=== PATIENT | male | born 1930 | race Caucasian/White ===

== ENCOUNTER 2017-01-12 15:24 | Emergency (ER) | payer MEDICARE, MEDICAID ==
--- NOTE | 2017-01-12 15:55 | ER Document Report ---
ED General - General Stated Complaint: LOW BACK PAIN, LEFT LEG PAIN Time seen by provider: 15:50 Mode of Arrival: Ambulatory Information source: Patient Notes: This is a pleasant 86-year-old man with multiple medical problems including coronary artery disease, CHF, atrial fibrillation (chronic anticoagulation), chronic kidney disease, diabetes. The patient presents to the emergency room with 3 weeks of lower back pain radiating down the left lower extremity. Patient denies any bowel incontinence, urinary retention or urinary continence, or any saddle anesthesia. TRAVEL OUTSIDE OF THE [place] IN LAST 30 DAYS: No - HPI Onset: Other Onset/Duration: Gradual - Last 3 weeks Quality of pain: Dull Severity: Moderate Pain Level: 2 Associated symptoms: denies: Chest pain, Fever, Shortness of breath Exacerbated by: Movement, Other Relieved by: Remaining still Similar symptoms previously: Yes Recently seen / treated by doctor: Yes - Related Data Allergies/Adverse Reactions: No Known Allergies Allergy (Verified 04/13/15 06:48) Past Medical History - General Information source: Patient - Social History Smoking Status: Never Smoker Cigarette use (# per day): No Chew tobacco use (# tins/day): No Frequency of alcohol use: None Drug Abuse: None Lives with: [facility] Family History: Reviewed & Not Pertinent Patient has suicidal ideation: No Patient has homicidal ideation: No - Past Medical History Cardiac Medical History: Reports: Hx Atrial Fibrillation, Hx Congestive Heart Failure, Hx Coronary Artery Disease, Hx Heart Attack, Hx Hypercholesterolemia, Hx Hypertension Pulmonary Medical History: Reports: Hx COPD, Hx Pneumonia Endocrine Medical History: Reports: Hx Diabetes Mellitus Type 2 GI Medical History: Reports: Hx Gastroesophageal Reflux Disease Musculoskeltal Medical History: Reports Hx Arthritis Psychiatric Medical History: Reports: Hx Dementia - Has not been diagnosed with dementia but the exam certainly suggests it., Hx Depression Past Surgical History: Reports: Hx Cardiac Catheterization - stents x 3, Hx Cardiac Surgery, Hx Cholecystectomy, 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 , Hx Coronary Stent, Hx Open Heart Surgery, Hx Orthopedic Surgery - Left hip x 2 - Immunizations Hx Diphtheria, Pertussis, Tetanus Vaccination: Yes - Pt unsure of last tetanus shot Hx Pneumococcal Vaccination: 10/06/13 Review of Systems - Review of Systems Notes: Review of systems: Constitutional: Denies fever, chills. EENT: Denies ear pain, sinus tenderness, throat pain, throat swelling. Cardiovascular: Denies chest pain, palpitations, dyspnea or edema. Respiratory: Denies wheezing, cough, hemoptysis. Abdomen: Denies abdominal pain, nausea, vomiting, diarrhea. Denies BRBPR or melena. Genitourinary: Denies dysuria, pyuria, hematuria, flank pain. Musculoskeletal: See H&P Neurologic: Denies headache, photophobia, neck stiffness, weakness. Denies loss of bowel or bladder function. Denies saddle anesthesia. Skin: Denies rash, lesions. Physical Exam - Vital signs Vitals: Temp Pulse Resp BP Pulse Ox 97.9 F 52 L 16 164/90 H 94 01/12/17 15:36 01/12/17 15:36 01/12/17 15:36 01/12/17 15:36 01/12/17 15:36 Notes: Physical exam: GENERAL: A 6-year-old man, alert and oriented 3, no acute distress HEAD: Atraumatic, normocephalic. EYES: Pupils equal round and reactive to light, extraocular movements intact, sclera anicteric, conjunctiva are normal. ENT: Moist mucous membranes. NECK: Normal range of motion, supple without lymphadenopathy or JVD. LUNGS: Breath sounds clear to auscultation bilaterally and equal. No wheezes rales or rhonchi. HEART: Regular rate and rhythm without murmurs, rubs or gallops. ABDOMEN: Soft, normoactive bowel sounds. No tenderness to palpation. No guarding, no rebound. No masses appreciated. Back: Patient does have vertebral tenderness in the lower lumbar area as well as paravertebral tenderness. There is no crepitus or skin changes. EXTREMITIES: He has good range of motion of both hips, no swelling or edema or calf tenderness. No clubbing or cyanosis. NEUROLOGICAL: Cranial nerves II through XII grossly intact. Normal speech, moving all extremities. PSYCH: Normal mood, normal affect. SKIN: Warm, Dry, normal turgor, no rashes or lesions noted. Course - Vital Signs Vital signs: Temp Pulse Resp BP Pulse Ox 98.1 F 56 L 16 148/52 H 94 01/12/17 17:00 01/12/17 17:00 01/12/17 17:00 01/12/17 17:00 01/12/17 17:00 Discharge - Discharge Clinical Impression: low back pain, radiculopathy Condition: Stable Disposition: HOME, SELF-CARE Instructions: Low Back Pain ([facility]), Warm Packs ([facility]) Additional Instructions: The CT of the lumbar spine shows mild compression of. There is osteopenia. Recommendations: Try the gabapentin as prescribed. Continue current medicines. Follow-up with a back specialist or pain specialist: I left the number for the [facility]. Return to the emergency room for worsening back pain, any numbness to the lower extremities, weakness to the lower extremities, difficulty urinating, loss of the ability to control urine, difficulty with bowel movements, loss of sensation to the saddle area. Prescriptions: Gabapentin 100 mg PO TID #10 capsule Referrals: VICK PETERSON MD [ACTIVE STAFF] - Follow up in 3-5 days
[2017-01-12 17:00] VITALS: BP 148/52
== END 2017-01-12 17:29 | disposition home or self-care (01) ==
LOC: ER 15:24
DX: M54.5 Low back pain (principal); M54.10 Radiculopathy, site unspecified; I25.10 Atherosclerotic heart disease of native coronary artery without angina pectoris; I13.0 Hypertensive heart and chronic kidney disease with heart failure and stage 1 through stage 4 chronic kidney disease, or unspecified chronic kidney disease; I50.9 Heart failure, unspecified; N18.9 Chronic kidney disease, unspecified; E11.22 Type 2 diabetes mellitus with diabetic chronic kidney disease; I48.91 Unspecified atrial fibrillation; Z79.01 Long term (current) use of anticoagulants; J44.9 Chronic obstructive pulmonary disease, unspecified; Z98.61 Coronary angioplasty status; Z95.1 Presence of aortocoronary bypass graft
CPT/HCPCS: 72131; 99284

== ENCOUNTER 2017-02-08 22:54 | Inpatient (IN) | payer MEDICARE, MEDICAID ==
--- NOTE | 2017-02-08 23:03 | ER Document Report ---
ED Respiratory Problem - General Mode of Arrival: Medic Information source: Patient, Emergency Med Personnel TRAVEL OUTSIDE OF THE [place] IN LAST 30 DAYS: No - HPI Patient complains to provider of: Other - see narrative Onset: Other Context: Other - pneumonia Short of Breath: Moderate Cough: Productive Similar symptoms previously: Yes Recently seen / treated by doctor: Yes <NIRU DHILLON - Last Filed: 02/09/17 05:47> <CYNTHIA HARDWICK - Last Filed: 03/03/17 11:06> - General Stated Complaint: RESPIRATORY DISTRESS Notes: Patient is an 86-year-old male who resides in a local [facility]pc that presents to the emergency department today with complaints of shortness of breath with a cough. According to EMS, the patient was recently diagnosed with pneumonia and started on Levaquin. Patient complains of left sided chest wall pain as well. EMS states when the patient was off oxygen, his oxygen saturation was in the low 70s. EMS states on 2L of oxygen the patient's oxygen saturation was in the low 80s. Patient has a history of CHF. (NIRU DHILLON) - Related Data Allergies/Adverse Reactions: No Known Allergies Allergy (Verified 04/13/15 06:48) Home Medications: Current Home Medications Acetaminophen [Tylenol 325 mg Tablet] 650 mg PO Q6HP PRN 02/09/17 [History] Amlodipine Besylate [Norvasc 5 mg Tablet] 5 mg PO DAILY 02/09/17 [History] Apixaban [Eliquis 2.5 mg Tablet] 2.5 mg PO Q12 02/09/17 [History] Atorvastatin Calcium [Lipitor 40 mg Tablet] 40 mg PO QHS 02/09/17 [History] Budesonide/Formoterol Fumarate [Symbicort HFA 160-4.5 mcg Inhaler 6 gm] 1 puff IH BID 02/09/17 [History] Doxepin HCl [Silenor] 6 mg PO QHS 02/09/17 [History] Insulin Aspart [Novolog Insulin (Aspart) 100 unit/mL] 0 units SQ .PERSLIDINGSCALE 02/09/17 [History] Ipratropium/Albuterol Sulfate [Duoneb 3 ml Ampul] 3 ml NEB RTTIDP PRN 02/09/17 [ History] Levetiracetam [Keppra 500 mg Tablet] 500 mg PO Q12 02/09/17 [History] Linagliptin [Tradjenta] 5 mg PO DAILY 02/09/17 [History] Omeprazole 20 mg PO DAILY 02/09/17 [History] Sennosides [Senna] 17.2 mg PO QHS 02/09/17 [History] Past Medical History - General Information source: Patient, [facility] Records - Social History Smoking Status: Unknown if Ever Smoked Cigarette use (# per day): No Frequency of alcohol use: None Drug Abuse: None Lives with: Family Family History: Reviewed & Not Pertinent - Past Medical History Cardiac Medical History: Reports: Hx Atrial Fibrillation, Hx Congestive Heart Failure, Hx Coronary Artery Disease, Hx Heart Attack, Hx Hypercholesterolemia, Hx Hypertension Pulmonary Medical History: Reports: Hx COPD, Hx Pneumonia Endocrine Medical History: Reports: Hx Diabetes Mellitus Type 2 GI Medical History: Reports: Hx Gastroesophageal Reflux Disease Musculoskeltal Medical History: Reports Hx Arthritis Psychiatric Medical History: Reports: Hx Dementia - Has not been diagnosed with dementia but the exam certainly suggests it., Hx Depression Past Surgical History: Reports: Hx Cardiac Catheterization - stents x 3, Hx Cardiac Surgery, Hx Cholecystectomy, 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 , Hx Coronary Stent, Hx Open Heart Surgery, Hx Orthopedic Surgery - Left hip x 2 - Immunizations Hx Diphtheria, Pertussis, Tetanus Vaccination: Yes - Pt unsure of last tetanus shot Hx Pneumococcal Vaccination: 10/06/13 <NIRU DHILLON - Last Filed: 02/09/17 05:47> Review of Systems - Review of Systems Constitutional: See HPI, Fever EENT: No symptoms reported Cardiovascular: No symptoms reported Respiratory: See HPI, Cough, Short of breath Gastrointestinal: No symptoms reported Genitourinary: No symptoms reported Male Genitourinary: No symptoms reported Musculoskeletal: No symptoms reported Skin: No symptoms reported Hematologic/Lymphatic: No symptoms reported Neurological/Psychological: No symptoms reported -: Yes All other systems reviewed and negative <NIRU DHILLON - Last Filed: 02/09/17 05:47> Physical Exam <NIRU DHILLON - Last Filed: 02/09/17 05:47> <CYNTHIA HARDWICK - Last Filed: 03/03/17 11:06> - Vital signs Vitals: Resp Pulse Ox 21 H 94 02/08/17 22:58 02/08/17 22:58 - Notes Notes: Physical Exam: General: Alert, appears well. HEENT: Normocephalic. Atraumatic. PERRL. Extraocular movements intact. Oropharynx clear. Neck: Supple. Non-tender. Respiratory: No respiratory distress. Rhonchi at the bases bilaterally. Cardiovascular: Regular rate and rhythm. Abdominal: Obese. Non-tender. No distension. Normal Bowel Sounds. Back: Non-tender. No deformity or step off. Extremities: Moves all four extremities. Upper extremities: Normal inspection. Normal ROM. Lower extremities: Trace pitting edema bilaterally. Neurological: Normal cognition. AAOx4. Normal speech. Psychological: Normal affect. Normal Mood. Skin: Warm. Dry. Normal color. (NIRU DHILLON) Course - Laboratory Result Diagrams: 02/08/17 23:20 02/08/17 23:20 <NIRU DHILLON - Last Filed: 02/09/17 05:47> - Laboratory Result Diagrams: 02/21/17 05:19 02/21/17 05:19 <CYNTHIA HARDWICK - Last Filed: 03/03/17 11:06> - Re-evaluation Re-evalutation: 02/09/17 02:25 Patient presents emergency, chief plain difficulty breathing. Patient has a history of CHF and COPD and is at [facility]. He is a DNR comfort care initially they said he was satting 80% on 2 L is not chronically on oxygen. On examination initially he was well-appearing nontoxic he had no conversational dyspnea but he had crackles throughout. I took him off his CPAP mask because he was tolerating that well. Patient was started on Levaquin today for questionable pneumonia. He is afebrile rectal temp. Chest x-ray shows bilateral failure with cardiomegaly questionable opacities which could or could not be pneumonia. One-handed blood cultures and treated with Javon and Zosyn. Addition to that he has a vascular congestion with left-sided pleural effusion. He has persistent renal insufficiency BUN/creatinine 65 and 1.29. BNP is 11,900 does have a white count elevation of 15,000 with 86 neutrophils. Blood gas is stable at this time. Reevaluation prior to admission he is sleeping 95% on 3 L with a normotensive pressure. And is in no respiratory distress. I did administer Lasix in addition to the IV antibiotics. And hospitalist contacted at [phone] ( CYNTHIA HARDWICK) - Vital Signs Vital signs: Temp Pulse Resp BP Pulse Ox 97.5 F 59 L 16 168/56 H 99 02/21/17 12:00 02/21/17 12:00 02/21/17 12:00 02/21/17 12:00 02/21/17 12:00 - Laboratory Laboratory results interpreted by me: 02/08/17 02/08/17 02/08/17 23:20 23:20 23:20 WBC 15.8 H RBC 3.66 L Hgb 11.1 L Hct 34.7 L RDW 15.6 H Seg Neuts % (Manual) 86 H Lymphocytes % (Manual) 2 L Metamyelocytes % 2 H Abs Neuts (Manual) 13.9 H Abs Lymphs (Manual) 0.3 L Abs Monocytes (Manual) 1.6 H Carbonic Acid ABG pCO2 ABG pO2 ABG O2 Saturation BUN 65 H Creatinine 1.29 H Est GFR (Non-Af Amer) 53 L Glucose 263 H NT-Pro-B Natriuret Pep 54705 H Urine Protein Urine Glucose (UA) Urine Blood 02/08/17 02/09/17 23:20 03:36 WBC RBC Hgb Hct RDW Seg Neuts % (Manual) Lymphocytes % (Manual) Metamyelocytes % Abs Neuts (Manual) Abs Lymphs (Manual) Abs Monocytes (Manual) Carbonic Acid 1.42 H ABG pCO2 47.2 H ABG pO2 68.8 L ABG O2 Saturation 92.9 L BUN Creatinine Est GFR (Non-Af Amer) Glucose NT-Pro-B Natriuret Pep Urine Protein 100 H Urine Glucose (UA) >=500 H Urine Blood SMALL H Critical Care Note - Critical Care Note Total time excluding time spent on procedures (mins): 65 <CYNTHIA HARDWICK - Last Filed: 03/03/17 11:06> Discharge <NIRU DHILLON - Last Filed: 02/09/17 05:47> - Discharge Admitting Provider: Estefanía Unit Admitted: Telemetry <CYNTHIA HARDWICK - Last Filed: 03/03/17 11:06> - Discharge Clinical Impression: acute exacerbation chf, acute pneumonia Acute exacerbation of CHF (congestive heart failure) Qualifiers: Congestive heart failure type: unspecified congestive heart failure type Qualified Code(s): I50.9 - Heart failure, unspecified Pneumonia Qualifiers: Pneumonia type: due to unspecified organism Laterality: unspecified laterality Lung location: unspecified part of lung Qualified Code(s): J18.9 - Pneumonia, unspecified organism Disposition: ADMITTED INPATIENT Scribe Attestation: 02/09/17 02:28 I personally performed the services described in the documentation reviewed the documentation recorded by my scribe in my presence and it accurately and completely records my words and actions (CYNTHIA HARDWICK) Scribe Documentation - Scribe Written by Scribe:: Juliet Perez, [id number] 02/09/2017 acting as scribe for :: El <NIRU DHILLON - Last Filed: 02/09/17 05:47>
[2017-02-08 23:43] LABS: HEMATOCRIT 34.7 % (37.9-51.0); HEMOGLOBIN 11.1 g/dL (13.5-17.0); HGB HCT DIFFERENCE -1.4; MEAN CORPUSCULAR HEMOGLOBIN 30.3 pg (27.0-33.4); MEAN CORPUSCULAR VOLUME 95 fl (80-97); RED BLOOD COUNT 3.66 10^6/uL (4.35-5.55); RED CELL DISTRIBUTION WIDTH 15.6 % (11.5-14.0); WHITE BLOOD COUNT 15.8 10^3/uL (4.0-10.5)
[2017-02-08 23:45] LABS: ARTERIAL BLOOD BASE EXCESS -0.3 mmol/L; ARTERIAL BLOOD O2 SATURATION 92.9 % (94-98)
[2017-02-08 23:56] LABS: ANION GAP 16 (5-19); BLOOD UREA NITROGEN 65 mg/dL (7-20); CALCIUM 9.8 mg/dL (8.4-10.2); CARBON DIOXIDE 23 mmol/L (22-30); CHLORIDE 104 mmol/L (98-107); CREATININE RESULT 1.29 mg/dL (0.52-1.25); GLUCOSE 263 mg/dL (75-110); POTASSIUM 4.7 mmol/L (3.6-5.0); SODIUM 142.9 mmol/L (137-145)
[2017-02-09 00:19] LABS: TROPONIN I 0.062 ng/mL
[2017-02-09 00:20] LABS: BASOPHILS % (MANUAL) 0 % (0-2); EOSINOPHILS % (MANUAL) 0 % (0-6); LYMPHOCYTES % (MANUAL) 2 % (13-45); NUCLEATED RED BLOOD CELLS 1 /100 WBC (0); TOTAL CELLS COUNTED 100
[2017-02-09 00:22] LABS: ANISOCYTOSIS SLIGHT; OVALOCYTES SLIGHT; POIKILOCYTOSIS SLIGHT; POLYCHROMASIA SLIGHT; TOXIC GRANULATION SLIGHT
[2017-02-09] MEDS ORDERED: FUROSEMIDE INJ/PF 100 MG/10 ML SDV IV ONE (01:35)
[2017-02-09] MEDS ORDERED: PIPERACILLIN/TAZOBACTAM 3.375 GM VIAL IV ONE (01:35)
[2017-02-09] MEDS ORDERED: VANCOMYCIN HCL INJ 1000 MG VIAL IV ONE (01:35)
[2017-02-09 04:17] LABS: APPEARANCE,URINE CLEAR; BILIRUBIN,URINE NEGATIVE (NEGATIVE); GLUCOSE, URINE >=500 mg/dL (NEGATIVE); KETONES,URINE NEGATIVE (NEGATIVE); LEUKOCYTE ESTERASE,URINE NEGATIVE (NEGATIVE); NITRITE,URINE NEGATIVE (NEGATIVE); PROTEIN,URINE 100 mg/dL (NEGATIVE); URINE SPECIFIC GRAVITY 1.009; UROBILINOGEN,URINE NEGATIVE mg/dL (<2.0)
[2017-02-09] MEDS: OXYCODONE HCL IR 5 MG TABLET PO PRN ×3 (07:02→21:58)
[2017-02-09] MEDS: CEFTRIAXONE 1 GM/D5W RTU 1 GM/50 ML RTUPB IV SCH (09:13)
--- NOTE | 2017-02-09 12:17 | PDOC H&P ---
History of Present Illness Admission Date/PCP: 02/09/17 06:55 Patient complains of: Difficulty with breathing History of Present Illness: KRISTINE DE ANDA is a 86 year old male patient of Dr Portillo resident at [facility] who was brought to the ED by medic due to worsening difficulty with breathing. Patient was recently diagnosed with pneumonia and started on Levofloxacin at the [facility]. Facility staff reported productive cough and patient reported difficulty with expectoration with left sided chest pain. EMS staff reported significant hypoxemia with oxygen saturation at low 70's on room air but did improve to the upper 80's on supplemental oxygen. There is no reported fever or chills. He does demonstrate hearing impairment. His initial evaluation on the ED suggested air space disease process with pleural effusion. He has extensive CVS disease process, COPD, GERD, Diabetes mellitus, osteoarthritis and hearing impairment. Past Medical History Cardiac Medical History: Reports: Atrial Fibrillation, Congestive Heart Failure , Coronary Artery Disease, Myocardial Infarction, Hyperlipidema, Hypertension Pulmonary Medical History: Reports: Chronic Obstructive Pulmonary Disease (COPD) , Pneumonia Endocrine Medical History: Reports: Diabetes Mellitus Type 2 GI Medical History: Reports: Gastroesophageal Reflux Disease Musculoskeltal Medical History: Reports: Arthritis Psychiatric Medical History: Reports: Dementia - Has not been diagnosed with dementia but the exam certainly suggests it., Depression Past Surgical History Past Surgical History: Reports: Cardiac Catheterization - stents x 3, Cholecystectomy, Coronary Artery Bypass Graft - 3 vessel, Coronary Stent, Orthopedic Surgery - Left hip x 2 Social History Lives with: Family Smoking Status: Unknown if Ever Smoked Frequency of Alcohol Use: None Hx Recreational Drug Use: No Drugs: None Hx Prescription Drug Abuse: No - Advance Directive Resuscitation Status: Do Not Resuscitate Family History Family History: Reviewed & Not Pertinent Parental Family History Reviewed: Yes Children Family History Reviewed: Yes Sibling(s) Family History Reviewed.: Yes Medication/Allergy Home Medications: Acetaminophen [Tylenol 325 mg Tablet] 650 mg PO Q6HP PRN 02/09/17 Amlodipine Besylate [Norvasc 5 mg Tablet] 5 mg PO DAILY 02/09/17 Apixaban [Eliquis 2.5 mg Tablet] 2.5 mg PO Q12 02/09/17 Atorvastatin Calcium [Lipitor 40 mg Tablet] 40 mg PO QHS 02/09/17 Budesonide/Formoterol Fumarate [Symbicort HFA 160-4.5 mcg Inhaler 6 gm] 1 puff IH BID 02/09/17 Doxepin HCl [Silenor] 6 mg PO QHS 02/09/17 Furosemide [Lasix] 20 mg PO BID 02/09/17 Insulin Aspart [Novolog Insulin (Aspart) 100 unit/mL] 0 units SQ .PERSLIDINGSCALE 02/09/17 Ipratropium/Albuterol Sulfate [Duoneb 3 ml Ampul] 3 ml NEB RTTIDP PRN 02/09/17 Levetiracetam [Keppra 500 mg Tablet] 500 mg PO Q12 02/09/17 Levofloxacin [Levaquin 500 mg Tablet] 500 mg PO DAILY 02/09/17 Linagliptin [Tradjenta] 5 mg PO DAILY 02/09/17 Omeprazole 20 mg PO DAILY 02/09/17 Prednisone [Deltasone 10 mg Tablet] 10 mg PO [id number] 02/09/17 Prednisone [Deltasone 20 mg Tablet] 20 mg PO [id number] 02/09/17 Prednisone [Deltasone 20 mg Tablet] 40 mg PO [id number] 02/09/17 Prednisone [Deltasone 20 mg Tablet] 60 mg PO [id number] 02/09/17 Sennosides [Senna] 17.2 mg PO QHS 02/09/17 Allergies/Adverse Reactions: No Known Allergies Allergy (Verified 04/13/15 06:48) Review of Systems Constitutional: ABSENT: chills, fever(s), headache(s), weight gain, weight loss Eyes: ABSENT: visual disturbances Ears: PRESENT: hearing changes Nose, Mouth, and Throat: ABSENT: as per HPI, headache(s), mouth pain, sore throat, vertigo, other Cardiovascular: PRESENT: edema Respiratory: ABSENT: cough, hemoptysis Gastrointestinal: ABSENT: abdominal pain, constipation, diarrhea, hematemesis, hematochezia, nausea, vomiting Musculoskeletal: PRESENT: deformity - related to joint involvement with arthritis Neurological: PRESENT: confusion - probable rlated to his age and hearing impairment, memory loss. ABSENT: abnormal gait, abnormal speech, dizziness, focal weakness, syncope Psychiatric: ABSENT: anxiety, depression, homidical ideation, suicidal ideation Hematologic/Lymphatic: PRESENT: as per HPI, easy bleeding, easy bruising, lymphadenopathy, other Physical Exam Vital Signs: Temp Pulse Resp BP Pulse Ox 97.5 F 56 L 18 156/51 H 94 02/09/17 10:00 02/09/17 10:00 02/09/17 10:00 02/09/17 10:00 02/09/17 10:00 Intake & Output 02/08/17 02/09/17 02/10/17 06:59 06:59 06:59 Intake Total 120 Balance 120 General appearance: PRESENT: cooperative, mild distress - on supplemental oxygen at 2L/min Head exam: PRESENT: atraumatic, normocephalic Eye exam: PRESENT: conjunctiva pink, EOMI, PERRLA. ABSENT: scleral icterus Ear exam: PRESENT: normal external ear exam Mouth exam: PRESENT: moist Throat exam: ABSENT: post pharyngeal erythema, tonsillar erythema, tonsillar exudate, tonsillogmegaly, other Neck exam: PRESENT: full ROM. ABSENT: carotid bruit, JVD, lymphadenopathy, thyromegaly Respiratory exam: PRESENT: chest wall tenderness, clear to auscultation brandy, crackles, decreased breath sounds - bilaterally at lung bases Cardiovascular exam: PRESENT: RRR. ABSENT: diastolic murmur, rubs, systolic murmur Pulses: PRESENT: normal dorsalis pedis pul, +2 pedal pulses bilateral Vascular exam: PRESENT: normal capillary refill GI/Abdominal exam: PRESENT: normal bowel sounds, soft. ABSENT: distended, guarding, mass, organolmegaly, rebound, tenderness Rectal exam: PRESENT: deferred Extremities exam: PRESENT: pedal edema - to below knee level bilaterally Musculoskeletal exam: PRESENT: deformity - related to multiple joints involvement with arthritis Neurological exam: PRESENT: alert, awake, oriented to situation Psychiatric exam: PRESENT: appropriate affect, normal mood. ABSENT: homicidal ideation, suicidal ideation Skin exam: PRESENT: dry, intact, warm. ABSENT: cyanosis, rash Results Laboratory Results: I reviewed results on [employer]. These were reviewed and form significant part of my decision making. Impressions: Chest X-Ray 02/08/17 23:04 IMPRESSION: Cardiomegaly and mild central vascular congestion. Moderate left pleural effusion. Bibasilar airspace opacities, may represent pneumonia or asymmetric edema. Radiographic followup to resolution recommended. Assessment & Plan - Diagnosis (1) Acute on chronic systolic CHF (congestive heart failure) Is this a current diagnosis for this admission?: YesPlan: See covering admitting physician orders (2) Pneumonia Qualifiers: Pneumonia type: due to unspecified organism Laterality: unspecified laterality Lung location: unspecified part of lung Qualified Code(s) : J18.9 - Pneumonia, unspecified organism Is this a current diagnosis for this admission?: YesPlan: See covering admitting physician orders (3) Acute and chronic respiratory failure with hypoxia Is this a current diagnosis for this admission?: YesPlan: See covering admitting physician orders (4) Chronic obstructive pulmonary disease Qualifiers: COPD type: COPD with acute lower respiratory infection Qualified Code(s): J44.0 - Chronic obstructive pulmonary disease with acute lower respiratory infection Is this a current diagnosis for this admission?: YesPlan: See covering admitting physician orders (5) DNR (do not resuscitate) Is this a current diagnosis for this admission?: YesPlan: See covering admitting physician orders (6) Diabetes mellitus, type II Qualifiers: Diabetes mellitus complication status: with kidney complications Diabetes mellitus complication detail: with chronic kidney disease 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 insulin use: without usp use Chronic kidney disease stage: stage 3 (moderate) Qualified Code(s): E11.22 - Type 2 diabetes mellitus with diabetic chronic kidney disease; N18.1 - Chronic kidney disease, stage 1; Z79.4 - MCFP (current) use of insulin Plan: See covering admitting physician orders (7) Gastroesophageal reflux disease Qualifiers: Esophagitis presence: without esophagitis Qualified Code(s): K21.9 - Gastro-esophageal reflux disease without esophagitis Is this a current diagnosis for this admission?: YesPlan: See covering admitting physician orders (8) Chronic atrial fibrillation Is this a current diagnosis for this admission?: YesPlan: See covering admitting physician orders (9) Hypertension Qualifiers: Hypertension type: essential hypertension Qualified Code(s): I10 - Essential (primary) hypertension Is this a current diagnosis for this admission?: YesPlan: See covering admitting physician orders - Time Time Spent: 50 to 70 Minutes Medications reviewed and adjusted accordingly: Yes Anticipated discharge: SNF Within: Other - Inpatient Certification Based on my medical assessment, after consideration of the patient's comorbidities, presenting symptoms, or acuity I expect that the services needed warrant INPATIENT care.: Yes I certify that my determination is in accordance with my understanding of Medicare's requirements for reasonable and necessary INPATIENT services [42 CFR 412.3e].: Yes Medical Necessity: Need Close Monitoring Due to Risk of Patient Decompensation, Need For IV Fluids, Need For Continuous Telemetry Monitoring, Need for Nebulizer Therapy and Monitoring of Response, Need for IV Antibiotics, Risk of Complication if Not Cared For in Hospital Post Hospital Care: D/C or Transfer Summary - Plan Summary Plan Summary: See covering admitting physician orders
[2017-02-09] MEDS ORDERED: GLUCAGON,HUMAN RECOMB 1 MG INJ IM PRN (12:24)
[2017-02-09] MEDS ORDERED: DEXTROSE 50%-WATER 25 GM/50 ML DISP.SYRIN IV PRN ×2 (12:24)
[2017-02-09] MEDS ORDERED: DEXTROSE 40% GEL 15 GM TUBE PO PRN ×2 (12:24)
[2017-02-09] MEDS: CLINDAMYCIN 600 MG/D5W RTU 50 ML IV SCH ×2 (13:56→21:58)
[2017-02-09] MEDS: ACETAMINOPHEN 325 MG TABLET PO PRN ×2 (15:01→21:58)
[2017-02-09] MEDS: BUDESONIDE/FORMOTEROL 160-4.5 MCG 60 PUFF/6 GM MDI IH SCH (17:00)
[2017-02-09] MEDS: INSULIN LISPRO 100 UNIT/ML 3 ML VIAL SUBCUT PRN (17:01)
[2017-02-09] MEDS: ATORVASTATIN CALCIUM 40 MG TABLET PO SCH (21:57)
[2017-02-09] MEDS: APIXABAN 2.5 MG TABLET PO SCH (21:58)
[2017-02-09] MEDS ORDERED: (PENDING PHARMACY ID) (Sennosides [Senna] 17.2 MG) PO SCH (22:00)
[2017-02-09] MEDS: LEVETIRACETAM 500 MG TABLET PO SCH (22:00)
[2017-02-10] MEDS: ACETAMINOPHEN 325 MG TABLET PO PRN ×2 (03:59→17:39)
[2017-02-10] MEDS: OXYCODONE HCL IR 5 MG TABLET PO PRN ×2 (03:59→17:45)
[2017-02-10 05:40] LABS: HEMATOCRIT 35.2 % (37.9-51.0); HEMOGLOBIN 11.6 g/dL (13.5-17.0); HGB HCT DIFFERENCE -0.4; MEAN CORPUSCULAR HEMOGLOBIN 30.6 pg (27.0-33.4); MEAN CORPUSCULAR HGB CONC 32.8 g/dL (32.0-36.0); MEAN CORPUSCULAR VOLUME 93 fl (80-97); RED BLOOD COUNT 3.78 10^6/uL (4.35-5.55); WHITE BLOOD COUNT 15.3 10^3/uL (4.0-10.5)
[2017-02-10 05:55] LABS: ALANINE AMINOTRANSFERASE 27 U/L (21-72); ALBUMIN 3.3 g/dL (3.5-5.0); ALKALINE PHOSPHATASE 88 U/L (38-126); ANION GAP 7 (5-19); ASPARTATE AMINO TRANSFERASE 19 U/L (17-59); BILIRUBIN,DIRECT 0.5 mg/dL (0.0-0.4); BILIRUBIN,TOTAL 1.1 mg/dL (0.2-1.3); BLOOD UREA NITROGEN 59 mg/dL (7-20); CALCIUM 9.2 mg/dL (8.4-10.2); CARBON DIOXIDE 29 mmol/L (22-30); CHLORIDE 105 mmol/L (98-107); CHOLESTEROL 144.02 mg/dL (0-200); Direct HDL 80 mg/dL (>40); GLUCOSE 232 mg/dL (75-110); POTASSIUM 4.8 mmol/L (3.6-5.0); SODIUM 141.4 mmol/L (137-145); TOTAL PROTEIN 6.4 g/dL (6.3-8.2); TRIGLYCERIDES 79 mg/dL (<150)
[2017-02-10 06:06] LABS: DIRECT LDL 31 mg/dL (<100)
[2017-02-10 06:16] LABS: BAND NEUTROPHILS % (MANUAL) 1 % (3-5); BASOPHILS % (MANUAL) 0 % (0-2); EOSINOPHILS % (MANUAL) 2 % (0-6); LYMPHOCYTES % (MANUAL) 8 % (13-45); TOTAL CELLS COUNTED 100
[2017-02-10 06:17] LABS: ANISOCYTOSIS SLIGHT; HYPOCHROMASIA SLIGHT; OVALOCYTES SLIGHT; POIKILOCYTOSIS SLIGHT
[2017-02-10] MEDS: LANSOPRAZOLE 30 MG TAB.RAP.DR PO SCH (06:21)
[2017-02-10] MEDS: CLINDAMYCIN 600 MG/D5W RTU 50 ML IV SCH ×3 (06:21→22:52)
[2017-02-10] MEDS: CEFTRIAXONE 1 GM/D5W RTU 1 GM/50 ML RTUPB IV SCH (09:56)
[2017-02-10] MEDS: SITAGLIPTIN PHOSPHATE 50 MG TABLET PO SCH (09:57)
[2017-02-10] MEDS: LEVETIRACETAM 500 MG TABLET PO SCH ×2 (09:57→22:52)
[2017-02-10] MEDS: AMLODIPINE BESYLATE 5 MG TABLET PO SCH (09:58)
[2017-02-10] MEDS: FUROSEMIDE INJ/PF 40 MG/4 ML SDV IV SCH (09:58)
[2017-02-10] MEDS: BUDESONIDE/FORMOTEROL 160-4.5 MCG 60 PUFF/6 GM MDI IH SCH ×2 (09:58→17:39)
[2017-02-10] MEDS ORDERED: (PENDING PHARMACY ID) (Linagliptin [Tradjenta] 5 MG) PO SCH (10:00)
[2017-02-10] MEDS: APIXABAN 2.5 MG TABLET PO SCH ×2 (10:02→22:51)
[2017-02-10] MEDS: IPRATROPIUM/ALBUTEROL 0.5-2.5 MG/3 ML AMPUL NEB PRN (11:43)
[2017-02-10] MEDS: INSULIN LISPRO 100 UNIT/ML 3 ML VIAL SUBCUT PRN ×2 (14:32→22:51)
[2017-02-10] MEDS: SENNOSIDES/DOCUSATE 8.6-50 MG 1 EACH TABLET PO SCH (22:51)
[2017-02-10] MEDS: ATORVASTATIN CALCIUM 40 MG TABLET PO SCH (22:52)
[2017-02-11] MEDS: ACETAMINOPHEN 325 MG TABLET PO PRN ×2 (03:31→17:57)
[2017-02-11] MEDS: CLINDAMYCIN 600 MG/D5W RTU 50 ML IV SCH ×3 (05:31→21:27)
[2017-02-11] MEDS: LANSOPRAZOLE 30 MG TAB.RAP.DR PO SCH (05:32)
[2017-02-11] MEDS: OXYCODONE HCL IR 5 MG TABLET PO PRN ×2 (05:34→17:57)
[2017-02-11] MEDS: FUROSEMIDE INJ/PF 40 MG/4 ML SDV IV SCH (10:28)
[2017-02-11] MEDS: SITAGLIPTIN PHOSPHATE 50 MG TABLET PO SCH (10:29)
[2017-02-11] MEDS: APIXABAN 2.5 MG TABLET PO SCH ×2 (10:29→21:27)
[2017-02-11] MEDS: LEVETIRACETAM 500 MG TABLET PO SCH ×2 (10:29→21:27)
[2017-02-11] MEDS: CEFTRIAXONE 1 GM/D5W RTU 1 GM/50 ML RTUPB IV SCH (10:29)
[2017-02-11] MEDS: BUDESONIDE/FORMOTEROL 160-4.5 MCG 60 PUFF/6 GM MDI IH SCH ×2 (10:29→17:57)
[2017-02-11] MEDS: AMLODIPINE BESYLATE 5 MG TABLET PO SCH (10:29)
[2017-02-11] MEDS: IPRATROPIUM/ALBUTEROL 0.5-2.5 MG/3 ML AMPUL NEB PRN (11:07)
[2017-02-11] MEDS: INSULIN LISPRO 100 UNIT/ML 3 ML VIAL SUBCUT PRN ×2 (18:29→21:56)
--- NOTE | 2017-02-11 18:39 | PDOC PROGRESS REPORT ---
Subjective Progress Note for:: 02/11/17 Subjective:: Patient complains of left-sided pleuritic chest pain. Physical Exam Vital Signs: Temp Pulse Resp BP Pulse Ox 97.9 F 65 18 151/42 H 100 02/11/17 11:46 02/11/17 11:46 02/11/17 11:46 02/11/17 11:46 02/11/17 11:46 Intake & Output 02/10/17 02/11/17 02/12/17 06:59 06:59 06:59 Intake Total 1080 750 Balance 1080 750 General appearance: PRESENT: no acute distress Eye exam: PRESENT: conjunctiva pink. ABSENT: scleral icterus Mouth exam: PRESENT: moist, tongue midline Neck exam: PRESENT: JVD Respiratory exam: PRESENT: decreased breath sounds - Decreased breath sounds in the left base., rales - Left basilar respiratory Rales. ABSENT: rhonchi, wheezes Cardiovascular exam: PRESENT: RRR. ABSENT: diastolic murmur, rubs, systolic murmur Vascular exam: PRESENT: normal capillary refill GI/Abdominal exam: PRESENT: normal bowel sounds, soft. ABSENT: distended, guarding, mass, organolmegaly, rebound, tenderness Extremities exam: PRESENT: pedal edema, +1 edema. ABSENT: calf tenderness, clubbing Neurological exam: PRESENT: alert, awake, oriented to person, oriented to place , oriented to time, oriented to situation, CN II-XII grossly intact. ABSENT: motor sensory deficit Psychiatric exam: PRESENT: appropriate affect Skin exam: PRESENT: dry, intact, warm. ABSENT: cyanosis, rash Results Laboratory Results: 02/10/17 05:06 02/10/17 05:06 Impressions: Chest X-Ray 02/08/17 23:04 IMPRESSION: Cardiomegaly and mild central vascular congestion. Moderate left pleural effusion. Bibasilar airspace opacities, may represent pneumonia or asymmetric edema. Radiographic followup to resolution recommended. Assessment & Plan - Diagnosis (1) Acute and chronic respiratory failure with hypoxia Is this a current diagnosis for this admission?: YesPlan: This most likely secondary to both pneumonia and congestive heart failure. Patient initially required BiPAP but is improving. (2) Acute on chronic systolic CHF (congestive heart failure) Is this a current diagnosis for this admission?: YesPlan: Patient is receiving IV Lasix. He still has left basilar rales. (3) Pneumonia Qualifiers: Pneumonia type: due to unspecified organism Laterality: unspecified laterality Lung location: unspecified part of lung Qualified Code(s) : J18.9 - Pneumonia, unspecified organism Is this a current diagnosis for this admission?: YesPlan: Continue with the Rocephin. Patient is complaining of left-sided pleuritic chest pain. This may be all related to the pneumonia however given his worsening pain will get a chest CT to rule out a pulmonary embolism. (4) Atrial fibrillation Is this a current diagnosis for this admission?: YesPlan: Patient is rate controlled at this time. (5) CAD (coronary artery disease) Qualifiers: Coronary Disease-Associated Artery/Lesion type: [place] artery [place] vs. transplanted heart: [place] heart Associated angina: without angina Qualified Code(s): I25.10 - Atherosclerotic heart disease of [place] coronary artery without angina pectoris Is this a current diagnosis for this admission?: YesPlan: Complaints of pleuritic chest pain. This does not appear to be cardiac in nature. 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 (8) Gastroesophageal reflux disease Qualifiers: Esophagitis presence: without esophagitis Qualified Code(s): K21.9 - Gastro-esophageal reflux disease without esophagitis Is this a current diagnosis for this admission?: Yes (9) Hypertension Qualifiers: Hypertension type: essential hypertension Qualified Code(s): I10 - Essential (primary) hypertension Is this a current diagnosis for this admission?: Yes - Time Time Spent with patient: 25-34 minutes - Plan Summary Plan Summary: We'll continue with IV Lasix and get a chest CT tonight.
[2017-02-11] MEDS: SENNOSIDES/DOCUSATE 8.6-50 MG 1 EACH TABLET PO SCH (21:27)
[2017-02-11] MEDS: ATORVASTATIN CALCIUM 40 MG TABLET PO SCH (21:27)
[2017-02-12] MEDS: CLINDAMYCIN 600 MG/D5W RTU 50 ML IV SCH ×3 (05:50→22:21)
[2017-02-12] MEDS: LANSOPRAZOLE 30 MG TAB.RAP.DR PO SCH (05:52)
[2017-02-12] MEDS: OXYCODONE HCL IR 5 MG TABLET PO PRN ×4 (05:52→22:21)
[2017-02-12] MEDS: ACETAMINOPHEN 325 MG TABLET PO PRN ×3 (05:52→22:21)
[2017-02-12] MEDS: LEVETIRACETAM 500 MG TABLET PO SCH ×2 (09:05→22:21)
[2017-02-12] MEDS: AMLODIPINE BESYLATE 5 MG TABLET PO SCH (09:05)
[2017-02-12] MEDS: SITAGLIPTIN PHOSPHATE 50 MG TABLET PO SCH (09:05)
[2017-02-12] MEDS: CEFTRIAXONE 1 GM/D5W RTU 1 GM/50 ML RTUPB IV SCH (09:06)
[2017-02-12] MEDS: APIXABAN 2.5 MG TABLET PO SCH ×2 (09:06→22:27)
[2017-02-12] MEDS: BUDESONIDE/FORMOTEROL 160-4.5 MCG 60 PUFF/6 GM MDI IH SCH ×2 (09:06→17:22)
[2017-02-12] MEDS: FUROSEMIDE INJ/PF 40 MG/4 ML SDV IV SCH (09:06)
--- NOTE | 2017-02-12 10:53 | PDOC PROGRESS REPORT ---
Subjective Progress Note for:: 02/12/17 Subjective:: Patient complains of left-sided pleuritic chest pain. CT angiography of the lungs yesterday was negative for any pulmonary embolism. Physical Exam Vital Signs: Temp Pulse Resp BP Pulse Ox 97.6 F 62 18 155/54 H 95 02/12/17 03:15 02/12/17 07:00 02/12/17 03:15 02/12/17 03:15 02/12/17 08:02 Intake & Output 02/11/17 02/12/17 02/13/17 06:59 06:59 06:59 Intake Total 750 537 Balance 750 537 General appearance: PRESENT: no acute distress Eye exam: PRESENT: conjunctiva pink. ABSENT: scleral icterus Ear exam: PRESENT: normal external ear exam Mouth exam: PRESENT: moist, tongue midline Neck exam: ABSENT: JVD Respiratory exam: PRESENT: decreased breath sounds - Decreased breath sounds in the left base., rales - Left basilar inspiratory rails. ABSENT: rhonchi, wheezes Cardiovascular exam: PRESENT: RRR. ABSENT: diastolic murmur, rubs, systolic murmur GI/Abdominal exam: PRESENT: normal bowel sounds, soft. ABSENT: distended, guarding, mass, organolmegaly, rebound, tenderness Extremities exam: ABSENT: calf tenderness, clubbing, pedal edema Neurological exam: PRESENT: alert, awake, oriented to person, oriented to place , oriented to time, oriented to situation, CN II-XII grossly intact. ABSENT: motor sensory deficit Psychiatric exam: PRESENT: appropriate affect Skin exam: PRESENT: dry, intact, warm. ABSENT: cyanosis, rash Results Laboratory Results: 02/10/17 05:06 02/10/17 05:06 Impressions: Chest X-Ray 02/08/17 23:04 IMPRESSION: Cardiomegaly and mild central vascular congestion. Moderate left pleural effusion. Bibasilar airspace opacities, may represent pneumonia or asymmetric edema. Radiographic followup to resolution recommended. Chest/Abdomen CTA 02/11/17 00:00 IMPRESSION: No evidence for pulmonary embolic disease. Moderate size bilateral pleural effusions are identified with a possible loculated component on the left. There is associated airspace consolidation most consistent with atelectatic changes although I cannot exclude pneumonic consolidations. Other findings as noted above Assessment & Plan - Diagnosis (1) Acute and chronic respiratory failure with hypoxia Is this a current diagnosis for this admission?: YesPlan: This most likely secondary to both pneumonia and congestive heart failure. Patient initially required BiPAP but is improving. (2) Acute on chronic systolic CHF (congestive heart failure) Is this a current diagnosis for this admission?: YesPlan: Patient is receiving IV Lasix. He still has left basilar rales. (3) Pneumonia Qualifiers: Pneumonia type: due to unspecified organism Laterality: unspecified laterality Lung location: unspecified part of lung Qualified Code(s) : J18.9 - Pneumonia, unspecified organism Is this a current diagnosis for this admission?: YesPlan: Continue with the Rocephin. Patient is complaining of left-sided pleuritic chest pain. Chest CTA was negative for pulmonary embolism. He does have an effusion. (4) Atrial fibrillation Is this a current diagnosis for this admission?: YesPlan: Patient is rate controlled at this time. (5) CAD (coronary artery disease) Qualifiers: Coronary Disease-Associated Artery/Lesion type: [place] artery [place] vs. transplanted heart: [place] heart Associated angina: without angina Qualified Code(s): I25.10 - Atherosclerotic heart disease of [place] coronary artery without angina pectoris Is this a current diagnosis for this admission?: YesPlan: Complaints of pleuritic chest pain. This does not appear to be cardiac in nature. (6) DNR (do not resuscitate) Is this a current diagnosis for this admission?: Yes (7) Diabetes mellitus, type II Qualifiers: Diabetes mellitus complication status: with kidney complications Diabetes mellitus complication detail: with chronic kidney disease Diabetes mellitus fpc insulin use: without fpc use Chronic kidney disease stage: stage 3 (moderate) Qualified Code(s): E11.22 - Type 2 diabetes mellitus with diabetic chronic kidney disease; N18.1 - Chronic kidney disease, stage 1; Z79.4 - USP (current) use of insulin Is this a current diagnosis for this admission?: YesPlan: Continue with sliding scale insulin. Will change to a regular diet as the patient is insistent he does not have to follow diabetic diet (8) Gastroesophageal reflux disease Qualifiers: Esophagitis presence: without esophagitis Qualified Code(s): K21.9 - Gastro-esophageal reflux disease without esophagitis Is this a current diagnosis for this admission?: YesPlan: Asymptomatic (9) Hypertension Qualifiers: Hypertension type: essential hypertension Qualified Code(s): I10 - Essential (primary) hypertension Is this a current diagnosis for this admission?: Yes - Time Time Spent with patient: 25-34 minutes - Inpatient Certification Medical Necessity: Need Close Monitoring Due to Risk of Patient Decompensation, Need for IV Antibiotics
[2017-02-12] MEDS: SENNOSIDES/DOCUSATE 8.6-50 MG 1 EACH TABLET PO SCH (22:21)
[2017-02-12] MEDS: INSULIN LISPRO 100 UNIT/ML 3 ML VIAL SUBCUT PRN (22:21)
[2017-02-12] MEDS: ATORVASTATIN CALCIUM 40 MG TABLET PO SCH (22:21)
[2017-02-13] MEDS: CLINDAMYCIN 600 MG/D5W RTU 50 ML IV SCH ×3 (05:50→20:53)
[2017-02-13] MEDS: OXYCODONE HCL IR 5 MG TABLET PO PRN ×2 (05:50→20:53)
[2017-02-13] MEDS: ACETAMINOPHEN 325 MG TABLET PO PRN (05:51)
[2017-02-13] MEDS: LANSOPRAZOLE 30 MG TAB.RAP.DR PO SCH (05:53)
[2017-02-13 06:27] LABS: ABSOLUTE EOSINOPHILS # (AUTO) 0.4 10^3/uL (0.0-0.6); ABSOLUTE NEUT (AUTO) 5.6 10^3/uL (1.7-8.2); BASOPHILS % (AUTO) 0.4 % (0-2); EOSINOPHILS % (AUTO) 4.6 % (0-6); HEMATOCRIT 35.7 % (37.9-51.0); HEMOGLOBIN 11.5 g/dL (13.5-17.0); HGB HCT DIFFERENCE -1.2; LYMPHOCYTES % (AUTO) 12.3 % (13-45); MEAN CORPUSCULAR HEMOGLOBIN 30.1 pg (27.0-33.4); MEAN CORPUSCULAR HGB CONC 32.1 g/dL (32.0-36.0); MEAN CORPUSCULAR VOLUME 94 fl (80-97); MONOCYTES % (AUTO) 12.4 % (3-13); RED CELL DISTRIBUTION WIDTH 15.3 % (11.5-14.0); SEGMENTED NEUTROPHILS % (AUTO) 70.3 % (42-78); WHITE BLOOD COUNT 7.9 10^3/uL (4.0-10.5)
[2017-02-13 06:47] LABS: ANION GAP 11 (5-19); BLOOD UREA NITROGEN 42 mg/dL (7-20); CALCIUM 8.7 mg/dL (8.4-10.2); CARBON DIOXIDE 32 mmol/L (22-30); CHLORIDE 103 mmol/L (98-107); CREATININE RESULT 1.08 mg/dL (0.52-1.25); GLUCOSE 91 mg/dL (75-110); POTASSIUM 4.6 mmol/L (3.6-5.0); SODIUM 146.3 mmol/L (137-145)
[2017-02-13] MEDS: CEFTRIAXONE 1 GM/D5W RTU 1 GM/50 ML RTUPB IV SCH (09:46)
[2017-02-13] MEDS: LEVETIRACETAM 500 MG TABLET PO SCH ×2 (09:48→20:57)
[2017-02-13] MEDS: SITAGLIPTIN PHOSPHATE 50 MG TABLET PO SCH (09:48)
[2017-02-13] MEDS: FUROSEMIDE INJ/PF 40 MG/4 ML SDV IV SCH (09:48)
[2017-02-13] MEDS: APIXABAN 2.5 MG TABLET PO SCH ×2 (09:48→20:55)
[2017-02-13] MEDS: BUDESONIDE/FORMOTEROL 160-4.5 MCG 60 PUFF/6 GM MDI IH SCH ×2 (09:49→17:18)
[2017-02-13] MEDS: AMLODIPINE BESYLATE 5 MG TABLET PO SCH (09:49)
--- NOTE | 2017-02-13 11:59 | PDOC PROGRESS REPORT ---
Subjective Progress Note for:: 02/13/17 Subjective:: Patient complains of left-sided pleuritic chest pain. Physical Exam Vital Signs: Temp Pulse Resp BP Pulse Ox 97.3 F 58 L 18 152/48 H 100 02/13/17 01:04 02/13/17 11:24 02/13/17 11:24 02/13/17 01:04 02/13/17 01:04 Intake & Output 02/12/17 02/13/17 02/14/17 06:59 06:59 06:59 Intake Total 537 250 Balance 537 250 General appearance: PRESENT: no acute distress Eye exam: PRESENT: conjunctiva pink. ABSENT: scleral icterus Mouth exam: PRESENT: moist, tongue midline Neck exam: ABSENT: JVD Respiratory exam: PRESENT: decreased breath sounds - Decreased breath sounds in the left base., rales - Left basilar rales. ABSENT: rhonchi, wheezes Cardiovascular exam: PRESENT: RRR. ABSENT: diastolic murmur, rubs, systolic murmur GI/Abdominal exam: PRESENT: normal bowel sounds, soft. ABSENT: distended, guarding, mass, organolmegaly, rebound, tenderness Extremities exam: ABSENT: calf tenderness, clubbing, pedal edema Neurological exam: PRESENT: alert, awake, oriented to person, oriented to place , oriented to time, oriented to situation, CN II-XII grossly intact. ABSENT: motor sensory deficit Psychiatric exam: PRESENT: appropriate affect Skin exam: PRESENT: dry, intact, warm. ABSENT: cyanosis, rash Results Laboratory Results: 02/13/17 05:41 02/13/17 05:41 02/13/17 02/13/17 05:41 05:41 WBC 7.9 RBC 3.80 L Hgb 11.5 L Hct 35.7 L MCV 94 MCH 30.1 MCHC 32.1 RDW 15.3 H Plt Count 130 L Seg Neutrophils % 70.3 Lymphocytes % 12.3 L Monocytes % 12.4 Eosinophils % 4.6 Basophils % 0.4 Absolute Neutrophils 5.6 Absolute Lymphocytes 1.0 Absolute Monocytes 1.0 Absolute Eosinophils 0.4 Absolute Basophils 0.0 Sodium 146.3 H Potassium 4.6 Chloride 103 Carbon Dioxide 32 H Anion Gap 11 BUN 42 H Creatinine 1.08 Est GFR ( Amer) > 60 Est GFR (Non-Af Amer) > 60 Glucose 91 Calcium 8.7 Impressions: Chest X-Ray 02/08/17 23:04 IMPRESSION: Cardiomegaly and mild central vascular congestion. Moderate left pleural effusion. Bibasilar airspace opacities, may represent pneumonia or asymmetric edema. Radiographic followup to resolution recommended. Chest/Abdomen CTA 02/11/17 00:00 IMPRESSION: No evidence for pulmonary embolic disease. Moderate size bilateral pleural effusions are identified with a possible loculated component on the left. There is associated airspace consolidation most consistent with atelectatic changes although I cannot exclude pneumonic consolidations. Other findings as noted above Assessment & Plan - Diagnosis (1) Acute and chronic respiratory failure with hypoxia Is this a current diagnosis for this admission?: YesPlan: This most likely secondary to both pneumonia and congestive heart failure. Patient initially required BiPAP but is improving. (2) Acute on chronic systolic CHF (congestive heart failure) Is this a current diagnosis for this admission?: YesPlan: Patient is receiving IV Lasix. He still has left basilar rales. (3) Pneumonia Qualifiers: Pneumonia type: due to unspecified organism Laterality: unspecified laterality Lung location: unspecified part of lung Qualified Code(s) : J18.9 - Pneumonia, unspecified organism Is this a current diagnosis for this admission?: YesPlan: Continue with the Rocephin. Patient is complaining of left-sided pleuritic chest pain. Chest CTA was negative for pulmonary embolism. He does have an effusion. If he does not improve in the next 24-48 hours we'll consult pulmonary medicine (4) Atrial fibrillation Is this a current diagnosis for this admission?: YesPlan: Patient is rate controlled at this time. (5) CAD (coronary artery disease) Qualifiers: Coronary Disease-Associated Artery/Lesion type: [place] artery [place] vs. transplanted heart: [place] heart Associated angina: without angina Qualified Code(s): I25.10 - Atherosclerotic heart disease of [place] coronary artery without angina pectoris Is this a current diagnosis for this admission?: YesPlan: Complaints of pleuritic chest pain. This does not appear to be cardiac in nature. 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 (8) Gastroesophageal reflux disease Qualifiers: Esophagitis presence: without esophagitis Qualified Code(s): K21.9 - Gastro-esophageal reflux disease without esophagitis Is this a current diagnosis for this admission?: YesPlan: Asymptomatic (9) Hypertension Qualifiers: Hypertension type: essential hypertension Qualified Code(s): I10 - Essential (primary) hypertension Is this a current diagnosis for this admission?: Yes - Time Time Spent with patient: 25-34 minutes - Inpatient Certification Medical Necessity: Need Close Monitoring Due to Risk of Patient Decompensation, Need for IV Antibiotics
[2017-02-13] MEDS: INSULIN LISPRO 100 UNIT/ML 3 ML VIAL SUBCUT PRN (12:54)
[2017-02-13] MEDS: ATORVASTATIN CALCIUM 40 MG TABLET PO SCH (20:52)
[2017-02-13] MEDS: SENNOSIDES/DOCUSATE 8.6-50 MG 1 EACH TABLET PO SCH (20:52)
[2017-02-14] MEDS: OXYCODONE HCL IR 5 MG TABLET PO PRN ×3 (03:17→17:22)
[2017-02-14 04:58] LABS: ABSOLUTE BASOPHILS # (AUTO) 0.1 10^3/uL (0.0-0.2); ABSOLUTE EOSINOPHILS # (AUTO) 0.2 10^3/uL (0.0-0.6); ABSOLUTE LYMPHOCYTES (AUTO) 0.9 10^3/uL (0.5-4.7); ABSOLUTE MONOCYTES (AUTO) 0.9 10^3/uL (0.1-1.4); ABSOLUTE NEUT (AUTO) 5.6 10^3/uL (1.7-8.2); BASOPHILS % (AUTO) 0.8 % (0-2); HEMATOCRIT 33.3 % (37.9-51.0); HEMOGLOBIN 10.9 g/dL (13.5-17.0); HGB HCT DIFFERENCE -0.6; LYMPHOCYTES % (AUTO) 11.6 % (13-45); MEAN CORPUSCULAR HEMOGLOBIN 30.3 pg (27.0-33.4); MEAN CORPUSCULAR HGB CONC 32.7 g/dL (32.0-36.0); MEAN CORPUSCULAR VOLUME 93 fl (80-97); MONOCYTES % (AUTO) 11.8 % (3-13); RED CELL DISTRIBUTION WIDTH 14.8 % (11.5-14.0); SEGMENTED NEUTROPHILS % (AUTO) 72.8 % (42-78); WHITE BLOOD COUNT 7.7 10^3/uL (4.0-10.5)
[2017-02-14 05:22] LABS: ANION GAP 10 (5-19); BLOOD UREA NITROGEN 36 mg/dL (7-20); CALCIUM 8.7 mg/dL (8.4-10.2); CARBON DIOXIDE 30 mmol/L (22-30); CHLORIDE 104 mmol/L (98-107); CREATININE RESULT 1.04 mg/dL (0.52-1.25); GLUCOSE 138 mg/dL (75-110); POTASSIUM 4.7 mmol/L (3.6-5.0); SODIUM 143.9 mmol/L (137-145)
[2017-02-14] MEDS: CLINDAMYCIN 600 MG/D5W RTU 50 ML IV SCH ×3 (05:40→23:14)
[2017-02-14] MEDS: LANSOPRAZOLE 30 MG TAB.RAP.DR PO SCH (05:40)
[2017-02-14] MEDS: LEVETIRACETAM 500 MG TABLET PO SCH ×2 (09:43→23:14)
[2017-02-14] MEDS: AMLODIPINE BESYLATE 5 MG TABLET PO SCH (09:43)
[2017-02-14] MEDS: SITAGLIPTIN PHOSPHATE 50 MG TABLET PO SCH (09:43)
[2017-02-14] MEDS: FUROSEMIDE INJ/PF 40 MG/4 ML SDV IV SCH (09:44)
[2017-02-14] MEDS: BUDESONIDE/FORMOTEROL 160-4.5 MCG 60 PUFF/6 GM MDI IH SCH ×2 (09:44→17:22)
[2017-02-14] MEDS: CEFTRIAXONE 1 GM/D5W RTU 1 GM/50 ML RTUPB IV SCH (09:46)
[2017-02-14] MEDS: APIXABAN 2.5 MG TABLET PO SCH ×2 (09:46→23:12)
--- NOTE | 2017-02-14 11:28 | PDOC PROGRESS REPORT ---
Subjective Progress Note for:: 02/14/17 Subjective:: Patient complains of left-sided pleuritic chest pain. Physical Exam Vital Signs: Temp Pulse Resp BP Pulse Ox 98.4 F 62 19 192/51 H 96 02/14/17 07:45 02/14/17 07:45 02/14/17 07:45 02/14/17 07:45 02/14/17 07:45 Intake & Output 02/13/17 02/14/17 02/15/17 06:59 06:59 06:59 Intake Total 250 904 Balance 250 904 General appearance: PRESENT: no acute distress Eye exam: PRESENT: conjunctiva pink. ABSENT: scleral icterus Mouth exam: PRESENT: moist, tongue midline Neck exam: ABSENT: JVD Respiratory exam: PRESENT: decreased breath sounds - Decreased breath sounds the left base., rhonchi - Left basilar rhonchi. ABSENT: rales, wheezes Cardiovascular exam: PRESENT: RRR. ABSENT: diastolic murmur, rubs, systolic murmur GI/Abdominal exam: PRESENT: normal bowel sounds, soft. ABSENT: distended, guarding, mass, organolmegaly, rebound, tenderness Extremities exam: ABSENT: calf tenderness, clubbing, pedal edema Neurological exam: PRESENT: alert, awake, oriented to person, oriented to place , oriented to time, oriented to situation, CN II-XII grossly intact. ABSENT: motor sensory deficit Psychiatric exam: PRESENT: appropriate affect Skin exam: PRESENT: dry, intact, warm. ABSENT: cyanosis, rash Results Laboratory Results: 02/14/17 04:37 02/14/17 04:37 02/14/17 02/14/17 04:37 04:37 WBC 7.7 RBC 3.60 L Hgb 10.9 L Hct 33.3 L MCV 93 MCH 30.3 MCHC 32.7 RDW 14.8 H Plt Count 122 L Seg Neutrophils % 72.8 Lymphocytes % 11.6 L Monocytes % 11.8 Eosinophils % 3.0 Basophils % 0.8 Absolute Neutrophils 5.6 Absolute Lymphocytes 0.9 Absolute Monocytes 0.9 Absolute Eosinophils 0.2 Absolute Basophils 0.1 Sodium 143.9 Potassium 4.7 Chloride 104 Carbon Dioxide 30 Anion Gap 10 BUN 36 H Creatinine 1.04 Est GFR ( Amer) > 60 Est GFR (Non-Af Amer) > 60 Glucose 138 H Calcium 8.7 Impressions: Chest X-Ray 02/08/17 23:04 IMPRESSION: Cardiomegaly and mild central vascular congestion. Moderate left pleural effusion. Bibasilar airspace opacities, may represent pneumonia or asymmetric edema. Radiographic followup to resolution recommended. Chest/Abdomen CTA 02/11/17 00:00 IMPRESSION: No evidence for pulmonary embolic disease. Moderate size bilateral pleural effusions are identified with a possible loculated component on the left. There is associated airspace consolidation most consistent with atelectatic changes although I cannot exclude pneumonic consolidations. Other findings as noted above Assessment & Plan - Diagnosis (1) Acute and chronic respiratory failure with hypoxia Is this a current diagnosis for this admission?: YesPlan: This most likely secondary to both pneumonia and congestive heart failure. Patient initially required BiPAP but is improving. (2) Acute on chronic systolic CHF (congestive heart failure) Is this a current diagnosis for this admission?: YesPlan: Patient is receiving IV Lasix. He still has left basilar rales. (3) Pneumonia Qualifiers: Pneumonia type: due to unspecified organism Laterality: unspecified laterality Lung location: unspecified part of lung Qualified Code(s) : J18.9 - Pneumonia, unspecified organism Is this a current diagnosis for this admission?: YesPlan: Continue with the Rocephin. Patient is complaining of left-sided pleuritic chest pain. Chest CTA was negative for pulmonary embolism. He does have an effusion. we'll consult pulmonary medicine (4) Atrial fibrillation Is this a current diagnosis for this admission?: YesPlan: Patient is rate controlled at this time. (5) CAD (coronary artery disease) Qualifiers: Coronary Disease-Associated Artery/Lesion type: [place] artery [place] vs. transplanted heart: [place] heart Associated angina: without angina Qualified Code(s): I25.10 - Atherosclerotic heart disease of [place] coronary artery without angina pectoris Is this a current diagnosis for this admission?: YesPlan: Complaints of pleuritic chest pain. This does not appear to be cardiac in nature. (6) DNR (do not resuscitate) Is this a current diagnosis for this admission?: Yes (7) Diabetes mellitus, type II Qualifiers: Diabetes mellitus complication status: with kidney complications Diabetes mellitus complication detail: with chronic kidney disease Diabetes mellitus medical terminologist insulin use: without medical terminologist use Chronic kidney disease stage: stage 3 (moderate) Qualified Code(s): E11.22 - Type 2 diabetes mellitus with diabetic chronic kidney disease; N18.1 - Chronic kidney disease, stage 1; Z79.4 - intermediate teacher (current) use of insulin Is this a current diagnosis for this admission?: YesPlan: Continue with sliding scale insulin. (8) Gastroesophageal reflux disease Qualifiers: Esophagitis presence: without esophagitis Qualified Code(s): K21.9 - Gastro-esophageal reflux disease without esophagitis Is this a current diagnosis for this admission?: YesPlan: Asymptomatic (9) Hypertension Qualifiers: Hypertension type: essential hypertension Qualified Code(s): I10 - Essential (primary) hypertension Is this a current diagnosis for this admission?: Yes - Time Time Spent with patient: 25-34 minutes - Inpatient Certification Medical Necessity: Need Close Monitoring Due to Risk of Patient Decompensation, Need for IV Antibiotics
[2017-02-14] MEDS: INSULIN LISPRO 100 UNIT/ML 3 ML VIAL SUBCUT PRN (16:48)
[2017-02-14] MEDS: ATORVASTATIN CALCIUM 40 MG TABLET PO SCH (23:13)
[2017-02-14] MEDS: SENNOSIDES/DOCUSATE 8.6-50 MG 1 EACH TABLET PO SCH (23:14)
[2017-02-15 05:55] LABS: ABSOLUTE BASOPHILS # (AUTO) 0.1 10^3/uL (0.0-0.2); ABSOLUTE EOSINOPHILS # (AUTO) 0.2 10^3/uL (0.0-0.6); ABSOLUTE LYMPHOCYTES (AUTO) 0.8 10^3/uL (0.5-4.7); ABSOLUTE MONOCYTES (AUTO) 0.9 10^3/uL (0.1-1.4); ABSOLUTE NEUT (AUTO) 5.3 10^3/uL (1.7-8.2); BASOPHILS % (AUTO) 0.8 % (0-2); EOSINOPHILS % (AUTO) 3.1 % (0-6); HEMATOCRIT 33.9 % (37.9-51.0); HEMOGLOBIN 11.1 g/dL (13.5-17.0); HGB HCT DIFFERENCE -0.6; LYMPHOCYTES % (AUTO) 10.9 % (13-45); MEAN CORPUSCULAR HEMOGLOBIN 30.3 pg (27.0-33.4); MEAN CORPUSCULAR HGB CONC 32.7 g/dL (32.0-36.0); MEAN CORPUSCULAR VOLUME 93 fl (80-97); MONOCYTES % (AUTO) 12.2 % (3-13); RED BLOOD COUNT 3.66 10^6/uL (4.35-5.55); RED CELL DISTRIBUTION WIDTH 15.1 % (11.5-14.0); WHITE BLOOD COUNT 7.3 10^3/uL (4.0-10.5)
[2017-02-15] MEDS: CLINDAMYCIN 600 MG/D5W RTU 50 ML IV SCH ×2 (05:55→16:00)
[2017-02-15] MEDS: OXYCODONE HCL IR 5 MG TABLET PO PRN (05:56)
[2017-02-15] MEDS: LANSOPRAZOLE 30 MG TAB.RAP.DR PO SCH (05:56)
[2017-02-15 06:02] LABS: ANION GAP 13 (5-19); BLOOD UREA NITROGEN 31 mg/dL (7-20); CALCIUM 8.7 mg/dL (8.4-10.2); CARBON DIOXIDE 30 mmol/L (22-30); CHLORIDE 104 mmol/L (98-107); CREATININE RESULT 0.99 mg/dL (0.52-1.25); GLUCOSE 132 mg/dL (75-110); POTASSIUM 4.5 mmol/L (3.6-5.0); SODIUM 146.7 mmol/L (137-145)
[2017-02-15] MEDS: CEFTRIAXONE 1 GM/D5W RTU 1 GM/50 ML RTUPB IV SCH (10:20)
[2017-02-15] MEDS: AMLODIPINE BESYLATE 5 MG TABLET PO SCH (10:21)
[2017-02-15] MEDS: SITAGLIPTIN PHOSPHATE 50 MG TABLET PO SCH (10:21)
[2017-02-15] MEDS: LEVETIRACETAM 500 MG TABLET PO SCH (10:21)
[2017-02-15] MEDS: BUDESONIDE/FORMOTEROL 160-4.5 MCG 60 PUFF/6 GM MDI IH SCH ×2 (10:21→18:00)
[2017-02-15] MEDS: FUROSEMIDE INJ/PF 40 MG/4 ML SDV IV SCH (10:23)
[2017-02-15] MEDS: APIXABAN 2.5 MG TABLET PO SCH (10:23)
[2017-02-15] MEDS: INSULIN LISPRO 100 UNIT/ML 3 ML VIAL SUBCUT PRN ×2 (10:44→17:58)
--- NOTE | 2017-02-15 11:08 | PDOC PROGRESS REPORT ---
Subjective Progress Note for:: 02/15/17 Subjective:: Patient was admitted initially by Dr. Portillo's service since he came from a shelter and had been his patient previously. The patient had switched primary care doctors and is followed by Dr. Germain now. We assumed care from Dr. Portillo's service for treatment of CHF and pneumonia. The patient has a left-sided pleural effusion and complaints of some left-sided pleuritic chest pain. Physical Exam Vital Signs: Temp Pulse Resp BP Pulse Ox 98.2 F 63 20 164/51 H 98 02/15/17 08:58 02/15/17 08:58 02/15/17 08:58 02/15/17 08:58 02/15/17 08:58 Intake & Output 02/14/17 02/15/17 02/16/17 06:59 06:59 06:59 Intake Total 904 710 Balance 904 710 General appearance: PRESENT: no acute distress Eye exam: PRESENT: conjunctiva pink. ABSENT: scleral icterus Mouth exam: PRESENT: moist, tongue midline Neck exam: ABSENT: carotid bruit, JVD, lymphadenopathy, thyromegaly Respiratory exam: PRESENT: decreased breath sounds - Decreased breath sounds left base, rales - Left basilar rails. ABSENT: rhonchi, wheezes Cardiovascular exam: PRESENT: RRR, systolic murmur. ABSENT: diastolic murmur, rubs GI/Abdominal exam: PRESENT: normal bowel sounds, soft. ABSENT: distended, guarding, mass, organolmegaly, rebound, tenderness Extremities exam: ABSENT: calf tenderness, clubbing, pedal edema Neurological exam: PRESENT: alert, awake, oriented to person, oriented to place , oriented to time, oriented to situation, CN II-XII grossly intact. ABSENT: motor sensory deficit Psychiatric exam: PRESENT: appropriate affect Skin exam: PRESENT: dry, intact, warm. ABSENT: cyanosis, rash Results Laboratory Results: 02/15/17 04:56 02/15/17 04:56 02/15/17 02/15/17 04:56 04:56 WBC 7.3 RBC 3.66 L Hgb 11.1 L Hct 33.9 L MCV 93 MCH 30.3 MCHC 32.7 RDW 15.1 H Plt Count 121 L Seg Neutrophils % 73.0 Lymphocytes % 10.9 L Monocytes % 12.2 Eosinophils % 3.1 Basophils % 0.8 Absolute Neutrophils 5.3 Absolute Lymphocytes 0.8 Absolute Monocytes 0.9 Absolute Eosinophils 0.2 Absolute Basophils 0.1 Sodium 146.7 H Potassium 4.5 Chloride 104 Carbon Dioxide 30 Anion Gap 13 BUN 31 H Creatinine 0.99 Est GFR ( Amer) > 60 Est GFR (Non-Af Amer) > 60 Glucose 132 H Calcium 8.7 Impressions: Chest X-Ray 02/08/17 23:04 IMPRESSION: Cardiomegaly and mild central vascular congestion. Moderate left pleural effusion. Bibasilar airspace opacities, may represent pneumonia or asymmetric edema. Radiographic followup to resolution recommended. Chest/Abdomen CTA 02/11/17 00:00 IMPRESSION: No evidence for pulmonary embolic disease. Moderate size bilateral pleural effusions are identified with a possible loculated component on the left. There is associated airspace consolidation most consistent with atelectatic changes although I cannot exclude pneumonic consolidations. Other findings as noted above Assessment & Plan - Diagnosis (1) Acute and chronic respiratory failure with hypoxia Is this a current diagnosis for this admission?: YesPlan: This most likely secondary to both pneumonia and congestive heart failure. Patient initially required BiPAP but is improving. The patient has a pulmonary consult pending. It's unclear whether or not we need to form a thoracentesis as he is improving but has not had resolution of the effusion on the left yet. (2) Acute on chronic systolic CHF (congestive heart failure) Is this a current diagnosis for this admission?: YesPlan: Patient is receiving IV Lasix. He still has left basilar rales. (3) Pneumonia Qualifiers: Pneumonia type: due to unspecified organism Laterality: unspecified laterality Lung location: unspecified part of lung Qualified Code(s) : J18.9 - Pneumonia, unspecified organism Is this a current diagnosis for this admission?: YesPlan: Continue with the Rocephin. Patient is complaining of left-sided pleuritic chest pain. Chest CTA was negative for pulmonary embolism. He does have an effusion. Pulmonary medicine has been consulted. (4) Atrial fibrillation Is this a current diagnosis for this admission?: YesPlan: Patient is rate controlled at this time. (5) CAD (coronary artery disease) Qualifiers: Coronary Disease-Associated Artery/Lesion type: [place] artery [place] vs. transplanted heart: [place] heart Associated angina: without angina Qualified Code(s): I25.10 - Atherosclerotic heart disease of [place] coronary artery without angina pectoris Is this a current diagnosis for this admission?: YesPlan: Complaints of pleuritic chest pain. This does not appear to be cardiac in nature. (6) DNR (do not resuscitate) Is this a current diagnosis for this admission?: Yes (7) Diabetes mellitus, type II Qualifiers: Diabetes mellitus complication status: with kidney complications Diabetes mellitus complication detail: with chronic kidney disease Diabetes mellitus care home insulin use: without vermin exterminator use Chronic kidney disease stage: stage 3 (moderate) Qualified Code(s): E11.22 - Type 2 diabetes mellitus with diabetic chronic kidney disease; N18.1 - Chronic kidney disease, stage 1; Z79.4 - exterminator termite (current) use of insulin Is this a current diagnosis for this admission?: YesPlan: Continue with sliding scale insulin. (8) Gastroesophageal reflux disease Qualifiers: Esophagitis presence: without esophagitis Qualified Code(s): K21.9 - Gastro-esophageal reflux disease without esophagitis Is this a current diagnosis for this admission?: YesPlan: Asymptomatic (9) Hypertension Qualifiers: Hypertension type: essential hypertension Qualified Code(s): I10 - Essential (primary) hypertension Is this a current diagnosis for this admission?: Yes - Time Time Spent with patient: 25-34 minutes - Inpatient Certification Medical Necessity: Need Close Monitoring Due to Risk of Patient Decompensation, Need for IV Antibiotics
--- NOTE | 2017-02-15 18:40 | CONSULTATION REPORT E ---
Consultation Report NAME: KRISTINE DE ANDA : 1930 AGE: 86Y DATE: 02/14/2017 427 A TO: DEVANTE ONEILL M.D. FROM: Requesting Physician HISTORY OF PRESENT ILLNESS: Patient is an 86-year-old male who came into the halfway because of increased shortness of breath associated with productive cough and purulent sputum production. Patient was treated for pneumonia with Levaquin in the halfway, but patient did not improve. Patient continued to have persistent hypoxemia that patient eventually had gone to the emergency room. PAST MEDICAL HISTORY: Patient has a past medical history of atrial fibrillation, congestive heart failure, coronary artery disease, myocardial infarction, hyperlipidemia, and hypertension. Patient had history of COPD and pneumonia. Endocrine: Has a history of diabetes mellitus type 2, GERD, arthritis, dementia and history of depression. Currently, patient is a DNR status. PAST SURGICAL HISTORY: Cardiac cath with stent placement x3, history of cholecystectomy, coronary artery bypass graft, 3-vessel and orthopedic surgery of the left hip x2. SOCIAL HISTORY: Patient lives with the family. Patient has never smoked. Denies any alcohol use or illicit drug use. FAMILY HISTORY: Unremarkable. MEDICATIONS AT HOME: Include: 1. Tylenol. 2. Norvasc. 3. Eliquis 2.5 mg b.i.d. 4. Atorvastatin. 5. Symbicort 160 mcg inhaler 1 puff twice a day. 6. Lasix 20 mg twice a day. 7. Insulin. 8. Nebulizer treatment. 9. Keppra. 10. Levaquin. 11. Linagliptin. 12. Omeprazole. 13. Prednisone tapering dose. ALLERGIES: No known drug allergies. HOSPITAL MEDICATIONS: Include: 1. Tylenol. 2. DuoNeb nebulizer treatment. 3. Norvasc 10 mg daily. 4. Eliquis 2.5 mg 1 tablet every 12 hours. 5. Lipitor. 6. Symbicort. 8. Clindamycin 600 mg q.8 hours. 9. Lasix 40 mg IV daily. 11. Humalog. 12. Levaquin. 13. Keppra. 14. Oxycodone. 15. Lisinopril. 16. Januvia. REVIEW OF SYSTEMS: CONSTITUTIONAL: No fever or chills. EYES: No blurry vision. EARS: Does not have any hearing changes and cannot hear very well. NOSE, MOUTH AND THROAT: No headache, mouth pain, sore throat, or vertigo. RESPIRATORY: Increased shortness of breath with purulent sputum production, treated for pneumonia. GASTROINTESTINAL: No nausea, vomiting or diarrhea. GENITOURINARY: No dysuria, hematuria, or passing of stone. NERVOUS SYSTEM: History of confusion, cognitive impairment, memory problems. PSYCHIATRIC: No anxiety, depression, or suicidal ideation. HEMATOLOGY: Easy bruising. No real signs of bleeding. PHYSICAL EXAMINATION: GENERAL: Patient appeared to be awake, sitting upright on bed, and not in acute respiratory distress. VITAL SIGNS: Afebrile with a temperature of 98.1, with a T-max was 98.4. Heart rate is 53, blood pressure is 173/48, respiratory rate is 16, saturation is 98% on 2 liters nasal cannula. EYES: No jaundice or pallor. EARS, NOSE, THROAT: No ear drainage noted. No nasal discharge. HEAD AND NECK: No scalp tenderness. Neck is supple. CHEST AND LUNGS: No wheezing. No rhonchi. No coarse crackles noted. CARDIOVASCULAR: S1 and S2 distinct. Normal rate and regular rhythm. ABDOMEN: Flabby. Positive bowel sounds. Soft, nondistended, nontender. EXTREMITIES: No joint swelling. No cellulitis. LABORATORY: CBC on admission on 02/08/17 showed white count of 15.8, hemoglobin 11.1, hematocrit 34.7, platelet count is 202. Today, the white count is going down to 7.7. Today, on 02/14/17, white count is 7.7. Hemoglobin is 10.9 and hematocrit 33.3, and platelet count is 122. No bands noted. Chemistry today showed sodium 153.9, potassium 4.7, chloride 104, CO2 of 13, BUN 36, creatinine 1.04, glucose 128, calcium is 8.7. Chest CT scan done on 02/11/17 showed bilateral bibasilar infiltrate and bilateral pleural effusion, loculated on the left side. ASSESSMENT: 1. Loculated pleural effusion at left side associated with pleuritic chest pain and bibasilar pneumonia, possibly infected pleural space. Currently, appeared to be improving. White count is normal and no bandemia. Patient is afebrile. 2. Pleural effusion, right side and free-flowing. 3. Pneumonia, bibasilar pneumonia. 4. Chronic obstructive pulmonary disease, currently stable, not associated with exacerbation. 5. History of atrial fibrillation, on Eliquis 2.5 mg p.o. b.i.d. every 12 hours. PLAN/RECOMMENDATIONS: Need to discuss with family for possible ultrasound-guided thoracentesis involving the left lung. We have to hold the Eliquis for more than 48 hours to reduce the chance of bleeding into the thoracic space. We will refer patient to Interventional Radiology for ultrasound-guided thoracentesis and pigtail placement. We will send pleural fluid for pleural fluid pH and cell count and differential, glucose,protein, and cultures and smears; and for cytology. If you have any questions, please feel free to call me. DICTATING PHYSICIAN: DEVANTE ONEILL MD,NILA,MPH [id number] PHY#: [id number] ID: [id number] JOB#: [id number] ACCT: [id number] cc:DEVANTE ONEILL M.D. > MTDD
[2017-02-16] MEDS: CLINDAMYCIN 600 MG/D5W RTU 50 ML IV SCH ×2 (00:02→05:12)
[2017-02-16] MEDS: SENNOSIDES/DOCUSATE 8.6-50 MG 1 EACH TABLET PO SCH ×2 (00:03→21:25)
[2017-02-16] MEDS: ATORVASTATIN CALCIUM 40 MG TABLET PO SCH ×2 (00:03→21:26)
[2017-02-16] MEDS: LEVETIRACETAM 500 MG TABLET PO SCH ×3 (00:03→21:25)
[2017-02-16 04:51] LABS: ABSOLUTE EOSINOPHILS # (AUTO) 0.2 10^3/uL (0.0-0.6); ABSOLUTE LYMPHOCYTES (AUTO) 0.8 10^3/uL (0.5-4.7); ABSOLUTE MONOCYTES (AUTO) 0.9 10^3/uL (0.1-1.4); ABSOLUTE NEUT (AUTO) 4.6 10^3/uL (1.7-8.2); BASOPHILS % (AUTO) 0.6 % (0-2); EOSINOPHILS % (AUTO) 3.1 % (0-6); HEMATOCRIT 31.7 % (37.9-51.0); HEMOGLOBIN 10.3 g/dL (13.5-17.0); HGB HCT DIFFERENCE -0.8; LYMPHOCYTES % (AUTO) 11.7 % (13-45); MEAN CORPUSCULAR HEMOGLOBIN 30.3 pg (27.0-33.4); MEAN CORPUSCULAR HGB CONC 32.4 g/dL (32.0-36.0); MEAN CORPUSCULAR VOLUME 93 fl (80-97); MONOCYTES % (AUTO) 13.3 % (3-13); SEGMENTED NEUTROPHILS % (AUTO) 71.3 % (42-78); WHITE BLOOD COUNT 6.5 10^3/uL (4.0-10.5)
[2017-02-16 05:11] LABS: ANION GAP 7 (5-19); BLOOD UREA NITROGEN 27 mg/dL (7-20); CALCIUM 8.5 mg/dL (8.4-10.2); CARBON DIOXIDE 33 mmol/L (22-30); CHLORIDE 105 mmol/L (98-107); CREATININE RESULT 0.93 mg/dL (0.52-1.25); GLUCOSE 152 mg/dL (75-110); POTASSIUM 4.3 mmol/L (3.6-5.0); SODIUM 144.6 mmol/L (137-145)
[2017-02-16] MEDS: OXYCODONE HCL IR 5 MG TABLET PO PRN ×3 (05:11→21:26)
[2017-02-16] MEDS: LANSOPRAZOLE 30 MG TAB.RAP.DR PO SCH (05:12)
[2017-02-16] MEDS: SITAGLIPTIN PHOSPHATE 50 MG TABLET PO SCH (09:47)
[2017-02-16] MEDS: FUROSEMIDE INJ/PF 40 MG/4 ML SDV IV SCH ×2 (09:47→21:26)
[2017-02-16] MEDS: INSULIN LISPRO 100 UNIT/ML 3 ML VIAL SUBCUT PRN ×2 (09:49→21:24)
[2017-02-16] MEDS: AMLODIPINE BESYLATE 5 MG TABLET PO SCH ×2 (09:50→21:25)
[2017-02-16] MEDS: BUDESONIDE/FORMOTEROL 160-4.5 MCG 60 PUFF/6 GM MDI IH SCH ×2 (09:50→18:06)
[2017-02-16] MEDS ORDERED: HYDRALAZINE HCL INJ/PF 20 MG/1 ML SDV IV PRN (11:55)
--- NOTE | 2017-02-16 11:56 | PDOC PROGRESS REPORT ---
Subjective Progress Note for:: 02/16/17 Subjective:: Patient has continued shortness of breath but states this is better than he felt on admission. He complains of continued swelling in his legs. He denies fever, chills, headache, chest pain, abdominal pain, nausea, vomiting. Physical Exam Vital Signs: Temp Pulse Resp BP Pulse Ox 98.2 F 58 L 18 179/47 H 98 02/16/17 07:51 02/16/17 07:51 02/16/17 07:51 02/16/17 07:51 02/16/17 07:51 Intake & Output 02/15/17 02/16/17 02/17/17 06:59 06:59 06:59 Intake Total 710 967 Output Total 400 Balance 710 567 GENERAL: No acute distress, wearing nasal cannula oxygen HEENT: Conjunctiva clear, nonicteric, moist mucous membranes, no JVD, midline trachea RESPIRATORY: Clear to auscultation bilaterally, no wheezes, scattered bilateral rhonchi CARDIAC: Irregular ABDOMEN: Soft, nondistended, nontender, positive bowel sounds, no rebound, no guarding EXTREMETIES: 2+ bilateral lower extremity edema NEUROLOGIC: Alert, oriented to person/place/time, CN's grossly intact, no focal deficits SKIN: No rash, wounds PSYCH: Normal mood, normal affect Results Laboratory Results: 02/16/17 04:13 02/16/17 04:13 02/16/17 02/16/17 04:13 04:13 WBC 6.5 RBC 3.40 L Hgb 10.3 L Hct 31.7 L MCV 93 MCH 30.3 MCHC 32.4 RDW 15.0 H Plt Count 100 L Seg Neutrophils % 71.3 Lymphocytes % 11.7 L Monocytes % 13.3 H Eosinophils % 3.1 Basophils % 0.6 Absolute Neutrophils 4.6 Absolute Lymphocytes 0.8 Absolute Monocytes 0.9 Absolute Eosinophils 0.2 Absolute Basophils 0.0 Sodium 144.6 Potassium 4.3 Chloride 105 Carbon Dioxide 33 H Anion Gap 7 BUN 27 H Creatinine 0.93 Est GFR ( Amer) > 60 Est GFR (Non-Af Amer) > 60 Glucose 152 H Calcium 8.5 Impressions: Chest X-Ray 02/08/17 23:04 IMPRESSION: Cardiomegaly and mild central vascular congestion. Moderate left pleural effusion. Bibasilar airspace opacities, may represent pneumonia or asymmetric edema. Radiographic followup to resolution recommended. Chest/Abdomen CTA 02/11/17 00:00 IMPRESSION: No evidence for pulmonary embolic disease. Moderate size bilateral pleural effusions are identified with a possible loculated component on the left. There is associated airspace consolidation most consistent with atelectatic changes although I cannot exclude pneumonic consolidations. Other findings as noted above Assessment & Plan - Diagnosis (1) Acute and chronic respiratory failure with hypoxia Is this a current diagnosis for this admission?: YesPlan: Patient states that he chronically uses nocturnal oxygen. Continue oxygen supplementation. (2) Pneumonia Qualifiers: Pneumonia type: due to unspecified organism Laterality: right Lung location: upper lobe of lung Qualified Code(s): J18.1 - Lobar pneumonia, unspecified organism Is this a current diagnosis for this admission?: YesPlan: Likely bacterial. Patient is afebrile. White blood count is now normal. Discontinue IV clindamycin. Start oral doxycycline. (3) Bilateral pleural effusion Is this a current diagnosis for this admission?: YesPlan: Likely related to decompensated CHF as well as pneumonia. Repeat chest x-ray in the morning. (4) Acute diastolic (congestive) heart failure Is this a current diagnosis for this admission?: YesPlan: Patient has acutely decompensated congestive heart failure secondary to diastolic dysfunction as well as valvular heart disease. He has not achieved a good negative fluid balance since hospitalization. Increase Lasix to 40 mg IV every 12 hours. He is currently not on evidence based beta art and I will not start this medication secondary to resting bradycardia. (5) Anticoagulant long-term use Is this a current diagnosis for this admission?: Yes (6) Atrial fibrillation Is this a current diagnosis for this admission?: YesPlan: Heart rate in the slightly bradycardic range without medication. Tim was on hold secondary to thrombocytopenia. (7) CAD (coronary artery disease) Qualifiers: Coronary Disease-Associated Artery/Lesion type: [place] artery [place] vs. transplanted heart: [place] heart Associated angina: without angina Qualified Code(s): I25.10 - Atherosclerotic heart disease of [place] coronary artery without angina pectoris Is this a current diagnosis for this admission?: YesPlan: Continue Lipitor. Patient is not on beta art secondary to resting bradycardia. He is not on aspirin therapy secondary to anticoagulation with Ellik was. (8) Diabetes mellitus, type II Qualifiers: Diabetes mellitus complication status: with kidney complications Diabetes mellitus complication detail: with chronic kidney disease Diabetes mellitus long term care administrator insulin use: without long term care administrator use Chronic kidney disease stage: stage 3 (moderate) Qualified Code(s): E11.22 - Type 2 diabetes mellitus with diabetic chronic kidney disease; N18.1 - Chronic kidney disease, stage 1; Z79.4 - care home (current) use of insulin Is this a current diagnosis for this admission?: YesPlan: Change to consistent carbohydrate diet. Sliding scale insulin. (9) Thrombocytopenia Is this a current diagnosis for this admission?: YesPlan: Possibly related to IV antibiotic as this started up on initiation of IV antibiotic. Discontinue IV clindamycin. Patient's chronic Eliquis is on hold. (10) Hypertension Qualifiers: Hypertension type: essential hypertension Qualified Code(s): I10 - Essential (primary) hypertension Is this a current diagnosis for this admission?: YesPlan: Uncontrolled this time. Increase Norvasc to 5 mg twice daily. When necessary IV hydralazine. (11) DNR (do not resuscitate) Is this a current diagnosis for this admission?: Yes - Time Time Spent with patient: 35 or more minutes
--- NOTE | 2017-02-16 14:53 | PROGRESS NOTE E ---
Progress Note NAME: KRISTINE DE ANDA : 1930 AGE: 86Y DATE: 02/16/2017 ROOM: 427 SUBJECTIVE: The patient is an 86-year-old male who came in with pneumonia and pleural effusion bilateral with loculated pleural effusion left side and pleuritic chest pain left side. The patient scheduled for possible thoracentesis and pigtail catheter left chest tomorrow morning, awaiting radiology consult. There was no fever over the last few days, no increased coughing or purulent sputum production. The patient continues to have some pleuritic chest pain involving the left chest relieved with narcotic. He denies any hemoptysis and denies any worsening dyspnea. Leukocytosis appeared improved. Eliquis was held yesterday. OBJECTIVE: GENERAL: Patient is awake, alert and appeared to be oriented and not in acute respiratory distress. VITAL SIGNS: Stable. EYES: No jaundice or pallor. EARS/NOSE/MOUTH/THROAT: No ear drainage noted. No nasal discharge. HEAD/NECK: No neck swelling. Neck supple. CHEST/LUNGS: No wheezing. No rhonchi. No coarse crackles. CARDIOVASCULAR: S1, S2 distinct. Normal rate, regular rhythm. ABDOMEN: Flabby. Positive bowel sounds. Soft, nondistended. EXTREMITIES: No joint swelling, no cellulitis. ASSESSMENT/PLAN: 1. PLEURAL EFFUSION, LEFT SIDE. Will require ultrasound guided thoracentesis or possible pigtail catheter placement. If the pleural fluid drainage is purulent or empyematous, may consider referring patient to a tertiary care center for possible pleuroscopy, and pleural decortication. 2. Continue IV antibiotics. If you have any questions, please feel free to call me. DICTATING PHYSICIAN: DEVANTE ONEILL MD,NILA,MPH [id number] PHY#: [id number] ID: [id number] JOB#: [id number] ACCT: [id number] cc: > MTDD
[2017-02-16] MEDS: DOXYCYCLINE HYCLATE 100 MG TABLET PO SCH (21:26)
[2017-02-17] MEDS: LANSOPRAZOLE 30 MG TAB.RAP.DR PO SCH (06:28)
[2017-02-17 06:29] LABS: ABSOLUTE BASOPHILS # (AUTO) 0.1 10^3/uL (0.0-0.2); ABSOLUTE EOSINOPHILS # (AUTO) 0.2 10^3/uL (0.0-0.6); ABSOLUTE MONOCYTES (AUTO) 0.9 10^3/uL (0.1-1.4); ABSOLUTE NEUT (AUTO) 4.9 10^3/uL (1.7-8.2); BASOPHILS % (AUTO) 0.8 % (0-2); EOSINOPHILS % (AUTO) 3.1 % (0-6); HEMATOCRIT 32.3 % (37.9-51.0); HEMOGLOBIN 10.8 g/dL (13.5-17.0); HGB HCT DIFFERENCE 0.1; LYMPHOCYTES % (AUTO) 14.1 % (13-45); MEAN CORPUSCULAR HEMOGLOBIN 30.3 pg (27.0-33.4); MEAN CORPUSCULAR HGB CONC 33.4 g/dL (32.0-36.0); MEAN CORPUSCULAR VOLUME 91 fl (80-97); MONOCYTES % (AUTO) 12.2 % (3-13); RED BLOOD COUNT 3.56 10^6/uL (4.35-5.55); RED CELL DISTRIBUTION WIDTH 14.7 % (11.5-14.0); SEGMENTED NEUTROPHILS % (AUTO) 69.8 % (42-78)
[2017-02-17] MEDS: OXYCODONE HCL IR 5 MG TABLET PO PRN ×2 (06:29→15:11)
[2017-02-17 06:50] LABS: ALANINE AMINOTRANSFERASE 40 U/L (21-72); ALBUMIN 2.9 g/dL (3.5-5.0); ALKALINE PHOSPHATASE 109 U/L (38-126); ANION GAP 8 (5-19); ASPARTATE AMINO TRANSFERASE 27 U/L (17-59); BILIRUBIN,DIRECT 0.3 mg/dL (0.0-0.4); BILIRUBIN,TOTAL 0.5 mg/dL (0.2-1.3); BLOOD UREA NITROGEN 27 mg/dL (7-20); CALCIUM 8.7 mg/dL (8.4-10.2); CARBON DIOXIDE 32 mmol/L (22-30); CHLORIDE 104 mmol/L (98-107); CREATININE RESULT 1.05 mg/dL (0.52-1.25); GLUCOSE 153 mg/dL (75-110); LDH 463 U/L (313-618); MAGNESIUM 2.5 mg/dL (1.6-2.3); POTASSIUM 4.6 mmol/L (3.6-5.0); SODIUM 144.4 mmol/L (137-145); TOTAL PROTEIN 5.6 g/dL (6.3-8.2)
--- NOTE | 2017-02-17 13:57 | PDOC PROGRESS REPORT ---
Subjective Progress Note for:: 02/17/17 Subjective:: Patient has continued shortness of breath but states this is better than he felt on admission. He complains of continued swelling in his legs. He denies fever, chills, headache, chest pain, abdominal pain, nausea, vomiting. Physical Exam Vital Signs: Temp Pulse Resp BP Pulse Ox 98.2 F 56 L 19 157/48 H 96 02/17/17 04:15 02/17/17 04:15 02/17/17 04:15 02/17/17 04:15 02/17/17 04:15 Intake & Output 02/16/17 02/17/17 02/18/17 06:59 06:59 06:59 Intake Total 967 1150 Output Total 400 900 Balance 567 250 GENERAL: No acute distress, wearing nasal cannula oxygen HEENT: Conjunctiva clear, nonicteric, moist mucous membranes, no JVD, midline trachea RESPIRATORY: Clear to auscultation bilaterally, no wheezes, scattered bilateral rhonchi CARDIAC: Irregular ABDOMEN: Soft, nondistended, nontender, positive bowel sounds, no rebound, no guarding EXTREMETIES: 2+ bilateral lower extremity edema NEUROLOGIC: Alert, oriented to person/place/time, CN's grossly intact, no focal deficits SKIN: No rash, wounds PSYCH: Normal mood, normal affect Results Laboratory Results: 02/17/17 05:24 02/17/17 06:14 02/17/17 02/17/17 02/17/17 05:24 06:14 10:32 WBC 7.0 RBC 3.56 L Hgb 10.8 L Hct 32.3 L MCV 91 MCH 30.3 MCHC 33.4 RDW 14.7 H Plt Count 102 L Seg Neutrophils % 69.8 Lymphocytes % 14.1 Monocytes % 12.2 Eosinophils % 3.1 Basophils % 0.8 Absolute Neutrophils 4.9 Absolute Lymphocytes 1.0 Absolute Monocytes 0.9 Absolute Eosinophils 0.2 Absolute Basophils 0.1 ABG pH Cancelled Sodium 144.4 Potassium 4.6 Chloride 104 Carbon Dioxide 32 H Anion Gap 8 BUN 27 H Creatinine 1.05 Est GFR ( Amer) > 60 Est GFR (Non-Af Amer) > 60 Glucose 153 H Calcium 8.7 Magnesium 2.5 H Total Bilirubin 0.5 AST 27 ALT 40 Alkaline Phosphatase 109 Total Protein 5.6 L Albumin 2.9 L 02/17/17 05:24 NT-Pro-B Natriuret Pep 3950 H Impressions: Chest/Abdomen CTA 02/11/17 00:00 IMPRESSION: No evidence for pulmonary embolic disease. Moderate size bilateral pleural effusions are identified with a possible loculated component on the left. There is associated airspace consolidation most consistent with atelectatic changes although I cannot exclude pneumonic consolidations. Other findings as noted above Chest X-Ray 02/17/17 06:00 IMPRESSION: CARDIOMEGALY AND VASCULAR CONGESTION. MODERATE LEFT PLEURAL EFFUSION AND BASILAR DENSITIES, ATELECTASIS VERSUS PNEUMONIA. OVERALL IMPROVED AERATION COMPARED TO THE PREVIOUS STUDY. Assessment & Plan - Diagnosis (1) Acute and chronic respiratory failure with hypoxia Is this a current diagnosis for this admission?: YesPlan: Patient states that he chronically uses nocturnal oxygen. Continue oxygen supplementation. (2) Pneumonia Qualifiers: Pneumonia type: due to unspecified organism Laterality: right Lung location: upper lobe of lung Qualified Code(s): J18.1 - Lobar pneumonia, unspecified organism Is this a current diagnosis for this admission?: YesPlan: Likely bacterial. Patient is afebrile. White blood count is now normal. Continue oral doxycycline until 02/22/2017. (3) Bilateral pleural effusion Is this a current diagnosis for this admission?: YesPlan: Patient is being followed by Dr. Isbell of pulmonary medicine. Patient had left thoracentesis today. Fluid analysis pending at this time. I think patient 's decompensated CHF is contributing. Pneumonia may also be contacting. (4) Acute diastolic (congestive) heart failure Is this a current diagnosis for this admission?: YesPlan: Patient has acutely decompensated congestive heart failure secondary to diastolic dysfunction as well as valvular heart disease. Continue Lasix 40 mg IV every 12 hours. He is currently not on evidence based beta art and I will not start this medication secondary to resting bradycardia. (5) Anticoagulant long-term use Is this a current diagnosis for this admission?: YesPlan: Eliquis was held for thoracentesis. I will restart this tonight. (6) Atrial fibrillation Is this a current diagnosis for this admission?: YesPlan: Heart rate in the slightly bradycardic range without medication. Resume Eliquis. (7) CAD (coronary artery disease) Qualifiers: Coronary Disease-Associated Artery/Lesion type: [place] artery [place] vs. transplanted heart: [place] heart Associated angina: without angina Qualified Code(s): I25.10 - Atherosclerotic heart disease of [place] coronary artery without angina pectoris Is this a current diagnosis for this admission?: YesPlan: Continue Lipitor. Patient is not on beta art secondary to resting bradycardia. He is not on aspirin therapy secondary to anticoagulation with Eliquis. 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 Sliding scale insulin. (9) Thrombocytopenia Is this a current diagnosis for this admission?: YesPlan: Possibly related to IV antibiotic as this started up on initiation of IV antibiotic. Discontinued IV clindamycin on 02/16/2017. I will restart Eliquis. (10) Hypertension Qualifiers: Hypertension type: essential hypertension Qualified Code(s): I10 - Essential (primary) hypertension Is this a current diagnosis for this admission?: YesPlan: Increased Norvasc to 5 mg twice daily on 02/17/2017. When necessary IV hydralazine. (11) DNR (do not resuscitate) Is this a current diagnosis for this admission?: Yes - Time Time Spent with patient: 35 or more minutes
[2017-02-17 14:26] LABS: FLUID TYPE PLEURAL
[2017-02-17 14:27] LABS: FLUID APPEARANCE HAZY; FLUID RBC AVERAGE 133.5; FLUID RBC DILUENT USED SALINE; FLUID RBC DILUTION FACTOR 5; FLUID RBC SIDE 1 138; FLUID RBC SIDE 2 129; TOTAL RBC SQUARES COUNTED FLD 75
[2017-02-17] MEDS: LEVETIRACETAM 500 MG TABLET PO SCH ×2 (15:03→21:54)
[2017-02-17] MEDS: BUDESONIDE/FORMOTEROL 160-4.5 MCG 60 PUFF/6 GM MDI IH SCH ×2 (15:03→18:31)
[2017-02-17] MEDS: DOXYCYCLINE HYCLATE 100 MG TABLET PO SCH ×2 (15:03→21:54)
[2017-02-17] MEDS: SITAGLIPTIN PHOSPHATE 50 MG TABLET PO SCH (15:04)
[2017-02-17] MEDS: AMLODIPINE BESYLATE 5 MG TABLET PO SCH ×2 (15:05→21:53)
[2017-02-17] MEDS: FUROSEMIDE INJ/PF 40 MG/4 ML SDV IV SCH ×2 (15:05→21:54)
[2017-02-17] MEDS: ATORVASTATIN CALCIUM 40 MG TABLET PO SCH (21:53)
[2017-02-17] MEDS: SENNOSIDES/DOCUSATE 8.6-50 MG 1 EACH TABLET PO SCH (21:53)
[2017-02-18] MEDS: OXYCODONE HCL IR 5 MG TABLET PO PRN ×3 (01:16→17:10)
[2017-02-18] MEDS: LANSOPRAZOLE 30 MG TAB.RAP.DR PO SCH (05:19)
[2017-02-18 05:39] LABS: ABSOLUTE BASOPHILS # (AUTO) 0.1 10^3/uL (0.0-0.2); ABSOLUTE EOSINOPHILS # (AUTO) 0.2 10^3/uL (0.0-0.6); ABSOLUTE LYMPHOCYTES (AUTO) 1.1 10^3/uL (0.5-4.7); ABSOLUTE MONOCYTES (AUTO) 0.7 10^3/uL (0.1-1.4); BASOPHILS % (AUTO) 1.1 % (0-2); EOSINOPHILS % (AUTO) 2.8 % (0-6); HEMOGLOBIN 10.7 g/dL (13.5-17.0); HGB HCT DIFFERENCE 0.1; LYMPHOCYTES % (AUTO) 15.1 % (13-45); MEAN CORPUSCULAR HEMOGLOBIN 30.7 pg (27.0-33.4); MEAN CORPUSCULAR HGB CONC 33.3 g/dL (32.0-36.0); MEAN CORPUSCULAR VOLUME 92 fl (80-97); MONOCYTES % (AUTO) 10.1 % (3-13); RED BLOOD COUNT 3.47 10^6/uL (4.35-5.55); RED CELL DISTRIBUTION WIDTH 14.9 % (11.5-14.0); SEGMENTED NEUTROPHILS % (AUTO) 70.9 % (42-78); WHITE BLOOD COUNT 7.1 10^3/uL (4.0-10.5)
[2017-02-18 06:00] LABS: ANION GAP 6 (5-19); BLOOD UREA NITROGEN 30 mg/dL (7-20); CALCIUM 8.6 mg/dL (8.4-10.2); CARBON DIOXIDE 35 mmol/L (22-30); CHLORIDE 103 mmol/L (98-107); CREATININE RESULT 1.08 mg/dL (0.52-1.25); GLUCOSE 151 mg/dL (75-110); MAGNESIUM 2.5 mg/dL (1.6-2.3); POTASSIUM 4.5 mmol/L (3.6-5.0); SODIUM 144.2 mmol/L (137-145)
--- NOTE | 2017-02-18 07:56 | PROGRESS NOTE E ---
Progress Note NAME: KRISTINE DE ANDA : 1930 AGE: 86Y DATE: 02/17/2017 ROOM: 427 SUBJECTIVE: The patient is an 86-year-old male who cam in with pneumonia bilateral and pleural effusion bilateral, more on the right than the left side, and loculated pleural effusion left side. The patient underwent ultrasound guided thoracentesis today, left chest, draining about 850 mL clear yellow fluid. The patient claims that he his breathing is a lot better after the thoracentesis. There was no fever overnight. No signs of bleeding. The subsequent chest x-ray postoperatively showed absence of pneumothorax. No nausea, vomiting, diarrhea. No chest pain. OBJECTIVE: GENERAL: The patient appeared to be alert, coherent, oriented x3. VITAL SIGNS: Temperature of 98.4 with a T-max of 98.4, heart rate of 62, blood pressure is 153/49, respirations are 22, saturation 93% on 2 L. EYES: No conjunctival pallor. EARS, NOSE, AND THROAT: No ear drainage. No nasal discharge. HEAD AND NECK: No scalp swelling or tenderness. Neck supple. CHEST AND LUNGS: No wheezing, no rhonchi, no coarse crackles. CARDIOVASCULAR: S1 and S2 is distant. Normal heart rate and rhythm. ABDOMEN: Flabby, positive bowel sounds, soft, nondistended, nontender. EXTREMITIES: No cellulitis, no joint swelling. LABORATORY DATA: CBC done today shows a white count of 7, hemoglobin of 10.8, hematocrit 32.3, and platelet count 102. INR this morning was 0.96, PT is 13. Chemistry today shows sodium 144, potassium 4.6, chloride 104, CO2 is 32, BUN 37, creatinine 1.05, glucose 153, calcium is 8.7, magnesium is 2.5, SGOT is 37, ALT is 40, alkaline phos 109. LDH is 463. NT-BNP is 3950. Total protein is 5.6 and albumin is 2.9. Pleural fluid analysis showed pleural fluid appeared to be yellow and hazy and liquid viscosity. Pleural fluid WBC 664 and RBC 2125 which can be traumatic. Pleural fluid neutrophils 16%, fluid lymphocytes 76%, monocytes 8%. Glucose and total protein in the pleural fluid are pending. ASSESSMENT: 1. PLEURAL EFFUSION, LOCULATED LEFT SIDE. Appeared to be transudative fluid. It does not appear to be infected because the fluid WBC is low, but the pleural fluid glucose, total protein, and LDH are still pending. This pleural effusion is mostly uncomplicated parapneumonic and partly due to CHF on Lasix. 2. PNEUMONIA WITH BILATERAL PARAPNEUMONIC EFFUSION. PLAN/RECOMMENDATION: 1. Continue antibiotic. 2. We will wait for the pending pleural fluid response. 3. The patient may not need the indwelling pleural catheter or pleuroscopy at this time. 4. We will continue to follow the patient. DICTATING PHYSICIAN: DEVANTE ONEILL MD,NILA,MPH [id number] PHY#: [id number] ID: [id number] JOB#: [id number] ACCT: [id number] cc: > MTDD
[2017-02-18] MEDS: BUDESONIDE/FORMOTEROL 160-4.5 MCG 60 PUFF/6 GM MDI IH SCH ×2 (09:49→17:12)
[2017-02-18] MEDS: AMLODIPINE BESYLATE 5 MG TABLET PO SCH ×2 (09:49→22:25)
[2017-02-18] MEDS: SITAGLIPTIN PHOSPHATE 50 MG TABLET PO SCH (09:49)
[2017-02-18] MEDS: LEVETIRACETAM 500 MG TABLET PO SCH ×2 (09:49→22:26)
[2017-02-18] MEDS: FUROSEMIDE INJ/PF 40 MG/4 ML SDV IV SCH ×2 (09:52→22:26)
[2017-02-18] MEDS: DOXYCYCLINE HYCLATE 100 MG TABLET PO SCH ×2 (11:02→22:26)
[2017-02-18] MEDS: APIXABAN 2.5 MG TABLET PO SCH ×2 (11:04→22:25)
--- NOTE | 2017-02-18 13:16 | PDOC PROGRESS REPORT ---
Subjective Progress Note for:: 02/18/17 Subjective:: Patient denies shortness of breath. He complains of continued swelling in his legs. He denies fever, chills, headache, chest pain, abdominal pain, nausea, vomiting. Physical Exam Vital Signs: Temp Pulse Resp BP Pulse Ox 97.5 F 53 L 17 169/55 H 96 02/18/17 11:16 02/18/17 11:16 02/18/17 11:16 02/18/17 11:16 02/18/17 11:16 Intake & Output 02/17/17 02/18/17 02/19/17 06:59 06:59 06:59 Intake Total 1150 270 Output Total 900 Balance 250 270 GENERAL: No acute distress, wearing nasal cannula oxygen HEENT: Conjunctiva clear, nonicteric, moist mucous membranes, no JVD, midline trachea RESPIRATORY: Clear to auscultation bilaterally CARDIAC: Irregular ABDOMEN: Soft, nondistended, nontender, positive bowel sounds, no rebound, no guarding EXTREMETIES: Trace bilateral lower extremity edema NEUROLOGIC: Alert, oriented to person/place/time, CN's grossly intact, no focal deficits SKIN: No rash, wounds PSYCH: Normal mood, normal affect Results Laboratory Results: 02/18/17 05:25 02/18/17 05:25 02/17/17 02/18/17 02/18/17 10:32 05:25 05:25 WBC 7.1 RBC 3.47 L Hgb 10.7 L Hct 32.0 L MCV 92 MCH 30.7 MCHC 33.3 RDW 14.9 H Plt Count 106 L Seg Neutrophils % 70.9 Lymphocytes % 15.1 Monocytes % 10.1 Eosinophils % 2.8 Basophils % 1.1 Absolute Neutrophils 5.0 Absolute Lymphocytes 1.1 Absolute Monocytes 0.7 Absolute Eosinophils 0.2 Absolute Basophils 0.1 Sodium 144.2 Potassium 4.5 Chloride 103 Carbon Dioxide 35 H Anion Gap 6 BUN 30 H Creatinine 1.08 Est GFR ( Amer) > 60 Est GFR (Non-Af Amer) > 60 Glucose 151 H Calcium 8.6 Magnesium 2.5 H Fluid Type PLEURAL Fluid Source LUNG Fluid Color YELLOW Fluid Appearance HAZY Fluid Viscosity LIQUID Fluid WBC 664 Fluid RBC 2225 02/17/17 02/18/17 05:24 05:25 NT-Pro-B Natriuret Pep 3950 H 3710 H Impressions: Chest/Abdomen CTA 02/11/17 00:00 IMPRESSION: No evidence for pulmonary embolic disease. Moderate size bilateral pleural effusions are identified with a possible loculated component on the left. There is associated airspace consolidation most consistent with atelectatic changes although I cannot exclude pneumonic consolidations. Other findings as noted above Thoracentesis Ultrasound 02/17/17 00:00 IMPRESSION: SUCCESSFUL LEFT DIAGNOSTIC AND THERAPEUTIC THORACENTESIS USING ULTRASOUND GUIDANCE. Chest X-Ray 02/17/17 06:00 IMPRESSION: CARDIOMEGALY AND VASCULAR CONGESTION. MODERATE LEFT PLEURAL EFFUSION AND BASILAR DENSITIES, ATELECTASIS VERSUS PNEUMONIA. OVERALL IMPROVED AERATION COMPARED TO THE PREVIOUS STUDY. Assessment & Plan - Diagnosis (1) Acute and chronic respiratory failure with hypoxia Is this a current diagnosis for this admission?: YesPlan: Patient states that he chronically uses nocturnal oxygen. Continue oxygen supplementation. (2) Pneumonia Qualifiers: Pneumonia type: due to unspecified organism Laterality: right Lung location: upper lobe of lung Qualified Code(s): J18.1 - Lobar pneumonia, unspecified organism Is this a current diagnosis for this admission?: YesPlan: Likely bacterial. Patient is afebrile. White blood count is now normal. Continue oral doxycycline until 02/22/2017. (3) Bilateral pleural effusion Is this a current diagnosis for this admission?: YesPlan: Patient is being followed by Dr. Isbell of pulmonary medicine. Patient had left thoracentesis today. Fluid analysis pending at this time. I think patient 's decompensated CHF is contributing. Pneumonia may also be contacting. (4) Acute diastolic (congestive) heart failure Is this a current diagnosis for this admission?: YesPlan: Patient has acutely decompensated congestive heart failure secondary to diastolic dysfunction as well as valvular heart disease. Continue Lasix 40 mg IV every 12 hours. He is currently not on evidence based beta art and I will not start this medication secondary to resting bradycardia. (5) Anticoagulant long-term use Is this a current diagnosis for this admission?: YesPlan: Eliquis. (6) Atrial fibrillation Is this a current diagnosis for this admission?: YesPlan: Heart rate in the slightly bradycardic range without medication. Eliquis. (7) CAD (coronary artery disease) Qualifiers: Coronary Disease-Associated Artery/Lesion type: [place] artery [place] vs. transplanted heart: [place] heart Associated angina: without angina Qualified Code(s): I25.10 - Atherosclerotic heart disease of [place] coronary artery without angina pectoris Is this a current diagnosis for this admission?: YesPlan: Continue Lipitor. Patient is not on beta art secondary to resting bradycardia. He is not on aspirin therapy secondary to anticoagulation with Eliquis. 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 (9) Thrombocytopenia Is this a current diagnosis for this admission?: YesPlan: Possibly related to IV antibiotic as this started up on initiation of IV antibiotic. Discontinued IV clindamycin on 02/16/2017. Continue to monitor while on Eliquis. (10) Hypertension Qualifiers: Hypertension type: essential hypertension Qualified Code(s): I10 - Essential (primary) hypertension Is this a current diagnosis for this admission?: YesPlan: Increased Norvasc to 5 mg twice daily on 02/17/2017. When necessary IV hydralazine. (11) DNR (do not resuscitate) Is this a current diagnosis for this admission?: Yes - Time Time Spent with patient: 35 or more minutes
[2017-02-18] MEDS: INSULIN LISPRO 100 UNIT/ML 3 ML VIAL SUBCUT PRN (22:25)
[2017-02-18] MEDS: ATORVASTATIN CALCIUM 40 MG TABLET PO SCH (22:26)
[2017-02-18] MEDS: SENNOSIDES/DOCUSATE 8.6-50 MG 1 EACH TABLET PO SCH (22:26)
[2017-02-19] MEDS: LEVETIRACETAM 500 MG TABLET PO SCH ×2 (10:00→22:55)
[2017-02-19] MEDS: DOXYCYCLINE HYCLATE 100 MG TABLET PO SCH ×2 (10:00→22:54)
[2017-02-19] MEDS: BUDESONIDE/FORMOTEROL 160-4.5 MCG 60 PUFF/6 GM MDI IH SCH ×2 (10:00→18:00)
[2017-02-19] MEDS: FUROSEMIDE INJ/PF 40 MG/4 ML SDV IV SCH (10:00)
[2017-02-19] MEDS: SITAGLIPTIN PHOSPHATE 50 MG TABLET PO SCH (10:00)
[2017-02-19] MEDS: AMLODIPINE BESYLATE 5 MG TABLET PO SCH ×2 (10:00→22:54)
[2017-02-19] MEDS: APIXABAN 2.5 MG TABLET PO SCH ×2 (10:00→22:54)
[2017-02-19] MEDS ORDERED: FUROSEMIDE 40 MG TABLET ONE (17:29)
[2017-02-19] MEDS: SENNOSIDES/DOCUSATE 8.6-50 MG 1 EACH TABLET PO SCH (22:54)
[2017-02-19] MEDS: ATORVASTATIN CALCIUM 40 MG TABLET PO SCH (22:54)
[2017-02-19] MEDS: INSULIN LISPRO 100 UNIT/ML 3 ML VIAL SUBCUT PRN (23:05)
[2017-02-20] MEDS: LANSOPRAZOLE 30 MG TAB.RAP.DR PO SCH (05:30)
[2017-02-20 06:27] LABS: HEMATOCRIT 31.9 % (37.9-51.0); HEMOGLOBIN 10.2 g/dL (13.5-17.0); HGB HCT DIFFERENCE -1.3; MEAN CORPUSCULAR HEMOGLOBIN 29.8 pg (27.0-33.4); MEAN CORPUSCULAR VOLUME 93 fl (80-97); RED BLOOD COUNT 3.42 10^6/uL (4.35-5.55); RED CELL DISTRIBUTION WIDTH 14.6 % (11.5-14.0); WHITE BLOOD COUNT 7.6 10^3/uL (4.0-10.5)
[2017-02-20 06:39] LABS: ANION GAP 10 (5-19); BLOOD UREA NITROGEN 37 mg/dL (7-20); CALCIUM 8.9 mg/dL (8.4-10.2); CARBON DIOXIDE 34 mmol/L (22-30); CHLORIDE 98 mmol/L (98-107); CREATININE RESULT 1.07 mg/dL (0.52-1.25); GLUCOSE 152 mg/dL (75-110); POTASSIUM 4.7 mmol/L (3.6-5.0); SODIUM 141.6 mmol/L (137-145)
[2017-02-20] MEDS: ACETAMINOPHEN 325 MG TABLET PO PRN ×3 (07:38→23:29)
[2017-02-20 07:59] LABS: ABSOLUTE BASOPHILS # (AUTO) 0.1 10^3/uL (0.0-0.2); ABSOLUTE EOSINOPHILS # (AUTO) 0.2 10^3/uL (0.0-0.6); ABSOLUTE MONOCYTES (AUTO) 0.7 10^3/uL (0.1-1.4); ABSOLUTE NEUT (AUTO) 6.4 10^3/uL (1.7-8.2); BASOPHILS % (AUTO) 0.7 % (0-2); EOSINOPHILS % (AUTO) 2.9 % (0-6); HEMATOCRIT 31.6 % (37.9-51.0); HEMOGLOBIN 10.5 g/dL (13.5-17.0); HGB HCT DIFFERENCE -0.1; MEAN CORPUSCULAR HEMOGLOBIN 30.2 pg (27.0-33.4); MEAN CORPUSCULAR HGB CONC 33.2 g/dL (32.0-36.0); MEAN CORPUSCULAR VOLUME 91 fl (80-97); MONOCYTES % (AUTO) 8.4 % (3-13); RED BLOOD COUNT 3.47 10^6/uL (4.35-5.55); RED CELL DISTRIBUTION WIDTH 14.8 % (11.5-14.0); WHITE BLOOD COUNT 8.4 10^3/uL (4.0-10.5)
--- NOTE | 2017-02-20 08:34 | PROGRESS NOTE E ---
Progress Note NAME: KRISTINE DE ANDA : 1930 AGE: 86Y DATE: 02/19/2017 ROOM: 427 Time spent managing the patient is 25 minutes. SUBJECTIVE: The patient's shortness of breath has basically resolved. He is only currently slightly dyspneic, which is his baseline. His edema has improved. He denies any chest pain, abdominal pain, nausea, vomiting, fevers, chills. OBJECTIVE: VITAL SIGNS: Temperature 97.8, blood pressure 144/48, pulse 60, respirations 18, O2 sat is 97% on 2 L nasal cannula. GENERAL: He is alert, frail, elderly, hard of hearing. HEENT: Sclera is nonicteric. Oropharynx has moist mucous membranes. NECK: Has no JVD. Midline trachea. RESPIRATORY: Clear to auscultation. No wheezes or rhonchi. CARDIAC: Regular rate and rhythm. No murmurs, gallops or rubs. ABDOMEN: Soft, nontender, and nondistended. Positive bowel sounds. No rebound or guarding. EXTREMITIES: Have no edema, cyanosis or clubbing. LABORATORY STUDIES: Not available. ASSESSMENT AND PLAN: 1. HYPOXEMIC RESPIRATORY FAILURE. Continue oxygen supplementation. 2. ACUTE EXACERBATION OF CHF. Patient seems to be euvolemic at this time. I will discontinue IV Lasix and start oral Lasix 40 mg p.o. b.i.d. 3. PLEURAL EFFUSION. Patient is status post thoracentesis. 4. PNEUMONIA. Continue to complete course of oral antibiotics. DICTATING PHYSICIAN: EMMA MON M.D. [id number] PHY#: [id number] ID: [id number] JOB#: [id number] ACCT: [id number] cc: >
--- NOTE | 2017-02-20 09:45 | PROGRESS NOTE E ---
Progress Note NAME: KRISTINE DE ANDA : 1930 AGE: 86Y DATE: 02/19/2017 ROOM: 427 SUBJECTIVE: The patient is an 86-year-old male with a past medical history of COPD, pneumonia with bilateral pleural effusion, status post ultrasound guided thoracentesis, left side due to loculated pleural effusion. Patient appeared to be doing well over the last 2 days. No fever spikes. Denies any increased cough, purulent sputum production, hemoptysis. Patient was started on Eliquis today and appears to tolerate it well. No signs of bleeding. Patient has been afebrile for the last 2-3 days. OBJECTIVE: GENERAL: Patient is awake, alert and appeared to be lethargic and sleepy and not in acute respiratory distress. VITAL SIGNS: Temperature of 98.2 with a T-max of 98.4 with a heart rate of 58 per minute. Blood pressure is 152/45, respiration 17. Saturation is 94% on 2 L nasal cannula. EYES: No jaundice or pallor. EARS/NOSE/MOUTH/THROAT: No ear drainage noted. No nasal discharge. HEAD/NECK: No scalp swelling. No tenderness. Neck is supple. CHEST/LUNGS: No wheezing. No rhonchi. No coarse crackles. CARDIOVASCULAR: S1, S2 distinct. Normal rate, regular rhythm. ABDOMEN: Flabby. Positive bowel sounds. Soft, nondistended, nontender. EXTREMITIES: No joint swelling, no cellulitis. LABORATORY: No new CBC done today. No new chemistry done today. Pleural fluid analysis came in with a pleural fluid glucose of 192 which is unremarkable. The pleural fluid protein of 2.2 is also unremarkable, pleural fluid LDH of 79, within normal limits. The pleural fluid/serum protein ratio is 0.39 which suggests transudative nature of the pleural fluid and the pleural fluid/serum LDH ratio is 0.17 also suggestive of transudative pleural effusion. The pleural fluid total protein is 2.2. and pleural fluid LDH is 79 mcg. Lymphocyte is 76%, seg is 16. Pleural fluid white blood cell count is 664 which is within normal limits and pleural fluid RBC is 2235 which would be due to traumatic puncture ASSESSMENT: 1. PLEURAL EFFUSION LOCULATED LEFT SIDE. It is non infected space and transudative in nature. May be due to the previous infection. Does not require pigtail or prosthetic wire indwelling catheter chest tube drainage. Patient's pleural effusion will not require pleural decortication at this time. We will continue to observe this patient. The pleural effusion on the right is parapneumonic, uncomplicated pleural effusion which appeared to be improving on recent chest x-ray. 1. PNEUMONIA, BILATERAL. This seems to be clinically improving. White blood cell count has been normal the last 3-4 days and the absence of fever for the last few days. PLAN AND RECOMMENDATION: 1. Recommend oral antibiotics for a total of 2 weeks. 2. Recommend pulmonic followup in 2 weeks after hospital discharge. 3. Will sign off tonight. If you have any questions, please feel free to call me. DICTATING PHYSICIAN: DEVANTE ONEILL M.D. [id number] PHY#: [id number] ID: [id number] JOB#: [id number] ACCT: [id number] cc: > MTDD
--- NOTE | 2017-02-20 16:33 | PROGRESS NOTE E ---
Progress Note NAME: KRISTINE DE ANDA : 1930 AGE: 86Y DATE: 02/20/2017 ROOM: 427 TIME SPENT IN MANAGING THE PATIENT: 25 minutes SUBJECTIVE: The patient feels generally very well today. He is sitting in the bedside chair, laughing and joking with staff. His dyspnea is at baseline. He has no chest pain, no fevers or chills, no nausea or vomiting. OBJECTIVE: VITAL SIGNS: Temperature 97.9, blood pressure 137/46, pulse 63, respirations 22, O2 sats 95% on 2 liters nasal cannula. GENERAL: He is alert, in no acute distress. HEENT: Sclerae anicteric. Conjunctivae clear. Oropharynx with moist mucous membranes. NECK: Neck has no JVD, midline trachea. RESPIRATORY: Clear to auscultation. No wheezes or rhonchi. CARDIAC: Irregularly irregular. ABDOMEN: Soft, nontender, nondistended, positive bowel sounds, no rebound or guarding. EXTREMITIES: Extremities have no edema. NEUROLOGIC: Alert and oriented to person, place, time. Cranial nerves intact. No focal deficits. SKIN: No rashes or wounds. PSYCHIATRIC: Appropriate mood and affect. LABS: White blood count 7.6, hemoglobin 10.2, platelets 119. Chemistry panel is reviewed and stable. Pro-BNP level is 2380, [place] [address] on admission. Chest x-ray shows small left pleural effusion, which appears unchanged since thoracentesis. Interval improvement of right basilar density. ASSESSMENT/PLAN: 1. ACUTE ON CHRONIC HYPOXEMIC RESPIRATORY FAILURE. Continue oxygen supplementation. I will probably discharge the patient home on home oxygen. 2. ACUTE EXACERBATION OF CONGESTIVE HEART FAILURE SECONDARY TO DIASTOLIC DYSFUNCTION. Patient was transitioned to oral Lasix yesterday. He remains stable and compensated, based on clinical findings, chest x-ray, and labs. He is not on evidence-based beta art secondary to resting bradycardia at baseline. 3. ATRIAL FIBRILLATION. Continue Eliquis. The patient is slightly bradycardic at baseline. 4. CORONARY ARTERY DISEASE. Continue Lipitor. The patient is not on beta art secondary to bradycardia. He is not on aspirin secondary to Eliquis therapy. 5. DIABETES MELLITUS TYPE 2. Continue sliding scale insulin. Blood glucose is stable in general. 6. THROMBOCYTOPENIA. Probably related to previous intravenous antibiotics which have been discontinued. Thrombocytopenia is now improving. 7. HYPERTENSION. Stable on Norvasc 5 mg twice daily. 8. DO NOT RESUSCITATE STATUS. 9. PNEUMONIA. Complete course of oral doxycycline until 02/23/2017. DICTATING PHYSICIAN: EMMA MON M.D. [id number] PHY#: [id number] ID: [id number] JOB#: [id number] ACCT: [id number] cc: >
[2017-02-20] MEDS: BUDESONIDE/FORMOTEROL 160-4.5 MCG 60 PUFF/6 GM MDI IH SCH ×2 (17:03→23:30)
[2017-02-20] MEDS: FUROSEMIDE 40 MG TABLET PO SCH ×2 (17:03→20:57)
[2017-02-20] MEDS: DOXYCYCLINE HYCLATE 100 MG TABLET PO SCH ×2 (17:03→22:32)
[2017-02-20] MEDS: APIXABAN 2.5 MG TABLET PO SCH ×2 (17:03→22:32)
[2017-02-20] MEDS: AMLODIPINE BESYLATE 5 MG TABLET PO SCH ×2 (17:03→20:57)
[2017-02-20] MEDS: INSULIN LISPRO 100 UNIT/ML 3 ML VIAL SUBCUT PRN (17:04)
[2017-02-20] MEDS: LEVETIRACETAM 500 MG TABLET PO SCH ×2 (17:04→22:32)
[2017-02-20] MEDS: SITAGLIPTIN PHOSPHATE 50 MG TABLET PO SCH (17:04)
[2017-02-20] MEDS: SENNOSIDES/DOCUSATE 8.6-50 MG 1 EACH TABLET PO SCH (22:32)
[2017-02-20] MEDS: ATORVASTATIN CALCIUM 40 MG TABLET PO SCH (22:32)
[2017-02-21] MEDS: INSULIN LISPRO 100 UNIT/ML 3 ML VIAL SUBCUT PRN (00:16)
[2017-02-21 05:55] LABS: ABSOLUTE BASOPHILS # (AUTO) 0.1 10^3/uL (0.0-0.2); ABSOLUTE EOSINOPHILS # (AUTO) 0.3 10^3/uL (0.0-0.6); ABSOLUTE LYMPHOCYTES (AUTO) 1.3 10^3/uL (0.5-4.7); ABSOLUTE MONOCYTES (AUTO) 0.6 10^3/uL (0.1-1.4); ABSOLUTE NEUT (AUTO) 3.2 10^3/uL (1.7-8.2); BASOPHILS % (AUTO) 1.1 % (0-2); EOSINOPHILS % (AUTO) 5.2 % (0-6); HEMATOCRIT 32.1 % (37.9-51.0); HEMOGLOBIN 10.5 g/dL (13.5-17.0); HGB HCT DIFFERENCE -0.6; LYMPHOCYTES % (AUTO) 23.6 % (13-45); MEAN CORPUSCULAR HEMOGLOBIN 29.9 pg (27.0-33.4); MEAN CORPUSCULAR HGB CONC 32.6 g/dL (32.0-36.0); MEAN CORPUSCULAR VOLUME 92 fl (80-97); MONOCYTES % (AUTO) 11.4 % (3-13); RED BLOOD COUNT 3.49 10^6/uL (4.35-5.55); RED CELL DISTRIBUTION WIDTH 14.1 % (11.5-14.0); SEGMENTED NEUTROPHILS % (AUTO) 58.7 % (42-78); WHITE BLOOD COUNT 5.4 10^3/uL (4.0-10.5)
[2017-02-21 06:14] LABS: ANION GAP 9 (5-19); BLOOD UREA NITROGEN 37 mg/dL (7-20); CALCIUM 8.9 mg/dL (8.4-10.2); CARBON DIOXIDE 32 mmol/L (22-30); CHLORIDE 99 mmol/L (98-107); CREATININE RESULT 0.98 mg/dL (0.52-1.25); GLUCOSE 134 mg/dL (75-110); SODIUM 140.3 mmol/L (137-145)
[2017-02-21] MEDS: LANSOPRAZOLE 30 MG TAB.RAP.DR PO SCH (06:54)
[2017-02-21] MEDS: ACETAMINOPHEN 325 MG TABLET PO PRN (08:39)
--- NOTE | 2017-02-21 11:06 | TRANSFER SUMMARY E ---
Transfer Summary NAME: KRISTINE DE ANDA : 1930 AGE: 86Y ADMITTED: 02/09/2017 TRANSFERRED: 02/21/2017 TRANSFER DIAGNOSES: 1. ACUTE HYPOXEMIC RESPIRATORY FAILURE, MULTIFACTORIAL. 2. ACUTE EXACERBATION OF CHF SECONDARY TO DIASTOLIC DYSFUNCTION. 3. ATRIAL FIBRILLATION. 4. PNEUMONIA. 5. CORONARY ARTERY DISEASE. 6. TYPE 2 DIABETES MELLITUS. 7. THROMBOCYTOPENIA. 8. HYPERTENSION. 9. DO NOT RESUSCITATE STATUS. 10. COPD. 11. PLEURAL EFFUSIONS, STATUS POST THORACENTESES. TRANSFER MEDICATIONS: 1. DuoNeb 3 times a day p.r.n. 2. Tradjenta 5 mg p.o. daily. 3. Novolog q.a.c. per sliding scale. 4. Senokot 1 tablet at bedtime. 5. Doxepin 6 mg p.o. at bedtime. 6. Lipitor 40 mg p.o. at bedtime. 7. Tylenol 650 mg p.o. q. 6h. p.r.n. pain or temperature. 8. Keppra 500 mg p.o. b.i.d. 9. Symbicort 1 inhalation twice daily. 10. Eliquis 2.5 mg p.o. b.i.d. 11. Norvasc 5 mg p.o. daily. 12. Prilosec 20 mg p.o. daily. 13. Lasix 40 mg p.o. daily. 14. Doxycycline 100 mg p.o. b.i.d. x5 days. HOSPITAL COURSE: Patient was admitted with chief complaint of shortness of breath. He was found to have multifactorial frjpb-co-fcxqypw hypoxemic respiratory failure as a result of pneumonia, CHF exacerbation, pleural effusion. With respect to gbfzg-sb-nkkyyyh hypoxemic respiratory failure, he has been on oxygen supplementation throughout hospitalization and we will discharge him on 2 L nasal cannula oxygen. With regard to CHF exacerbation, he was initially aggressively diuresed with IV Lasix, but has now been transitioned to oral Lasix. He has diastolic dysfunction. He was not placed on an evidence-based beta art secondary to resting bradycardia. With regard to pneumonia, patient was initially on IV antibiotics but has now been transitioned to oral doxycycline and has 5 more days' therapy with oral doxycycline at time of discharge. With respect to pleural effusion, patient was seen by Dr. Isbell and underwent thoracentesis. This was thought to be secondary to pneumonia and CHF. Pleural fluid cytology was negative for malignant cells. Patient will need to followup with Dr. Isbell for pleural effusion, pneumonia, COPD. He should have repeat chest x-ray in 3 to 4 weeks. CODE STATUS: DO NOT RESUSCITATE status. TRANSFER ACTIVITY: As tolerated. TRANSFER CONDITION: Stable. TRANSFER DIET: Cardiac, carb-consistent diet. TRANSFER ALLERGIES: No known drug allergies. LABORATORIES AT TIME OF TRANSFER: White blood count 5.4, hemoglobin 10.5, hematocrit 32.1, platelets 140. Sodium 140, potassium is 5.0, chloride 99, bicarbonate 32, BUN 37, creatinine 0.98, glucose 134, calcium 8.9. Pro-BNP level 2380, which is down from 11,900 on admission. Chest x-ray done on 02/20/2017 showed clearing of pulmonary edema and with minimal effusion. No change since chest x-ray done after thoracentesis. Blood cultures from 02/08/2017 were no growth. Pleural fluid cultures from 02/17/2017 is no growth. TRANSFER FOLLOWUP: 1. Follow up with primary care provider at [facility] as soon as possible. 2. Follow up with Dr. Isbell of pulmonary medicine. TIME SPENT: Forty-five minutes spent transferring patient back to alf facility, [facility]. DICTATING PHYSICIAN: EMMA MON M.D. [id number] PHY#: [id number] ID: [id number] JOB#: [id number] ACCT: [id number] cc:EMMA MON >
[2017-02-21] MEDS: SITAGLIPTIN PHOSPHATE 50 MG TABLET PO SCH (12:49)
[2017-02-21] MEDS: AMLODIPINE BESYLATE 5 MG TABLET PO SCH (12:49)
[2017-02-21] MEDS: FUROSEMIDE 40 MG TABLET PO SCH (12:50)
[2017-02-21] MEDS: LEVETIRACETAM 500 MG TABLET PO SCH (12:50)
[2017-02-21] MEDS: APIXABAN 2.5 MG TABLET PO SCH (12:50)
[2017-02-21] MEDS: BUDESONIDE/FORMOTEROL 160-4.5 MCG 60 PUFF/6 GM MDI IH SCH (12:51)
[2017-02-21] MEDS: DOXYCYCLINE HYCLATE 100 MG TABLET PO SCH (12:51)
[2017-02-21 14:06] VITALS: BP 168/56
[2017-02-21 16:24] LABS: ANION GAP 9 (5-19); BLOOD UREA NITROGEN 34 mg/dL (7-20); CALCIUM 8.6 mg/dL (8.4-10.2); CARBON DIOXIDE 34 mmol/L (22-30); CHLORIDE 100 mmol/L (98-107); CREATININE RESULT 1.08 mg/dL (0.52-1.25); GLUCOSE 144 mg/dL (75-110); POTASSIUM 4.7 mmol/L (3.6-5.0); SODIUM 142.7 mmol/L (137-145)
== END 2017-02-21 15:09 | DRG 189 ==
LOC: ER 22:54 → UNDOADMIN 02-09 02:41 → EH 02-09 02:41 → 4S 02-09 05:18 → EH 02-09 05:18 → INTOOBSV 02-09 06:55 → 4S 02-09 06:55 → OBSVTOIN 02-09 12:19
PROVIDERS: ADMIT Internal Medicine Geriatric Medicine; ATTEND Internal Medicine Geriatric Medicine
PROC: 0W9B3ZZ Drainage of Left Pleural Cavity, Percutaneous Approach (ICD-10-PCS; principal; 2017-02-17)
DX: J96.21 Acute and chronic respiratory failure with hypoxia (principal); I50.33 Acute on chronic diastolic (congestive) heart failure; J18.9 Pneumonia, unspecified organism; I13.0 Hypertensive heart and chronic kidney disease with heart failure and stage 1 through stage 4 chronic kidney disease, or unspecified chronic kidney disease; J44.0 Chronic obstructive pulmonary disease with (acute) lower respiratory infection; J90 Pleural effusion, not elsewhere classified; Z66 Do not resuscitate; E11.65 Type 2 diabetes mellitus with hyperglycemia; I48.2 Chronic atrial fibrillation; I25.10 Atherosclerotic heart disease of native coronary artery without angina pectoris; E78.5 Hyperlipidemia, unspecified; D69.6 Thrombocytopenia, unspecified; K21.9 Gastro-esophageal reflux disease without esophagitis; E11.22 Type 2 diabetes mellitus with diabetic chronic kidney disease; N18.1 Chronic kidney disease, stage 1; I25.2 Old myocardial infarction; Z79.4 Long term (current) use of insulin; Z79.01 Long term (current) use of anticoagulants; Z95.5 Presence of coronary angioplasty implant and graft; Z95.1 Presence of aortocoronary bypass graft
CPT/HCPCS: 32555; 36415; 71010; 71275; 80048; 80053; 80061; 81001; 82803; 82945; 82962; 83036; 83615; 83735; 83880; 84157; 84484; 85025; 85027; 85610; 87040; 87070; 87075; 87205; 88305; 88313; 88341; 88342; 89050; 94640; 99291; G0378; J0696; J1815; J1940; J2543; J3370; J3490; J7620

== ENCOUNTER 2017-06-02 20:32 | Inpatient (IN) | payer MEDICARE, MEDICAID ==
[2017-06-02 21:03] LABS: HEMATOCRIT 34.1 % (37.9-51.0); HEMOGLOBIN 10.9 g/dL (13.5-17.0); HGB HCT DIFFERENCE -1.4; MEAN CORPUSCULAR HEMOGLOBIN 28.7 pg (27.0-33.4); MEAN CORPUSCULAR HGB CONC 31.9 g/dL (32.0-36.0); MEAN CORPUSCULAR VOLUME 90 fl (80-97); RED BLOOD COUNT 3.79 10^6/uL (4.35-5.55); RED CELL DISTRIBUTION WIDTH 15.2 % (11.5-14.0); WHITE BLOOD COUNT 10.3 10^3/uL (4.0-10.5)
--- NOTE | 2017-06-02 21:12 | RADIOLOGY REPORT (SQ) ---
EXAM DESCRIPTION: CHEST SINGLE VIEW COMPLETED DATE/TIME: 06/02/2017 8:59 pm REASON FOR STUDY: difficulty breathing COMPARISON: 02/20/2017 EXAM PARAMETERS: NUMBER OF VIEWS: One view. TECHNIQUE: Single frontal radiographic view of the chest acquired. RADIATION DOSE: NA LIMITATIONS: None. FINDINGS: LUNGS AND PLEURA: Interval development of extensive parenchymal opacity at the right base. Persistent left effusion which is increased slightly. Left basilar opacity. No pneumothorax. MEDIASTINUM AND HILAR STRUCTURES: No masses. Contour normal. HEART AND VASCULAR STRUCTURES: Heart normal in size. Normal vasculature. BONES: No acute findings. HARDWARE: None in the chest. OTHER: No other significant finding. IMPRESSION: Acute right lower lobe pneumonia. Left lower lobe pneumonia with chronic left pleural e ffusion. Question aspiration complex. TECHNICAL DOCUMENTATION: JOB ID: [id number]
[2017-06-02 21:20] LABS: ALANINE AMINOTRANSFERASE 19 U/L (21-72); ALBUMIN 3.3 g/dL (3.5-5.0); ALKALINE PHOSPHATASE 146 U/L (38-126); ANION GAP 13 (5-19); ASPARTATE AMINO TRANSFERASE 15 U/L (17-59); BILIRUBIN,DIRECT 0.5 mg/dL (0.0-0.4); BILIRUBIN,TOTAL 0.8 mg/dL (0.2-1.3); BLOOD UREA NITROGEN 39 mg/dL (7-20); CARBON DIOXIDE 25 mmol/L (22-30); CHLORIDE 101 mmol/L (98-107); CREATINE KINASE 27 U/L (55-170); CREATININE RESULT 1.15 mg/dL (0.52-1.25); POTASSIUM 4.9 mmol/L (3.6-5.0); SODIUM 138.8 mmol/L (137-145); TOTAL PROTEIN 6.4 g/dL (6.3-8.2)
[2017-06-02 21:25] LABS: BAND NEUTROPHILS % (MANUAL) 4 % (3-5); BASOPHILS % (MANUAL) 1 % (0-2); EOSINOPHILS % (MANUAL) 0 % (0-6); LYMPHOCYTES % (MANUAL) 0 % (13-45); TOTAL CELLS COUNTED 100
[2017-06-02 21:26] LABS: POIKILOCYTOSIS SLIGHT
[2017-06-02 21:27] LABS: ANISOCYTOSIS SLIGHT; HYPOCHROMASIA SLIGHT; OVALOCYTES SLIGHT
[2017-06-02 21:28] LABS: GLUCOSE 525 mg/dL (75-110)
[2017-06-02] MEDS ORDERED: INSULIN REG, HUMAN 100 UNIT/ML 3 ML VIAL (PYX) IV ONE (21:30)
[2017-06-02] MEDS ORDERED: VANCOMYCIN HCL INJ 1000 MG VIAL IV ONE (21:31)
[2017-06-02 21:32] LABS: CREATINE KINASE MB 1.9 ng/mL (<4.55)
[2017-06-02] MEDS ORDERED: PIPERACILLIN/TAZOBACTAM 3.375 GM VIAL IV ONE (21:32)
[2017-06-02 21:35] LABS: TROPONIN I 0.039 ng/mL
[2017-06-02] MEDS ORDERED: IPRATROPIUM/ALBUTEROL 0.5-2.5 MG/3 ML AMPUL NEB ONE (21:50)
[2017-06-02] MEDS ORDERED: METHYLPREDNISOLONE INJ 125 MG/2 ML SDV IV ONE (21:52)
--- NOTE | 2017-06-02 23:22 | EKG REPORT ---
SEVERITY:- ABNORMAL ECG - ATRIAL FIBRILLATION, V-RATE 65-82 NONSPECIFIC T ABNORMALITIES, LATERAL LEADS : Confirmed by: Gamaliel Palomares 02-Jun-2017 23:21:39
--- NOTE | 2017-06-03 00:27 | ER Document Report ---
ED General - General Chief Complaint: Breathing Difficulty Stated Complaint: DIFFICULTY BREATHING Time Seen by Provider: 06/02/17 21:00 Mode of Arrival: Medic Information source: Patient TRAVEL OUTSIDE OF THE [place] IN LAST 30 DAYS: No - HPI Notes: Patient is an 86-year-old male history of COPD previous pneumonia and chronic atrial fibrillation and epg-jtxcrix-jgcdbbaii diabetes and DNR status [facility] from local [facility] with report of progressive difficulty breathing with cough that the patient's had for the last 5 days. He was placed upon steroids which is driven his blood sugar up and had a blood sugar 468 by EMS. The patient has had no fever. Patient denies any chest pain. Patient is on oxygen just in the evenings by his report, but as needed oxygen during the daytime for the last few days. Patient had an O2 sat in the 80's per EMS in route. Patient reports no abdominal pain or nausea or vomiting. Patient does report a minimally productive cough. No history of vomiting. Patient is alert and oriented 3 upon arrival. - Related Data Allergies/Adverse Reactions: No Known Allergies Allergy (Verified 04/13/15 06:48) Past Medical History - General Information source: Patient, Transfer Record, Emergency Med Personnel, Outside Facility Records - Social History Smoking Status: Unknown if Ever Smoked Frequency of alcohol use: None Drug Abuse: None Lives with: [facility] Family History: Reviewed & Not Pertinent - Past Medical History Cardiac Medical History: Reports: Hx Atrial Fibrillation, Hx Congestive Heart Failure, Hx Coronary Artery Disease, Hx Heart Attack, Hx Hypercholesterolemia, Hx Hypertension Pulmonary Medical History: Reports: Hx COPD, Hx Pneumonia Endocrine Medical History: Reports: Hx Diabetes Mellitus Type 2 Renal/ Medical History: Denies: Hx Peritoneal Dialysis GI Medical History: Reports: Hx Gastroesophageal Reflux Disease Musculoskeltal Medical History: Reports Hx Arthritis Psychiatric Medical History: Reports: Hx Dementia - Has not been diagnosed with dementia but the exam certainly suggests it., Hx Depression Past Surgical History: Reports: Hx Cardiac Catheterization - stents x 3, Hx Cardiac Surgery, Hx Cholecystectomy, 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 , Hx Coronary Stent, Hx Open Heart Surgery, Hx Orthopedic Surgery - Left hip x 2 - Immunizations Hx Diphtheria, Pertussis, Tetanus Vaccination: Yes - Pt unsure of last tetanus shot Hx Pneumococcal Vaccination: 10/06/13 Review of Systems - Review of Systems Notes: REVIEW OF SYSTEMS: CONSTITUTIONAL : Denies fever, chills, or sweats. EENT: Denies eye, ear, throat, or mouth pain or symptoms. Denies nasal or sinus congestion or discharge. Denies throat, tongue, or mouth swelling or difficulty swallowing. CARDIOVASCULAR: Denies chest pain. Denies palpitations or racing or irregular heart beat. Denies ankle edema. RESPIRATORY: Reports dyspnea and cough. GASTROINTESTINAL: Denies abdominal pain or distention. Denies nausea, vomiting , or diarrhea. Denies blood in vomitus, stools, or per rectum. Denies black, tarry stools. Denies constipation. GENITOURINARY: Denies difficulty urinating, painful urination, burning, frequency, blood in urine, or discharge. MUSCULOSKELETAL: Denies back or neck pain or stiffness. Denies joint pain or swelling. SKIN: Denies rash, lesions or sores. HEMATOLOGIC : Denies easy bruising or bleeding. LYMPHATIC: Denies swollen, enlarged glands. NEUROLOGICAL: Denies confusion or altered mental status. Denies passing out or loss of consciousness. Denies dizziness or lightheadedness. Denies headache. Denies weakness or paralysis or loss of use of either side. Denies problems with gait or speech. Denies sensory loss, numbness, or tingling. Denies seizures. PSYCHIATRIC: Denies anxiety or stress. Denies depression, suicidal ideation, or homicidal ideation. ALL OTHER SYSTEMS REVIEWED AND NEGATIVE. Dictation was performed using [employer] voice recognition software Physical Exam - Vital signs Vitals: Resp BP Pulse Ox 21 H 153/58 H 91 L 06/02/17 20:41 06/02/17 20:41 06/02/17 20:41 - Notes Notes: PHYSICAL EXAMINATION: GENERAL: Well-appearing, well-nourished and in no acute distress. HEAD: Atraumatic, normocephalic. EYES: Pupils equal round and reactive to light, extraocular movements intact, sclera anicteric, conjunctiva are normal. ENT: Nares patent, oropharynx clear without exudates. Moist mucous membranes. NECK: Normal range of motion, supple without lymphadenopathy. No JVD. LUNGS: Coarse breath sounds bilaterally with scant wheeze noted. No accessory muscle use. Patient is diminished through both bases right greater than left. HEART: Irregular rhythm rate 75 with a 1/6 systolic ejection murmur best auscultated over the apex. ABDOMEN: Soft, nontender, nondistended abdomen. No guarding, no rebound. No masses appreciated. Musculoskeletal: Normal range of motion. No cyanosis. 1+ bilateral lower extremity edema. NEUROLOGICAL: Cranial nerves grossly intact. Normal speech, normal gait. Normal sensory, motor exams PSYCH: Normal mood, normal affect. SKIN: Warm, Dry, normal turgor. Minimal stage I decubitus on the sacral region. No active evidence for infection. Course - Re-evaluation Re-evalutation: 06/03/17 01:19 Chest x-ray is interpreted by radiology and reviewed by myself did show evidence for right greater than left base infiltrate. Blood cultures were taken and lactic acid was somewhat elevated. Patient was given vancomycin and Zosyn antibiotic after cultures given that the patient comes from [facility] facility. Blood sugar was elevated at 525. Patient was given regular insulin 10 units IV and repeat blood sugar came down to 433. Blood sugar elevation may be secondary to infection but could also be related to recent 5 days of steroids at the patient has received while in the [facility]. Oxygen saturations and wheezing improved with nebulizer treatments. Patient was given IV Solu-Medrol for his wheezing with some improvement. Patient had elevated BNP of 9380 where is his normal baseline values range recently from 2000 up to 12,000. Discussion was undertaken with the patient and he was in agreement with admission for further evaluation and management. Troponin was negative. No obvious evidence for acute WA. Patient has a DNR status. Discussion was undertaken with the hospitalist, who agreed to admit the patient for further evaluation and management. 06/03/17 01:22 - Vital Signs Vital signs: Temp Pulse Resp BP Pulse Ox 21 H 149/54 H 95 06/02/17 23:01 06/02/17 23:01 06/02/17 23:01 - Laboratory Result Diagrams: 06/02/17 20:50 06/02/17 20:50 Laboratory results interpreted by me: 06/02/17 06/02/17 06/02/17 20:50 20:50 20:50 RBC 3.79 L Hgb 10.9 L Hct 34.1 L MCHC 31.9 L RDW 15.2 H Plt Count 149 L Seg Neuts % (Manual) 94 H Lymphocytes % (Manual) 0 L Monocytes % (Manual) 1 L Abs Neuts (Manual) 10.1 H Abs Lymphs (Manual) 0.0 L BUN 39 H Glucose 525 H* POC Glucose Lactic Acid Direct Bilirubin 0.5 H AST 15 L ALT 19 L Alkaline Phosphatase 146 H Creatine Kinase 27 L NT-Pro-B Natriuret Pep 9380 H Albumin 3.3 L Urine Protein Urine Glucose (UA) Urine Blood 06/02/17 06/03/17 06/03/17 21:43 00:30 00:39 RBC Hgb Hct MCHC RDW Plt Count Seg Neuts % (Manual) Lymphocytes % (Manual) Monocytes % (Manual) Abs Neuts (Manual) Abs Lymphs (Manual) BUN Glucose POC Glucose 433 H* Lactic Acid 2.5 H Direct Bilirubin AST ALT Alkaline Phosphatase Creatine Kinase NT-Pro-B Natriuret Pep Albumin Urine Protein 100 H Urine Glucose (UA) >=500 H Urine Blood SMALL H - EKG Interpretation by Me Additional EKG results interpreted by me: 06/03/17 01:18 EKG as interpreted by me showed atrial fibrillation with controlled ventricular response rate of 75. There is no gross evidence for acute WA or ischemia noted. There is no significant change versus previous EKG reviewed from . Critical Care Note - Critical Care Note Total time excluding time spent on procedures (mins): 46 Discharge - Discharge Clinical Impression: COPD with acute exacerbation, Hyperglycemia, Hypoxia Pneumonia Qualifiers: Pneumonia type: due to unspecified organism Laterality: right Lung location: lower lobe of lung Qualified Code(s): J18.1 - Lobar pneumonia, unspecified organism Condition: Stable Disposition: ADMITTED INPATIENT Admitting Provider: Hospitalist Unit Admitted: Telemetry Referrals: TRISTON GARCIA MD [Primary Care Provider] - Follow up as needed
[2017-06-03] MEDS ORDERED: DEXTROSE 50%-WATER 25 GM/50 ML DISP.SYRIN IV PRN ×2 (00:58)
[2017-06-03] MEDS ORDERED: DEXTROSE 40% GEL 15 GM TUBE PO PRN ×2 (00:58)
[2017-06-03] MEDS ORDERED: GLUCAGON,HUMAN RECOMB 1 MG INJ IM PRN (00:58)
[2017-06-03] MEDS ORDERED: ACETAMINOPHEN 325 MG TABLET PO PRN (00:58)
[2017-06-03 01:01] LABS: APPEARANCE,URINE CLEAR; BILIRUBIN,URINE NEGATIVE (NEGATIVE); GLUCOSE, URINE >=500 mg/dL (NEGATIVE); KETONES,URINE NEGATIVE (NEGATIVE); LEUKOCYTE ESTERASE,URINE NEGATIVE (NEGATIVE); NITRITE,URINE NEGATIVE (NEGATIVE); PROTEIN,URINE 100 mg/dL (NEGATIVE); URINE SPECIFIC GRAVITY 1.017; UROBILINOGEN,URINE NEGATIVE mg/dL (<2.0)
[2017-06-03] MEDS ORDERED: NORMAL SALINE 1000 ML 1,000 ML IV ONE (01:01)
[2017-06-03] MEDS ORDERED: AZITHROMYCIN INJ 500 MG VIAL IV PRN (01:41)
[2017-06-03] MEDS ORDERED: HYDRALAZINE HCL INJ/PF 20 MG/1 ML SDV IV PRN (01:48)
[2017-06-03] MEDS ORDERED: AZITHROMYCIN 500 MG in DEXTROSE 5%-WATER 250 ML IV ONE (02:00)
--- NOTE | 2017-06-03 04:02 | PDOC H&P ---
History of Present Illness Admission Date/PCP: 06/03/17 00:58 TRISTON GARCIA MD Patient complains of: Shortness of breath History of Present Illness: KRISTINE DE ANDA is a 86 year old male with a past medical history of diabetes, COPD, atrial fibrillation, diastolic heart failure with moderate mitral and tricuspid regurgitation and recurrent pleural effusions who is a long-term alf resident and noted by staff to have a nonproductive cough. He is referred to the hospital for evaluation. In the emergency room he was found to have bilateral pleural effusions with atelectasis versus pneumonia he started on empiric antibiotics and referred to the hospitalist for admission. The patient is a poor historian and unable to provide significant details. He denies chest pain nausea vomiting or palpitations. Past Medical History Cardiac Medical History: Reports: Atrial Fibrillation, Congestive Heart Failure , Coronary Artery Disease, Myocardial Infarction, Hyperlipidema, Hypertension Pulmonary Medical History: Reports: Chronic Obstructive Pulmonary Disease (COPD) , Pneumonia Endocrine Medical History: Reports: Diabetes Mellitus Type 2 GI Medical History: Reports: Gastroesophageal Reflux Disease Musculoskeltal Medical History: Reports: Arthritis Psychiatric Medical History: Reports: Dementia - Has not been diagnosed with dementia but the exam certainly suggests it., Depression Past Surgical History Past Surgical History: Reports: Cardiac Catheterization - stents x 3, Cholecystectomy, Coronary Artery Bypass Graft - 3 vessel, Coronary Stent, Orthopedic Surgery - Left hip x 2 Social History Information Source: Emergency Med Personnel, [facility] Records Lives with: Long-Term Smoking Status: Unknown if Ever Smoked Frequency of Alcohol Use: None Hx Recreational Drug Use: No Drugs: None Hx Prescription Drug Abuse: No - Advance Directive Resuscitation Status: Do Not Resuscitate Family History Family History: Reviewed & Not Pertinent Parental Family History Reviewed: Yes - Unobtainable Children Family History Reviewed: Yes - Unobtainable Sibling(s) Family History Reviewed.: Yes - Unobtainable Medication/Allergy Home Medications: Acetaminophen [Tylenol 325 mg Tablet] 650 mg PO Q6HP PRN 02/09/17 Amlodipine Besylate [Norvasc 5 mg Tablet] 5 mg PO DAILY 02/09/17 Apixaban [Eliquis 2.5 mg Tablet] 2.5 mg PO Q12 02/09/17 Atorvastatin Calcium [Lipitor 40 mg Tablet] 40 mg PO QHS 02/09/17 Budesonide/Formoterol Fumarate [Symbicort HFA 160-4.5 mcg Inhaler 6 gm] 1 puff IH BID 02/09/17 Doxepin HCl [Silenor] 6 mg PO QHS 02/09/17 Insulin Aspart [Novolog Insulin (Aspart) 100 unit/mL] 0 units SQ .PERSLIDINGSCALE 02/09/17 Ipratropium/Albuterol Sulfate [Duoneb 3 ml Ampul] 3 ml NEB RTTIDP PRN 02/09/17 Levetiracetam [Keppra 500 mg Tablet] 500 mg PO Q12 02/09/17 Linagliptin [Tradjenta] 5 mg PO DAILY 02/09/17 Omeprazole 20 mg PO DAILY 02/09/17 Sennosides [Senna] 17.2 mg PO QHS 02/09/17 Doxycycline Hyclate [Vibramycin 100 mg Tablet] 100 mg PO Q12 #10 tablet Furosemide [Lasix] 40 mg PO BID #60 tablet 02/21/17 Allergies/Adverse Reactions: No Known Allergies Allergy (Verified 04/13/15 06:48) Review of Systems ROS unobtainable: Due to mental status - Dementia Physical Exam Vital Signs: Temp Pulse Resp BP Pulse Ox 98.2 F 66 20 149/77 H 95 06/03/17 02:29 06/03/17 03:45 06/03/17 02:29 06/03/17 02:29 06/03/17 02:29 General appearance: PRESENT: cooperative Head exam: PRESENT: atraumatic, normocephalic Eye exam: PRESENT: conjunctiva pink, EOMI, PERRLA. ABSENT: scleral icterus Ear exam: PRESENT: normal external ear exam Mouth exam: PRESENT: moist, tongue midline Neck exam: ABSENT: carotid bruit, JVD, lymphadenopathy, thyromegaly Respiratory exam: PRESENT: crackles, decreased breath sounds, prolonged expiratory phas, symmetrical, tachypnea. ABSENT: accessory muscle use, retraction, rhonchi Cardiovascular exam: PRESENT: irregular rhythm Pulses: PRESENT: normal dorsalis pedis pul Vascular exam: PRESENT: normal capillary refill GI/Abdominal exam: PRESENT: distended, hypoactive bowel sounds, soft. ABSENT: rigid, tenderness Rectal exam: PRESENT: deferred Extremities exam: PRESENT: full ROM. ABSENT: calf tenderness, clubbing, pedal edema Neurological exam: PRESENT: alert, awake Psychiatric exam: PRESENT: flat affect Skin exam: PRESENT: dry, intact, warm. ABSENT: cyanosis, rash Results Laboratory Results: 06/03/17 02:08 Lactic Acid 2.0 Impressions: Chest X-Ray 06/02/17 20:36 IMPRESSION: Acute right lower lobe pneumonia. Left lower lobe pneumonia with chronic left pleural effusion. Question aspiration complex. Assessment & Plan - Diagnosis (1) COPD with acute exacerbation Is this a current diagnosis for this admission?: Yes Plan: Albuterol, Atrovent, low-dose prednisone, flutter valve empiric antibiotics for bronchitis (2) Hyperglycemia Is this a current diagnosis for this admission?: Yes Plan: Exacerbation likely secondary to steroids, home regiment with sliding scale coverage (3) Pneumonia Qualifiers: Pneumonia type: due to unspecified organism Laterality: right Lung location: lower lobe of lung Qualified Code(s): J18.1 - Lobar pneumonia, unspecified organism Is this a current diagnosis for this admission?: Yes Plan: Atelectasis versus pneumonia complicated by COPD and chronic bronchitis. Empiric antibiotics ordered, incentive spirometry as able (4) Atrial fibrillation Is this a current diagnosis for this admission?: Yes Plan: Rate controlled continue outpatient regiment (5) Constipation Is this a current diagnosis for this admission?: Yes Plan: Colace and lactulose as needed enema - Time Time Spent: 50 to 70 Minutes - Inpatient Certification Medical Necessity: Need Close Monitoring Due to Risk of Patient Decompensation
[2017-06-03] MEDS ORDERED: MINERAL OIL ENEMA 133 ML PR PRN (04:03)
[2017-06-03] MEDS: HEPARIN SOD (PORCINE) 5,000 UNIT/ML 1 ML SYRINGE SUBCUT SCH ×3 (05:22→21:19)
[2017-06-03] MEDS: INSULIN LISPRO 100 UNIT/ML 3 ML VIAL SUBCUT PRN ×3 (06:45→17:15)
[2017-06-03 07:28] LABS: HEMATOCRIT 32.6 % (37.9-51.0); HEMOGLOBIN 10.5 g/dL (13.5-17.0); HGB HCT DIFFERENCE -1.1; MEAN CORPUSCULAR HEMOGLOBIN 28.4 pg (27.0-33.4); MEAN CORPUSCULAR HGB CONC 32.3 g/dL (32.0-36.0); MEAN CORPUSCULAR VOLUME 88 fl (80-97); RED CELL DISTRIBUTION WIDTH 15.3 % (11.5-14.0); WHITE BLOOD COUNT 8.8 10^3/uL (4.0-10.5)
[2017-06-03 07:43] LABS: ANION GAP 15 (5-19); BLOOD UREA NITROGEN 36 mg/dL (7-20); CALCIUM 9.2 mg/dL (8.4-10.2); CARBON DIOXIDE 26 mmol/L (22-30); CHLORIDE 101 mmol/L (98-107); CREATININE RESULT 1.15 mg/dL (0.52-1.25); POTASSIUM 4.6 mmol/L (3.6-5.0); SODIUM 141.5 mmol/L (137-145)
[2017-06-03 07:50] LABS: ANISOCYTOSIS SLIGHT; BASOPHILS % (MANUAL) 0 % (0-2); EOSINOPHILS % (MANUAL) 0 % (0-6); LYMPHOCYTES % (MANUAL) 2 % (13-45); PLATELET CLUMPS PRESENT; TOTAL CELLS COUNTED 100
[2017-06-03 07:51] LABS: BURR CELLS SLIGHT; OVALOCYTES SLIGHT; POIKILOCYTOSIS SLIGHT
[2017-06-03 08:13] LABS: GLUCOSE 436 mg/dL (75-110)
[2017-06-03] MEDS: IPRATROPIUM/ALBUTEROL 0.5-2.5 MG/3 ML AMPUL NEB SCH ×3 (08:24→23:49)
[2017-06-03] MEDS ORDERED: INSULIN LISPRO 100 UNIT/ML 3 ML VIAL SUBCUT ONE (09:00)
[2017-06-03] MEDS: APIXABAN 2.5 MG TABLET PO SCH ×2 (09:29→21:18)
[2017-06-03] MEDS: FUROSEMIDE 40 MG TABLET PO SCH ×2 (09:33→17:26)
[2017-06-03] MEDS: LEVETIRACETAM 500 MG TABLET PO SCH ×2 (09:35→21:18)
[2017-06-03] MEDS: SITAGLIPTIN PHOSPHATE 50 MG TABLET PO SCH (09:36)
[2017-06-03] MEDS: AMLODIPINE BESYLATE 5 MG TABLET PO SCH (09:37)
[2017-06-03] MEDS: LOSARTAN POTASSIUM 25 MG TABLET PO SCH ×2 (09:37→21:18)
[2017-06-03] MEDS: CEFTRIAXONE 1 GM/D5W RTU 1 GM/50 ML RTUPB IV SCH (09:44)
[2017-06-03] MEDS ORDERED: (PENDING PHARMACY ID) (Linagliptin [Tradjenta] 5 MG) PO SCH (10:00)
[2017-06-03] MEDS: BUDESONIDE/FORMOTEROL 160-4.5 MCG 60 PUFF/6 GM MDI IH SCH ×2 (10:36→17:28)
[2017-06-03] MEDS ORDERED: SODIUM CHLORIDE 3% FOR INHALATION 15 ML AMPUL NEB ONE (11:34)
--- NOTE | 2017-06-03 11:49 | PDOC PROGRESS REPORT ---
Subjective Progress Note for:: 06/03/17 Subjective:: Patient complains of a nonproductive cough this morning. Physical Exam Vital Signs: Temp Pulse Resp BP Pulse Ox 97.9 F 60 14 175/56 H 90 L 06/03/17 07:27 06/03/17 08:24 06/03/17 08:24 06/03/17 07:27 06/03/17 08:24 Intake & Output 06/02/17 06/03/17 06/04/17 06:59 06:59 06:59 Intake Total 740 Balance 740 Weight 73.4 kg General appearance: PRESENT: no acute distress Eye exam: PRESENT: conjunctiva pink. ABSENT: scleral icterus Ear exam: PRESENT: normal external ear exam Mouth exam: PRESENT: moist, tongue midline Neck exam: ABSENT: JVD Respiratory exam: PRESENT: decreased breath sounds - In the right base. ABSENT : rales, rhonchi, wheezes Cardiovascular exam: PRESENT: RRR. ABSENT: diastolic murmur, rubs, systolic murmur GI/Abdominal exam: PRESENT: normal bowel sounds, soft. ABSENT: distended, guarding, mass, organolmegaly, rebound, tenderness Extremities exam: ABSENT: calf tenderness, clubbing, pedal edema Neurological exam: PRESENT: alert, awake, oriented to person, oriented to place , CN II-XII grossly intact. ABSENT: oriented to time, oriented to situation, motor sensory deficit Psychiatric exam: PRESENT: appropriate affect Skin exam: PRESENT: dry, intact, warm. ABSENT: cyanosis, rash Results Laboratory Results: 06/03/17 07:04 06/03/17 07:04 06/03/17 06/03/17 06/03/17 02:08 07:04 07:04 WBC 8.8 RBC 3.70 L Hgb 10.5 L Hct 32.6 L MCV 88 MCH 28.4 MCHC 32.3 RDW 15.3 H Plt Count 154 Seg Neutrophils % Not Reportable Lymphocytes % Not Reportable Monocytes % Not Reportable Eosinophils % Not Reportable Basophils % Not Reportable Absolute Neutrophils Not Reportable Absolute Lymphocytes Not Reportable Absolute Monocytes Not Reportable Absolute Eosinophils Not Reportable Absolute Basophils Not Reportable Sodium 141.5 Potassium 4.6 Chloride 101 Carbon Dioxide 26 Anion Gap 15 BUN 36 H Creatinine 1.15 Est GFR ( Amer) > 60 Est GFR (Non-Af Amer) > 60 Glucose 436 H* Lactic Acid 2.0 Calcium 9.2 Impressions: Chest X-Ray 06/02/17 20:36 IMPRESSION: Acute right lower lobe pneumonia. Left lower lobe pneumonia with chronic left pleural effusion. Question aspiration complex. Assessment & Plan - Diagnosis (1) COPD with acute exacerbation Is this a current diagnosis for this admission?: Yes Plan: Continue with antibiotics and nebulizers. (2) Pneumonia Qualifiers: Pneumonia type: due to unspecified organism Laterality: right Lung location: lower lobe of lung Qualified Code(s): J18.1 - Lobar pneumonia, unspecified organism Is this a current diagnosis for this admission?: Yes Plan: Patient is on Rocephin and Zithromax. (3) Bilateral pleural effusion Is this a current diagnosis for this admission?: Yes Plan: Is not clear whether the effusion is related to the congestive heart failure or his pneumonia. (4) Chronic combined systolic and diastolic congestive heart failure Is this a current diagnosis for this admission?: Yes Plan: Patient appears to be euvolemic at this time. (5) CAD (coronary artery disease) Qualifiers: Coronary Disease-Associated Artery/Lesion type: [place] artery [place] vs. transplanted heart: [place] heart Associated angina: without angina Qualified Code(s): I25.10 - Atherosclerotic heart disease of [place] coronary artery without angina pectoris Is this a current diagnosis for this admission?: Yes Plan: He denies any chest pain. (6) Atrial fibrillation Is this a current diagnosis for this admission?: Yes Plan: Patient is rate control. He is on anticoagulation. 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 (8) Gastroesophageal reflux disease Qualifiers: Esophagitis presence: without esophagitis Qualified Code(s): K21.9 - Gastro -esophageal reflux disease without esophagitis Is this a current diagnosis for this admission?: Yes Plan: Asymptomatic (9) Hypertension Qualifiers: Hypertension type: essential hypertension Qualified Code(s): I10 - Essential (primary) hypertension Is this a current diagnosis for this admission?: Yes Plan: Continue with [facility]. - Time Time Spent with patient: 25-34 minutes - Inpatient Certification Medical Necessity: Need for IV Antibiotics
[2017-06-03] MEDS ORDERED: LACTULOSE 10 GM PO PRN (14:06)
[2017-06-03] MEDS ORDERED: (PENDING PHARMACY ID) (Doxepin Hcl [Silenor] 6 MG) PO PRN (14:06)
[2017-06-03] MEDS ORDERED: SERTRALINE HCL 20 MG PO SCH ×2 (15:00→18:00)
[2017-06-03] MEDS: OXYCODONE HCL IR 5 MG TABLET PO PRN (15:41)
[2017-06-03] MEDS: ATORVASTATIN CALCIUM 40 MG TABLET PO SCH (21:18)
[2017-06-03] MEDS: ROPINIROLE HCL 0.25 MG TABLET PO SCH (21:18)
[2017-06-03] MEDS: AZITHROMYCIN 500 MG in DEXTROSE 5%-WATER 250 ML IV SCH (21:19)
[2017-06-03] MEDS ORDERED: (PENDING PHARMACY ID) (Doxepin Hcl [Silenor] 6 MG) PO SCH (22:00)
[2017-06-03] MEDS ORDERED: (PENDING PHARMACY ID) (Sennosides [Senna] 8.6 MG) PO SCH (22:00)
[2017-06-03] MEDS ORDERED: (PENDING PHARMACY ID) (Sennosides [Senna] 17.2 MG) PO SCH (22:00)
[2017-06-04] MEDS: LORAZEPAM 0.5 MG TABLET PO PRN (00:24)
[2017-06-04] MEDS: OXYCODONE HCL IR 5 MG TABLET PO PRN ×3 (00:29→18:04)
[2017-06-04 05:05] LABS: ABSOLUTE LYMPHOCYTES (AUTO) 0.5 10^3/uL (0.5-4.7); ABSOLUTE MONOCYTES (AUTO) 0.5 10^3/uL (0.1-1.4); ABSOLUTE NEUT (AUTO) 8.3 10^3/uL (1.7-8.2); EOSINOPHILS % (AUTO) 0.1 % (0-6); HEMATOCRIT 30.1 % (37.9-51.0); HEMOGLOBIN 9.8 g/dL (13.5-17.0); HGB HCT DIFFERENCE -0.7; LYMPHOCYTES % (AUTO) 5.2 % (13-45); MEAN CORPUSCULAR HEMOGLOBIN 28.5 pg (27.0-33.4); MEAN CORPUSCULAR HGB CONC 32.6 g/dL (32.0-36.0); MEAN CORPUSCULAR VOLUME 88 fl (80-97); MONOCYTES % (AUTO) 5.4 % (3-13); RED BLOOD COUNT 3.44 10^6/uL (4.35-5.55); RED CELL DISTRIBUTION WIDTH 14.8 % (11.5-14.0); SEGMENTED NEUTROPHILS % (AUTO) 89.3 % (42-78); WHITE BLOOD COUNT 9.3 10^3/uL (4.0-10.5)
[2017-06-04] MEDS: HEPARIN SOD (PORCINE) 5,000 UNIT/ML 1 ML SYRINGE SUBCUT SCH ×2 (05:13→14:17)
[2017-06-04 05:22] LABS: ANION GAP 11 (5-19); BLOOD UREA NITROGEN 36 mg/dL (7-20); CALCIUM 9.2 mg/dL (8.4-10.2); CARBON DIOXIDE 29 mmol/L (22-30); CHLORIDE 101 mmol/L (98-107); GLUCOSE 292 mg/dL (75-110); SODIUM 140.9 mmol/L (137-145)
[2017-06-04] MEDS: IPRATROPIUM/ALBUTEROL 0.5-2.5 MG/3 ML AMPUL NEB SCH ×2 (07:35→15:59)
[2017-06-04] MEDS: INSULIN LISPRO 100 UNIT/ML 3 ML VIAL SUBCUT PRN ×3 (08:18→17:31)
[2017-06-04] MEDS: FUROSEMIDE 40 MG TABLET PO SCH ×2 (09:16→17:31)
[2017-06-04] MEDS: LANSOPRAZOLE 15 MG TAB.RAP.DR PO SCH (09:18)
[2017-06-04] MEDS: SITAGLIPTIN PHOSPHATE 50 MG TABLET PO SCH ×2 (09:18)
[2017-06-04] MEDS: AMLODIPINE BESYLATE 5 MG TABLET PO SCH (09:19)
[2017-06-04] MEDS: LEVETIRACETAM 500 MG TABLET PO SCH ×2 (09:19→21:49)
[2017-06-04] MEDS: ROPINIROLE HCL 0.25 MG TABLET PO SCH ×2 (09:19→21:50)
[2017-06-04] MEDS: BUDESONIDE/FORMOTEROL 160-4.5 MCG 60 PUFF/6 GM MDI IH SCH ×2 (09:20→17:31)
[2017-06-04] MEDS: LOSARTAN POTASSIUM 25 MG TABLET PO SCH ×2 (09:20→21:46)
[2017-06-04] MEDS: APIXABAN 2.5 MG TABLET PO SCH ×2 (09:20→21:48)
[2017-06-04] MEDS: CEFTRIAXONE 1 GM/D5W RTU 1 GM/50 ML RTUPB IV SCH (09:21)
[2017-06-04] MEDS ORDERED: (PENDING PHARMACY ID) (Linagliptin [Tradjenta] 5 MG) PO SCH (10:00)
--- NOTE | 2017-06-04 10:40 | PDOC PROGRESS REPORT ---
Subjective Progress Note for:: 06/04/17 Subjective:: Patient complains of a nonproductive cough this morning. Physical Exam Vital Signs: Temp Pulse Resp BP Pulse Ox 97.9 F 58 L 16 146/54 H 95 06/04/17 04:36 06/04/17 07:35 06/04/17 07:35 06/04/17 04:36 06/04/17 07:35 Intake & Output 06/03/17 06/04/17 06/05/17 06:59 06:59 06:59 Intake Total 740 405 Balance 740 405 Weight 73.4 kg 71.4 kg General appearance: PRESENT: no acute distress, well-developed, well-nourished Eye exam: PRESENT: conjunctiva pink. ABSENT: scleral icterus Mouth exam: PRESENT: moist, tongue midline Neck exam: ABSENT: JVD Respiratory exam: PRESENT: clear to auscultation brandy. ABSENT: rales, rhonchi, wheezes Cardiovascular exam: PRESENT: RRR. ABSENT: diastolic murmur, rubs, systolic murmur GI/Abdominal exam: PRESENT: normal bowel sounds, soft. ABSENT: distended, guarding, mass, organolmegaly, rebound, tenderness Extremities exam: ABSENT: calf tenderness, clubbing, pedal edema Neurological exam: PRESENT: alert, awake, oriented to person, oriented to place , CN II-XII grossly intact. ABSENT: motor sensory deficit Psychiatric exam: PRESENT: appropriate affect Skin exam: PRESENT: dry, intact, warm. ABSENT: cyanosis, rash Results Laboratory Results: 06/04/17 04:20 06/04/17 04:20 06/04/17 06/04/17 04:20 04:20 WBC 9.3 RBC 3.44 L Hgb 9.8 L Hct 30.1 L MCV 88 MCH 28.5 MCHC 32.6 RDW 14.8 H Plt Count 159 Seg Neutrophils % 89.3 H Lymphocytes % 5.2 L Monocytes % 5.4 Eosinophils % 0.1 Basophils % 0.0 Absolute Neutrophils 8.3 H Absolute Lymphocytes 0.5 Absolute Monocytes 0.5 Absolute Eosinophils 0.0 Absolute Basophils 0.0 Sodium 140.9 Potassium 4.0 Chloride 101 Carbon Dioxide 29 Anion Gap 11 BUN 36 H Creatinine 1.10 Est GFR ( Amer) > 60 Est GFR (Non-Af Amer) > 60 Glucose 292 H Calcium 9.2 Impressions: Chest X-Ray 06/02/17 20:36 IMPRESSION: Acute right lower lobe pneumonia. Left lower lobe pneumonia with chronic left pleural effusion. Question aspiration complex. Assessment & Plan - Diagnosis (1) COPD with acute exacerbation Is this a current diagnosis for this admission?: Yes Plan: Continue with antibiotics and nebulizers. (2) Pneumonia Qualifiers: Pneumonia type: due to unspecified organism Laterality: right Lung location: lower lobe of lung Qualified Code(s): J18.1 - Lobar pneumonia, unspecified organism Is this a current diagnosis for this admission?: Yes Plan: Patient is on Rocephin and Zithromax. Blood cultures are growing out gram- positive from one blood culture (3) Bilateral pleural effusion Is this a current diagnosis for this admission?: Yes Plan: Is not clear whether the effusion is related to the congestive heart failure or his pneumonia. (4) Chronic combined systolic and diastolic congestive heart failure Is this a current diagnosis for this admission?: Yes Plan: Patient appears to be euvolemic at this time. (5) CAD (coronary artery disease) Qualifiers: Coronary Disease-Associated Artery/Lesion type: [place] artery [place] vs. transplanted heart: [place] heart Associated angina: without angina Qualified Code(s): I25.10 - Atherosclerotic heart disease of [place] coronary artery without angina pectoris Is this a current diagnosis for this admission?: Yes Plan: He denies any chest pain. (6) Atrial fibrillation Is this a current diagnosis for this admission?: Yes Plan: Patient is rate control. He is on anticoagulation. (7) Diabetes mellitus, type II Qualifiers: Diabetes mellitus complication status: with kidney complications Diabetes mellitus complication detail: with chronic kidney disease Diabetes mellitus long term acute care registered nurse insulin use: without snf use Chronic kidney disease stage: stage 3 (moderate) Qualified Code(s): E11.22 - Type 2 diabetes mellitus with diabetic chronic kidney disease Is this a current diagnosis for this admission?: Yes Plan: Continue with sliding scale insulin. (8) Gastroesophageal reflux disease Qualifiers: Esophagitis presence: without esophagitis Qualified Code(s): K21.9 - Gastro -esophageal reflux disease without esophagitis Is this a current diagnosis for this admission?: Yes Plan: Asymptomatic (9) Hypertension Qualifiers: Hypertension type: essential hypertension Qualified Code(s): I10 - Essential (primary) hypertension Is this a current diagnosis for this admission?: Yes Plan: Continue with [facility]. - Time Time Spent with patient: 25-34 minutes - Inpatient Certification Medical Necessity: Need for IV Antibiotics
[2017-06-04] MEDS: ATORVASTATIN CALCIUM 40 MG TABLET PO SCH (21:47)
[2017-06-04] MEDS: SENNOSIDES/DOCUSATE 8.6-50 MG 1 EACH TABLET PO SCH (21:47)
[2017-06-04] MEDS: AZITHROMYCIN 500 MG in DEXTROSE 5%-WATER 250 ML IV SCH (21:50)
[2017-06-05] MEDS: IPRATROPIUM/ALBUTEROL 0.5-2.5 MG/3 ML AMPUL NEB SCH ×4 (00:01→23:38)
[2017-06-05] MEDS: OXYCODONE HCL IR 5 MG TABLET PO PRN ×4 (01:45→22:08)
[2017-06-05] MEDS: LORAZEPAM 0.5 MG TABLET PO PRN (01:45)
[2017-06-05 06:59] LABS: ABSOLUTE EOSINOPHILS # (AUTO) 0.2 10^3/uL (0.0-0.6); ABSOLUTE LYMPHOCYTES (AUTO) 0.7 10^3/uL (0.5-4.7); ABSOLUTE MONOCYTES (AUTO) 0.6 10^3/uL (0.1-1.4); ABSOLUTE NEUT (AUTO) 6.1 10^3/uL (1.7-8.2); BASOPHILS % (AUTO) 0.3 % (0-2); EOSINOPHILS % (AUTO) 2.7 % (0-6); HEMATOCRIT 30.9 % (37.9-51.0); HEMOGLOBIN 10.1 g/dL (13.5-17.0); HGB HCT DIFFERENCE -0.6; LYMPHOCYTES % (AUTO) 9.3 % (13-45); MEAN CORPUSCULAR HEMOGLOBIN 28.5 pg (27.0-33.4); MEAN CORPUSCULAR HGB CONC 32.6 g/dL (32.0-36.0); MEAN CORPUSCULAR VOLUME 87 fl (80-97); MONOCYTES % (AUTO) 7.7 % (3-13); RED BLOOD COUNT 3.54 10^6/uL (4.35-5.55); RED CELL DISTRIBUTION WIDTH 15.2 % (11.5-14.0); WHITE BLOOD COUNT 7.7 10^3/uL (4.0-10.5)
[2017-06-05 07:17] LABS: ANION GAP 9 (5-19); BLOOD UREA NITROGEN 34 mg/dL (7-20); CALCIUM 8.7 mg/dL (8.4-10.2); CARBON DIOXIDE 33 mmol/L (22-30); CHLORIDE 99 mmol/L (98-107); GLUCOSE 224 mg/dL (75-110); POTASSIUM 3.7 mmol/L (3.6-5.0); SODIUM 140.8 mmol/L (137-145)
[2017-06-05] MEDS: INSULIN LISPRO 100 UNIT/ML 3 ML VIAL SUBCUT PRN ×2 (09:14→12:23)
[2017-06-05] MEDS: LANSOPRAZOLE 15 MG TAB.RAP.DR PO SCH (09:14)
[2017-06-05] MEDS: FUROSEMIDE 40 MG TABLET PO SCH ×2 (09:14→17:34)
[2017-06-05] MEDS: AMLODIPINE BESYLATE 5 MG TABLET PO SCH (09:14)
[2017-06-05] MEDS: SITAGLIPTIN PHOSPHATE 50 MG TABLET PO SCH ×2 (09:14)
[2017-06-05] MEDS: LOSARTAN POTASSIUM 25 MG TABLET PO SCH ×2 (09:14→22:08)
[2017-06-05] MEDS: ROPINIROLE HCL 0.25 MG TABLET PO SCH ×2 (09:15→22:07)
[2017-06-05] MEDS: LEVETIRACETAM 500 MG TABLET PO SCH ×2 (09:15→22:08)
[2017-06-05] MEDS: BUDESONIDE/FORMOTEROL 160-4.5 MCG 60 PUFF/6 GM MDI IH SCH ×2 (09:15→17:35)
[2017-06-05] MEDS: CEFTRIAXONE 1 GM/D5W RTU 1 GM/50 ML RTUPB IV SCH (09:15)
--- NOTE | 2017-06-05 10:39 | PDOC PROGRESS REPORT ---
Subjective Progress Note for:: 06/05/17 Subjective:: Patient complains of a nonproductive cough and shortness of breath. Physical Exam Vital Signs: Temp Pulse Resp BP Pulse Ox 98.1 F 59 L 17 142/46 H 95 06/04/17 23:26 06/05/17 08:05 06/05/17 08:05 06/04/17 23:26 06/05/17 00:00 Intake & Output 06/04/17 06/05/17 06/06/17 06:59 06:59 06:59 Intake Total 405 1610 Balance 405 1610 Weight 71.4 kg 71.4 kg General appearance: PRESENT: no acute distress Eye exam: PRESENT: conjunctiva pink. ABSENT: scleral icterus Mouth exam: PRESENT: moist, tongue midline Neck exam: ABSENT: JVD Respiratory exam: PRESENT: decreased breath sounds - Decreased in the left base.. ABSENT: rales, rhonchi, wheezes Cardiovascular exam: PRESENT: RRR. ABSENT: diastolic murmur, rubs, systolic murmur GI/Abdominal exam: PRESENT: normal bowel sounds, soft. ABSENT: distended, guarding, mass, organolmegaly, rebound, tenderness Extremities exam: ABSENT: calf tenderness, clubbing, pedal edema Neurological exam: PRESENT: alert, awake, oriented to person, oriented to place , oriented to time, oriented to situation, CN II-XII grossly intact. ABSENT: motor sensory deficit Psychiatric exam: PRESENT: appropriate affect Skin exam: PRESENT: dry, intact, warm. ABSENT: cyanosis, rash Results Laboratory Results: 06/05/17 06:39 06/05/17 06:39 06/05/17 06/05/17 06:39 06:39 WBC 7.7 RBC 3.54 L Hgb 10.1 L Hct 30.9 L MCV 87 MCH 28.5 MCHC 32.6 RDW 15.2 H Plt Count 177 Seg Neutrophils % 80.0 H Lymphocytes % 9.3 L Monocytes % 7.7 Eosinophils % 2.7 Basophils % 0.3 Absolute Neutrophils 6.1 Absolute Lymphocytes 0.7 Absolute Monocytes 0.6 Absolute Eosinophils 0.2 Absolute Basophils 0.0 Sodium 140.8 Potassium 3.7 Chloride 99 Carbon Dioxide 33 H Anion Gap 9 BUN 34 H Creatinine 1.20 Est GFR ( Amer) > 60 Est GFR (Non-Af Amer) 58 L Glucose 224 H Calcium 8.7 Assessment & Plan - Diagnosis (1) COPD with acute exacerbation Is this a current diagnosis for this admission?: Yes Plan: Continue with antibiotics and nebulizers. (2) Pneumonia Qualifiers: Pneumonia type: due to unspecified organism Laterality: right Lung location: lower lobe of lung Qualified Code(s): J18.1 - Lobar pneumonia, unspecified organism Is this a current diagnosis for this admission?: Yes Plan: Patient is on Rocephin and Zithromax. Blood cultures are growing out staph epi. This most likely is contaminant. (3) Bilateral pleural effusion Is this a current diagnosis for this admission?: Yes Plan: Is not clear whether the effusion is related to the congestive heart failure or his pneumonia. We will ask radiology to do a thoracentesis. He is on anticoagulation which we will need to hold prior to the thoracentesis. Will get decubitus films today to see that if the effusion is free-flowing. (4) Chronic combined systolic and diastolic congestive heart failure Is this a current diagnosis for this admission?: Yes Plan: Patient appears to be euvolemic at this time. (5) CAD (coronary artery disease) Qualifiers: Coronary Disease-Associated Artery/Lesion type: [place] artery [place] vs. transplanted heart: [place] heart Associated angina: without angina Qualified Code(s): I25.10 - Atherosclerotic heart disease of [place] coronary artery without angina pectoris Is this a current diagnosis for this admission?: Yes Plan: He denies any chest pain. (6) Atrial fibrillation Is this a current diagnosis for this admission?: Yes Plan: Patient is rate control. He is on anticoagulation which will be held until after the thoracentesis. (7) Diabetes mellitus, type II Qualifiers: Diabetes mellitus complication status: with kidney complications Diabetes mellitus complication detail: with chronic kidney disease Diabetes mellitus fdc insulin use: without marine oil terminal superintendent use Chronic kidney disease stage: stage 3 (moderate) Qualified Code(s): E11.22 - Type 2 diabetes mellitus with diabetic chronic kidney disease Is this a current diagnosis for this admission?: Yes Plan: Continue with sliding scale insulin. (8) Gastroesophageal reflux disease Qualifiers: Esophagitis presence: without esophagitis Qualified Code(s): K21.9 - Gastro -esophageal reflux disease without esophagitis Is this a current diagnosis for this admission?: Yes Plan: Asymptomatic (9) Hypertension Qualifiers: Hypertension type: essential hypertension Qualified Code(s): I10 - Essential (primary) hypertension Is this a current diagnosis for this admission?: Yes Plan: Continue with [facility]. - Time Time Spent with patient: 25-34 minutes - Inpatient Certification Medical Necessity: Need for IV Antibiotics
--- NOTE | 2017-06-05 10:43 | RADIOLOGY REPORT (SQ) ---
EXAM DESCRIPTION: CHEST SPECIAL VIEW COMPLETED DATE/TIME: 06/05/2017 10:31 am REASON FOR STUDY: needs decub film to eval effusion COMPARISON: CT chest 02/11/2017 Chest films 02/17/2017, 02/19/2017, 02/20/2017, 06/02/2017 NUMBER OF VIEWS: One view. TECHNIQUE: Right and left side down decubitus chest radiograph. LIMITATIONS: None. FINDINGS: Bilateral chest decubitus views were obtained. On the left side, a moderate freely flowin g pleural effusion is present. Moderate left basilar airspace disease atelectasis versus pneumonia. On the right side, a trace pleural effusion layers dependently. There is moderate airspace disease i n the right lower lobe worrisome for pneumonia. 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 Stable cardiomegaly. No gross pneumothorax. IMPRESSION: Moderate-sized left freely flowing or occlusion. Trace right pleural fluid Bilateral lower lobe airspace disease right greater than left worrisome for pneumonia TECHNICAL DOCUMENTATION: JOB ID: [id number] [employer]- All Rights Reserved
[2017-06-05] MEDS ORDERED: MINERAL OIL ENEMA 133 ML PR PRN (10:56)
[2017-06-05 11:51] LABS: PROTHROMBIN TIME 15.9 SEC (11.4-15.4)
[2017-06-05 11:52] LABS: PARTIAL THROMBOPLASTIN TIME 37.7 SEC (23.5-35.8)
--- NOTE | 2017-06-05 13:43 | Physician Advisory Note ---
Physician Advisor ProgressNote .: Pursuant to the plan for [facility], I have reviewed the medical record for this patient. Physician Advisor Statement: Please consider documentin. "Acute on chronic Hypoxemic Respiratory Failure" (Sats 80s at SNF before neb - on usual amount of O2? - , has been having increased O2 needs above baseline, unable to lie flat due o SOB. (+) CAREY, crackles...) 2. "RLL PNA, likely due to " ( GNeg given from SNF, or GPositive, or .... ?) thanks! CK
[2017-06-05] MEDS: SENNOSIDES/DOCUSATE 8.6-50 MG 1 EACH TABLET PO SCH (22:07)
[2017-06-05] MEDS: ATORVASTATIN CALCIUM 40 MG TABLET PO SCH (22:08)
[2017-06-05] MEDS: AZITHROMYCIN 500 MG in DEXTROSE 5%-WATER 250 ML IV SCH (22:09)
[2017-06-06] MEDS: LORAZEPAM 0.5 MG TABLET PO PRN (04:10)
[2017-06-06] MEDS: OXYCODONE HCL IR 5 MG TABLET PO PRN ×2 (04:10→17:28)
[2017-06-06 05:32] LABS: ABSOLUTE EOSINOPHILS # (AUTO) 0.3 10^3/uL (0.0-0.6); ABSOLUTE LYMPHOCYTES (AUTO) 0.9 10^3/uL (0.5-4.7); ABSOLUTE MONOCYTES (AUTO) 0.6 10^3/uL (0.1-1.4); ABSOLUTE NEUT (AUTO) 5.9 10^3/uL (1.7-8.2); BASOPHILS % (AUTO) 0.3 % (0-2); EOSINOPHILS % (AUTO) 3.6 % (0-6); HEMATOCRIT 33.3 % (37.9-51.0); HEMOGLOBIN 10.8 g/dL (13.5-17.0); HGB HCT DIFFERENCE -0.9; LYMPHOCYTES % (AUTO) 11.4 % (13-45); MEAN CORPUSCULAR HEMOGLOBIN 28.5 pg (27.0-33.4); MEAN CORPUSCULAR HGB CONC 32.4 g/dL (32.0-36.0); MEAN CORPUSCULAR VOLUME 88 fl (80-97); RED BLOOD COUNT 3.79 10^6/uL (4.35-5.55); SEGMENTED NEUTROPHILS % (AUTO) 76.7 % (42-78); WHITE BLOOD COUNT 7.6 10^3/uL (4.0-10.5)
[2017-06-06 05:58] LABS: ANION GAP 13 (5-19); BLOOD UREA NITROGEN 32 mg/dL (7-20); CALCIUM 8.8 mg/dL (8.4-10.2); CARBON DIOXIDE 31 mmol/L (22-30); CHLORIDE 97 mmol/L (98-107); CREATININE RESULT 1.13 mg/dL (0.52-1.25); GLUCOSE 182 mg/dL (75-110); POTASSIUM 3.8 mmol/L (3.6-5.0); SODIUM 141.4 mmol/L (137-145)
[2017-06-06] MEDS: IPRATROPIUM/ALBUTEROL 0.5-2.5 MG/3 ML AMPUL NEB SCH ×3 (08:05→23:33)
--- NOTE | 2017-06-06 10:37 | PDOC PROGRESS REPORT ---
Subjective Progress Note for:: 06/06/17 Subjective:: Patient complains of a nonproductive cough and shortness of breath. Physical Exam Vital Signs: Temp Pulse Resp BP Pulse Ox 98.7 F 61 20 152/43 H 97 06/06/17 08:19 06/06/17 08:19 06/06/17 08:19 06/06/17 08:38 06/06/17 08:19 Intake & Output 06/05/17 06/06/17 06/07/17 06:59 06:59 06:59 Intake Total 1610 620 Balance 1610 620 Weight 71.4 kg 71.4 kg General appearance: PRESENT: no acute distress Eye exam: PRESENT: conjunctiva pink. ABSENT: scleral icterus Mouth exam: PRESENT: moist, tongue midline Neck exam: ABSENT: JVD Respiratory exam: PRESENT: decreased breath sounds - Decreased breath sounds in the bases.. ABSENT: rales, rhonchi, wheezes Cardiovascular exam: PRESENT: RRR. ABSENT: diastolic murmur, rubs, systolic murmur GI/Abdominal exam: PRESENT: normal bowel sounds, soft. ABSENT: distended, guarding, mass, organolmegaly, rebound, tenderness Extremities exam: ABSENT: calf tenderness, clubbing, pedal edema Neurological exam: PRESENT: alert, awake, oriented to person, oriented to place , oriented to time, oriented to situation, CN II-XII grossly intact. ABSENT: motor sensory deficit Psychiatric exam: PRESENT: appropriate affect Skin exam: PRESENT: dry, intact, warm. ABSENT: cyanosis, rash Results Laboratory Results: 06/06/17 05:18 06/06/17 05:18 06/06/17 06/06/17 05:18 05:18 WBC 7.6 RBC 3.79 L Hgb 10.8 L Hct 33.3 L MCV 88 MCH 28.5 MCHC 32.4 RDW 15.0 H Plt Count 201 Seg Neutrophils % 76.7 Lymphocytes % 11.4 L Monocytes % 8.0 Eosinophils % 3.6 Basophils % 0.3 Absolute Neutrophils 5.9 Absolute Lymphocytes 0.9 Absolute Monocytes 0.6 Absolute Eosinophils 0.3 Absolute Basophils 0.0 Sodium 141.4 Potassium 3.8 Chloride 97 L Carbon Dioxide 31 H Anion Gap 13 BUN 32 H Creatinine 1.13 Est GFR ( Amer) > 60 Est GFR (Non-Af Amer) > 60 Glucose 182 H Calcium 8.8 Impressions: Chest X-Ray 06/05/17 00:00 IMPRESSION: Moderate-sized left freely flowing or occlusion. Trace right pleural fluid Bilateral lower lobe airspace disease right greater than left worrisome for pneumonia Assessment & Plan - Diagnosis (1) Acute and chronic respiratory failure with hypoxia Is this a current diagnosis for this admission?: Yes Plan: Secondary to acute COPD. (2) COPD with acute exacerbation Is this a current diagnosis for this admission?: Yes Plan: Continue with antibiotics and nebulizers. (3) Pneumonia Qualifiers: Pneumonia type: due to unspecified organism Laterality: right Lung location: lower lobe of lung Qualified Code(s): J18.1 - Lobar pneumonia, unspecified organism Is this a current diagnosis for this admission?: Yes Plan: Patient is on Rocephin and Zithromax. Blood cultures are growing out staph epi. This most likely is contaminant. Right lower lobe pneumonia most likely secondary to gram-positive cocci. (4) Bilateral pleural effusion Is this a current diagnosis for this admission?: Yes Plan: Is not clear whether the effusion is related to the congestive heart failure or his pneumonia. We will ask radiology to do a thoracentesis. He is on anticoagulation which we will need to hold prior to the thoracentesis. (5) Chronic combined systolic and diastolic congestive heart failure Is this a current diagnosis for this admission?: Yes Plan: Patient appears to be euvolemic at this time. (6) CAD (coronary artery disease) Qualifiers: Coronary Disease-Associated Artery/Lesion type: [place] artery [place] vs. transplanted heart: [place] heart Associated angina: without angina Qualified Code(s): I25.10 - Atherosclerotic heart disease of [place] coronary artery without angina pectoris Is this a current diagnosis for this admission?: Yes Plan: He denies any chest pain. (7) Atrial fibrillation Is this a current diagnosis for this admission?: Yes Plan: Patient is rate control. He is on anticoagulation which will be held until after the thoracentesis. (8) Diabetes mellitus, type II Qualifiers: Diabetes mellitus complication status: with kidney complications Diabetes mellitus complication detail: with chronic kidney disease Diabetes mellitus intermission coordinator insulin use: without intermission coordinator use Chronic kidney disease stage: stage 3 (moderate) Qualified Code(s): E11.22 - Type 2 diabetes mellitus with diabetic chronic kidney disease Is this a current diagnosis for this admission?: Yes Plan: Continue with sliding scale insulin. (9) Gastroesophageal reflux disease Qualifiers: Esophagitis presence: without esophagitis Qualified Code(s): K21.9 - Gastro -esophageal reflux disease without esophagitis Is this a current diagnosis for this admission?: Yes Plan: Asymptomatic (10) Hypertension Qualifiers: Hypertension type: essential hypertension Qualified Code(s): I10 - Essential (primary) hypertension Is this a current diagnosis for this admission?: Yes Plan: Continue with Norvasc. - Time Time Spent with patient: 25-34 minutes - Inpatient Certification Medical Necessity: Need for IV Antibiotics
[2017-06-06] MEDS: LANSOPRAZOLE 15 MG TAB.RAP.DR PO SCH (10:44)
[2017-06-06] MEDS: ROPINIROLE HCL 0.25 MG TABLET PO SCH ×2 (10:44→21:23)
[2017-06-06] MEDS: BUDESONIDE/FORMOTEROL 160-4.5 MCG 60 PUFF/6 GM MDI IH SCH ×2 (10:44→17:26)
[2017-06-06] MEDS: FUROSEMIDE 40 MG TABLET PO SCH ×2 (10:45→17:26)
[2017-06-06] MEDS: SITAGLIPTIN PHOSPHATE 50 MG TABLET PO SCH ×2 (10:45)
[2017-06-06] MEDS: CEFTRIAXONE 1 GM/D5W RTU 1 GM/50 ML RTUPB IV SCH (10:46)
[2017-06-06] MEDS: LOSARTAN POTASSIUM 25 MG TABLET PO SCH ×2 (10:46→21:22)
[2017-06-06] MEDS: LEVETIRACETAM 500 MG TABLET PO SCH ×2 (10:46→21:22)
[2017-06-06] MEDS: AMLODIPINE BESYLATE 5 MG TABLET PO SCH (10:46)
[2017-06-06] MEDS: LACTULOSE SYRUP 20 GM/30 ML UDCUP PO PRN ×2 (10:47→17:27)
--- NOTE | 2017-06-06 12:28 | RADIOLOGY REPORT (SQ) ---
EXAM DESCRIPTION: CHEST SINGLE VIEW COMPLETED DATE/TIME: 06/06/2017 11:44 am REASON FOR STUDY: S/P LT THORACENTESIS COMPARISON: Chest decubitus view 06/05/2017, PA chest 06/02/2017 CT angio chest 02/11/2017 EXAM PARAMETERS: NUMBER OF VIEWS: One view. TECHNIQUE: Single frontal radiographic view of the chest acquired. RADIATION DOSE: NA LIMITATIONS: None. FINDINGS: LUNGS AND PLEURA: Immediate post thoracentesis left chest with removal of 1 L of fluid. N o left-sided pneumothorax. There are increased interstitial markings at the right lung base, right basilar pneumonia could not b e excluded. Increased interstitial markings left lung base with left retrocardiac consolidation likely atelectasi s. MEDIASTINUM AND HILAR STRUCTURES: No masses. Contour normal. HEART AND VASCULAR STRUCTURES: Stable cardiomegaly. Old CABG. BONES: Osteoporotic with old healed left proximal humerus fracture and old bilateral healed rib fract ures. HARDWARE: None in the chest. OTHER: No other significant finding. IMPRESSION: No pneumothorax post left thoracentesis TECHNICAL DOCUMENTATION: JOB ID: [id number]
--- NOTE | 2017-06-06 12:30 | RADIOLOGY REPORT (SQ) ---
EXAM DESCRIPTION: U/S THORACENTESIS WITH IMAGING COMPLETED DATE/TIME: 06/06/2017 11:49 am REASON FOR STUDY: LEFT PLEURAL EFFUSION COMPARISON: Thoracentesis 02/17/2017 Chest films 06/05/2017, 06/02/2017, 02/19/2017 LIMITATIONS: None. PROCEDURE: Procedure, risks, benefit, and alternative explained to patient. Consent was obtained fr om a family member. The left chest wall was marked using ultrasound guidance. A time-out was called for correct marking verification. Chest prepped and draped using sterile technique. Local anesthesi a achieved using 6 ml of 1% lidocaine injection. A 6fr Safe-T- Centesis set was introduced into the posterior left pleural space. Fluid was aspirated. The catheter was removed and the entry site was covered with sterile bandage. No immediate complications noted. Post procedure chest x-ray dictated separately demonstrates no left pneumothorax Images acquired during the procedure were stored on PACS. FINDINGS: ENTRY SITE: Left posterior pleural space FLUID VOLUME: 1,050 mL FLUID ANALYSIS: Clear straw-colored fluid. Fluid was sent for testing as per Dr. Julian OTHER: No immediate complications on post procedure chest x-ray IMPRESSION: SUCCESSFUL THORACENTESIS USING ULTRASOUND GUIDANCE. COMMENT: Patient medication list reviewed: Yes- Quality ID# [id number]:Eligible professional attests to doc umenting in the medical record they obtained, updated, or reviewed the patient's current medications. Quality ID #[id number]: Final reports for procedures using fluoroscopy that document radiation exposure sona elizabeth, or exposure time and number of fluorographic images (if radiation exposure indices are not avail able) TECHNICAL DOCUMENTATION: JOB ID: [id number] [employer]- All Rights Reserved
[2017-06-06 12:38] LABS: FLUID APPEARANCE HAZY; FLUID TYPE PLEURAL
[2017-06-06 12:39] LABS: FLUID RBC AVERAGE 183.5; FLUID RBC DILUENT USED NONE USED; FLUID RBC DILUTION FACTOR 1; FLUID RBC SIDE 1 175; FLUID RBC SIDE 2 192; TOTAL RBC SQUARES COUNTED FLD 25
--- NOTE | 2017-06-06 14:31 | RADIOLOGY REPORT (SQ) ---
EXAM DESCRIPTION: CHEST SINGLE VIEW COMPLETED DATE/TIME: 06/06/2017 1:57 pm REASON FOR STUDY: 2 HOURS S/P LT THORACENTESIS COMPARISON: Left ultrasound-guided thoracentesis earlier today Prior chest films 09/13/2016, 02/08/2017, 02/17/2017, 06/02/2017, 06/05/2017, 06/06/2017 EXAM PARAMETERS: NUMBER OF VIEWS: One view. TECHNIQUE: Single frontal radiographic view of the chest acquired. RADIATION DOSE: NA LIMITATIONS: None. FINDINGS: LUNGS AND PLEURA: 2 hours post left thoracentesis. No pneumothorax. There is trace residual pleural fluid in the left lateral and right lateral costophrenic sulci. Upper lobes are hyperlucent, mid and lower lungs demonstrate alveolar and interstitial opacities, unc hanged from 06/06/2017 and 06/05/2017. MEDIASTINUM AND HILAR STRUCTURES: No masses. Contour normal. HEART AND VASCULAR STRUCTURES: Stable cardiomegaly and old CABG. BONES: Osteoporotic with old healed left proximal humeral metaphysis fracture HARDWARE: None in the chest. OTHER: No other significant finding. IMPRESSION: No pneumothorax 2 hours post left thoracentesis. Persistent air bronchograms in the left retrocardiac region from consolidation. Stable alveolar and interstitial infiltrate at the right base. TECHNICAL DOCUMENTATION: JOB ID: [id number]
[2017-06-06] MEDS: ATORVASTATIN CALCIUM 40 MG TABLET PO SCH (21:21)
[2017-06-06] MEDS: AZITHROMYCIN 250 MG TABLET PO SCH (21:21)
[2017-06-06] MEDS: SENNOSIDES/DOCUSATE 8.6-50 MG 1 EACH TABLET PO SCH (21:22)
[2017-06-07] MEDS: OXYCODONE HCL IR 5 MG TABLET PO PRN ×3 (05:14→17:22)
[2017-06-07] MEDS: LACTULOSE SYRUP 20 GM/30 ML UDCUP PO PRN (05:14)
[2017-06-07 06:12] LABS: ABSOLUTE EOSINOPHILS # (AUTO) 0.2 10^3/uL (0.0-0.6); ABSOLUTE LYMPHOCYTES (AUTO) 0.7 10^3/uL (0.5-4.7); ABSOLUTE MONOCYTES (AUTO) 0.7 10^3/uL (0.1-1.4); ABSOLUTE NEUT (AUTO) 5.8 10^3/uL (1.7-8.2); BASOPHILS % (AUTO) 0.4 % (0-2); EOSINOPHILS % (AUTO) 2.8 % (0-6); HEMATOCRIT 33.3 % (37.9-51.0); HEMOGLOBIN 10.8 g/dL (13.5-17.0); HGB HCT DIFFERENCE -0.9; LYMPHOCYTES % (AUTO) 9.8 % (13-45); MEAN CORPUSCULAR HEMOGLOBIN 28.2 pg (27.0-33.4); MEAN CORPUSCULAR HGB CONC 32.3 g/dL (32.0-36.0); MEAN CORPUSCULAR VOLUME 87 fl (80-97); MONOCYTES % (AUTO) 8.8 % (3-13); RED BLOOD COUNT 3.81 10^6/uL (4.35-5.55); SEGMENTED NEUTROPHILS % (AUTO) 78.2 % (42-78); WHITE BLOOD COUNT 7.4 10^3/uL (4.0-10.5)
[2017-06-07 06:21] LABS: ANION GAP 9 (5-19); BLOOD UREA NITROGEN 28 mg/dL (7-20); CARBON DIOXIDE 33 mmol/L (22-30); CHLORIDE 99 mmol/L (98-107); CREATININE RESULT 1.12 mg/dL (0.52-1.25); GLUCOSE 178 mg/dL (75-110); POTASSIUM 3.8 mmol/L (3.6-5.0); SODIUM 140.5 mmol/L (137-145)
[2017-06-07] MEDS: IPRATROPIUM/ALBUTEROL 0.5-2.5 MG/3 ML AMPUL NEB SCH ×3 (07:50→23:37)
[2017-06-07] MEDS: INSULIN LISPRO 100 UNIT/ML 3 ML VIAL SUBCUT PRN ×2 (08:11→12:36)
[2017-06-07] MEDS: LOSARTAN POTASSIUM 25 MG TABLET PO SCH ×2 (09:41→23:07)
[2017-06-07] MEDS: CEFTRIAXONE 1 GM/D5W RTU 1 GM/50 ML RTUPB IV SCH (09:41)
[2017-06-07] MEDS: LANSOPRAZOLE 15 MG TAB.RAP.DR PO SCH (09:41)
[2017-06-07] MEDS: SITAGLIPTIN PHOSPHATE 50 MG TABLET PO SCH ×2 (09:41)
[2017-06-07] MEDS: LEVETIRACETAM 500 MG TABLET PO SCH ×2 (09:42→23:08)
[2017-06-07] MEDS: AMLODIPINE BESYLATE 5 MG TABLET PO SCH (09:42)
[2017-06-07] MEDS: FUROSEMIDE 40 MG TABLET PO SCH ×2 (09:42→17:22)
[2017-06-07] MEDS: ROPINIROLE HCL 0.25 MG TABLET PO SCH ×2 (09:42→23:10)
[2017-06-07] MEDS: BUDESONIDE/FORMOTEROL 160-4.5 MCG 60 PUFF/6 GM MDI IH SCH ×2 (09:42→17:22)
--- NOTE | 2017-06-07 10:32 | PDOC PROGRESS REPORT ---
Subjective Progress Note for:: 06/07/17 Subjective:: Denies any complaints. Physical Exam Vital Signs: Temp Pulse Resp BP Pulse Ox 98.7 F 65 16 153/57 H 94 06/07/17 08:10 06/07/17 08:10 06/07/17 08:10 06/07/17 08:10 06/07/17 08:10 Intake & Output 06/06/17 06/07/17 06/08/17 06:59 06:59 06:59 Intake Total 620 420 Output Total 750 Balance 620 -330 Weight 71.4 kg 71.4 kg General appearance: PRESENT: no acute distress Eye exam: PRESENT: conjunctiva pink. ABSENT: scleral icterus Mouth exam: PRESENT: moist, tongue midline Neck exam: ABSENT: JVD Respiratory exam: PRESENT: rhonchi - Coarse rhonchi in the left basilar area. ABSENT: rales, wheezes Cardiovascular exam: PRESENT: RRR. ABSENT: diastolic murmur, rubs, systolic murmur GI/Abdominal exam: PRESENT: normal bowel sounds, soft. ABSENT: distended, guarding, mass, organolmegaly, rebound, tenderness Extremities exam: ABSENT: calf tenderness, clubbing, pedal edema Neurological exam: PRESENT: alert, awake, oriented to person, oriented to place. ABSENT: oriented to time, oriented to situation Psychiatric exam: PRESENT: appropriate affect Skin exam: PRESENT: dry, intact, warm. ABSENT: cyanosis, rash Results Laboratory Results: 06/07/17 05:46 06/07/17 05:46 06/06/17 06/07/17 06/07/17 11:25 05:46 05:46 WBC 7.4 RBC 3.81 L Hgb 10.8 L Hct 33.3 L MCV 87 MCH 28.2 MCHC 32.3 RDW 15.0 H Plt Count 183 Seg Neutrophils % 78.2 H Lymphocytes % 9.8 L Monocytes % 8.8 Eosinophils % 2.8 Basophils % 0.4 Absolute Neutrophils 5.8 Absolute Lymphocytes 0.7 Absolute Monocytes 0.7 Absolute Eosinophils 0.2 Absolute Basophils 0.0 Sodium 140.5 Potassium 3.8 Chloride 99 Carbon Dioxide 33 H Anion Gap 9 BUN 28 H Creatinine 1.12 Est GFR ( Amer) > 60 Est GFR (Non-Af Amer) > 60 Glucose 178 H Calcium 9.0 Fluid Type PLEURAL Fluid Source LUNG Fluid Color YELLOW Fluid Appearance HAZY Fluid Viscosity SLIGHTLY VISCOUS Fluid WBC 1120 Fluid RBC 1835 Impressions: Chest X-Ray 06/06/17 00:00 IMPRESSION: No pneumothorax 2 hours post left thoracentesis. Persistent air bronchograms in the left retrocardiac region from consolidation. Stable alveolar and interstitial infiltrate at the right base. Thoracentesis Ultrasound 06/06/17 00:00 IMPRESSION: SUCCESSFUL THORACENTESIS USING ULTRASOUND GUIDANCE. Assessment & Plan - Diagnosis (1) Acute and chronic respiratory failure with hypoxia Is this a current diagnosis for this admission?: Yes Plan: Secondary to acute COPD. (2) COPD with acute exacerbation Is this a current diagnosis for this admission?: Yes Plan: Continue with antibiotics and nebulizers. (3) Pneumonia Qualifiers: Pneumonia type: due to unspecified organism Laterality: right Lung location: lower lobe of lung Qualified Code(s): J18.1 - Lobar pneumonia, unspecified organism Is this a current diagnosis for this admission?: Yes Plan: Patient is on Rocephin and Zithromax. Blood cultures are growing out staph epi. This most likely is contaminant. Right lower lobe pneumonia most likely secondary to gram-positive cocci. (4) Bilateral pleural effusion Is this a current diagnosis for this admission?: Yes Plan: Is not clear whether the effusion is related to the congestive heart failure or his pneumonia. Patient had thoracentesis yesterday and reports he feels much better today. (5) Chronic combined systolic and diastolic congestive heart failure Is this a current diagnosis for this admission?: Yes Plan: Patient appears to be euvolemic at this time. (6) CAD (coronary artery disease) Qualifiers: Coronary Disease-Associated Artery/Lesion type: [place] artery [place] vs. transplanted heart: [place] heart Associated angina: without angina Qualified Code(s): I25.10 - Atherosclerotic heart disease of [place] coronary artery without angina pectoris Is this a current diagnosis for this admission?: Yes Plan: He denies any chest pain. (7) Atrial fibrillation Is this a current diagnosis for this admission?: Yes Plan: Patient is rate control. Will restart anticoagulation as he has completed his thoracentesis. (8) Diabetes mellitus, type II Qualifiers: Diabetes mellitus complication status: with kidney complications Diabetes mellitus complication detail: with chronic kidney disease Diabetes mellitus intermediate insulin use: without intermediate use Chronic kidney disease stage: stage 3 (moderate) Qualified Code(s): E11.22 - Type 2 diabetes mellitus with diabetic chronic kidney disease Is this a current diagnosis for this admission?: Yes Plan: Continue with sliding scale insulin. (9) Gastroesophageal reflux disease Qualifiers: Esophagitis presence: without esophagitis Qualified Code(s): K21.9 - Gastro -esophageal reflux disease without esophagitis Is this a current diagnosis for this admission?: Yes Plan: Asymptomatic (10) Hypertension Qualifiers: Hypertension type: essential hypertension Qualified Code(s): I10 - Essential (primary) hypertension Is this a current diagnosis for this admission?: Yes Plan: Continue with Norvasc. - Time Time Spent with patient: 25-34 minutes - Inpatient Certification Medical Necessity: Need Close Monitoring Due to Risk of Patient Decompensation
[2017-06-07] MEDS ORDERED: APIXABAN 2.5 MG TABLET PO ONE (11:15)
[2017-06-07] MEDS ORDERED: METOCLOPRAMIDE HCL ORAL SOLN 10 MG/10 ML UDCUP PO PRN (12:49)
[2017-06-07] MEDS ORDERED: MAG HYDROX/AL HYDROX/SIMETH SUSP 30 ML UDCUP PO PRN (12:49)
[2017-06-07] MEDS ORDERED: LIDOCAINE 2% VISCOUS SOLN 20 ML UDCUP PO PRN (12:49)
[2017-06-07] MEDS ORDERED: LIDOCAINE 2% VISCOUS SOLN 20 ML UDCUP PO ONE (13:30)
[2017-06-07] MEDS ORDERED: METOCLOPRAMIDE HCL ORAL SOLN 10 MG/10 ML UDCUP PO ONE (13:30)
[2017-06-07] MEDS ORDERED: MAG HYDROX/AL HYDROX/SIMETH SUSP 30 ML UDCUP PO ONE (13:30)
[2017-06-07] MEDS: ATORVASTATIN CALCIUM 40 MG TABLET PO SCH (23:06)
[2017-06-07] MEDS: AZITHROMYCIN 250 MG TABLET PO SCH (23:06)
[2017-06-07] MEDS: SENNOSIDES/DOCUSATE 8.6-50 MG 1 EACH TABLET PO SCH (23:07)
[2017-06-07] MEDS: APIXABAN 2.5 MG TABLET PO SCH (23:11)
[2017-06-08 06:18] LABS: ABSOLUTE BASOPHILS # (AUTO) 0.1 10^3/uL (0.0-0.2); ABSOLUTE EOSINOPHILS # (AUTO) 0.3 10^3/uL (0.0-0.6); ABSOLUTE LYMPHOCYTES (AUTO) 0.8 10^3/uL (0.5-4.7); ABSOLUTE MONOCYTES (AUTO) 0.8 10^3/uL (0.1-1.4); BASOPHILS % (AUTO) 0.8 % (0-2); EOSINOPHILS % (AUTO) 2.8 % (0-6); HEMATOCRIT 32.7 % (37.9-51.0); HEMOGLOBIN 10.9 g/dL (13.5-17.0); LYMPHOCYTES % (AUTO) 8.1 % (13-45); MEAN CORPUSCULAR HEMOGLOBIN 28.4 pg (27.0-33.4); MEAN CORPUSCULAR HGB CONC 33.3 g/dL (32.0-36.0); MEAN CORPUSCULAR VOLUME 85 fl (80-97); MONOCYTES % (AUTO) 7.7 % (3-13); RED BLOOD COUNT 3.84 10^6/uL (4.35-5.55); RED CELL DISTRIBUTION WIDTH 15.3 % (11.5-14.0); SEGMENTED NEUTROPHILS % (AUTO) 80.6 % (42-78); WHITE BLOOD COUNT 9.9 10^3/uL (4.0-10.5)
[2017-06-08 06:30] LABS: ANION GAP 10 (5-19); BLOOD UREA NITROGEN 32 mg/dL (7-20); CALCIUM 9.1 mg/dL (8.4-10.2); CARBON DIOXIDE 33 mmol/L (22-30); CHLORIDE 99 mmol/L (98-107); CREATININE RESULT 1.27 mg/dL (0.52-1.25); GLUCOSE 165 mg/dL (75-110); POTASSIUM 4.5 mmol/L (3.6-5.0); SODIUM 142.3 mmol/L (137-145)
[2017-06-08] MEDS: LACTULOSE SYRUP 20 GM/30 ML UDCUP PO PRN (06:49)
[2017-06-08] MEDS: IPRATROPIUM/ALBUTEROL 0.5-2.5 MG/3 ML AMPUL NEB SCH ×2 (07:48→16:05)
--- NOTE | 2017-06-08 09:58 | PDOC PROGRESS REPORT ---
Subjective Progress Note for:: 06/08/17 Subjective:: Denies any complaints. Physical Exam Vital Signs: Temp Pulse Resp BP Pulse Ox 98.7 F 79 18 158/49 H 95 06/08/17 08:17 06/08/17 08:17 06/08/17 08:17 06/08/17 08:17 06/08/17 08:17 Intake & Output 06/07/17 06/08/17 06/09/17 06:59 06:59 06:59 Intake Total 420 1330 Output Total 750 700 Balance -330 630 Weight 71.4 kg 71.4 kg General appearance: PRESENT: no acute distress Eye exam: PRESENT: conjunctiva pink. ABSENT: scleral icterus Mouth exam: PRESENT: moist, tongue midline Neck exam: ABSENT: JVD Respiratory exam: PRESENT: clear to auscultation brandy. ABSENT: rales, rhonchi, wheezes Cardiovascular exam: PRESENT: RRR. ABSENT: diastolic murmur, rubs, systolic murmur GI/Abdominal exam: PRESENT: normal bowel sounds, soft. ABSENT: distended, guarding, mass, organolmegaly, rebound, tenderness Extremities exam: ABSENT: calf tenderness, clubbing, pedal edema Neurological exam: PRESENT: alert, awake, oriented to person, oriented to place. ABSENT: oriented to time, oriented to situation Psychiatric exam: PRESENT: appropriate affect Skin exam: PRESENT: dry, intact, warm. ABSENT: cyanosis, rash Results Laboratory Results: 06/08/17 05:58 06/08/17 05:58 06/08/17 06/08/17 05:58 05:58 WBC 9.9 RBC 3.84 L Hgb 10.9 L Hct 32.7 L MCV 85 MCH 28.4 MCHC 33.3 RDW 15.3 H Plt Count 195 Seg Neutrophils % 80.6 H Lymphocytes % 8.1 L Monocytes % 7.7 Eosinophils % 2.8 Basophils % 0.8 Absolute Neutrophils 8.0 Absolute Lymphocytes 0.8 Absolute Monocytes 0.8 Absolute Eosinophils 0.3 Absolute Basophils 0.1 Sodium 142.3 Potassium 4.5 Chloride 99 Carbon Dioxide 33 H Anion Gap 10 BUN 32 H Creatinine 1.27 H Est GFR ( Amer) > 60 Est GFR (Non-Af Amer) 54 L Glucose 165 H Calcium 9.1 06/03/17 02:08 Blood Blood Culture - Final NO GROWTH IN 5 DAYS Impressions: Chest X-Ray 06/06/17 00:00 IMPRESSION: No pneumothorax 2 hours post left thoracentesis. Persistent air bronchograms in the left retrocardiac region from consolidation. Stable alveolar and interstitial infiltrate at the right base. Thoracentesis Ultrasound 06/06/17 00:00 IMPRESSION: SUCCESSFUL THORACENTESIS USING ULTRASOUND GUIDANCE. Assessment & Plan - Diagnosis (1) Acute and chronic respiratory failure with hypoxia Is this a current diagnosis for this admission?: Yes Plan: Secondary to acute COPD. (2) COPD with acute exacerbation Is this a current diagnosis for this admission?: Yes Plan: Continue with antibiotics and nebulizers. (3) Pneumonia Qualifiers: Pneumonia type: due to unspecified organism Laterality: right Lung location: lower lobe of lung Qualified Code(s): J18.1 - Lobar pneumonia, unspecified organism Is this a current diagnosis for this admission?: Yes Plan: Patient is on Rocephin and Zithromax. Blood cultures are growing out staph epi. This most likely is contaminant. Right lower lobe pneumonia most likely secondary to gram-positive cocci. (4) Bilateral pleural effusion Is this a current diagnosis for this admission?: Yes Plan: Is not clear whether the effusion is related to the congestive heart failure or his pneumonia. Patient had a thoracentesis (5) Chronic combined systolic and diastolic congestive heart failure Is this a current diagnosis for this admission?: Yes Plan: Patient appears to be euvolemic at this time. (6) CAD (coronary artery disease) Qualifiers: Coronary Disease-Associated Artery/Lesion type: [place] artery [place] vs. transplanted heart: [place] heart Associated angina: without angina Qualified Code(s): I25.10 - Atherosclerotic heart disease of [place] coronary artery without angina pectoris Is this a current diagnosis for this admission?: Yes Plan: He denies any chest pain. (7) Atrial fibrillation Is this a current diagnosis for this admission?: Yes Plan: Patient is rate control. Will restart anticoagulation as he has completed his thoracentesis. (8) Diabetes mellitus, type II Qualifiers: Diabetes mellitus complication status: with kidney complications Diabetes mellitus complication detail: with chronic kidney disease Diabetes mellitus terminal makeup operator insulin use: without terminal makeup operator use Chronic kidney disease stage: stage 3 (moderate) Qualified Code(s): E11.22 - Type 2 diabetes mellitus with diabetic chronic kidney disease Is this a current diagnosis for this admission?: Yes Plan: Continue with sliding scale insulin. (9) Gastroesophageal reflux disease Qualifiers: Esophagitis presence: without esophagitis Qualified Code(s): K21.9 - Gastro -esophageal reflux disease without esophagitis Is this a current diagnosis for this admission?: Yes Plan: Asymptomatic (10) Hypertension Qualifiers: Hypertension type: essential hypertension Qualified Code(s): I10 - Essential (primary) hypertension Is this a current diagnosis for this admission?: Yes Plan: Continue with Norvasc. (11) ARF (acute renal failure) Is this a current diagnosis for this admission?: Yes Plan: The patient has been getting Lasix and appears to be slightly volume depleted. We will decrease Lasix to once daily and follow his creatinine. - Time Time Spent with patient: 25-34 minutes - Inpatient Certification Medical Necessity: Need Close Monitoring Due to Risk of Patient Decompensation, Need for IV Antibiotics
[2017-06-08] MEDS ORDERED: APIXABAN 2.5 MG TABLET PO SCH (10:00)
[2017-06-08] MEDS: APIXABAN 2.5 MG TABLET PO SCH ×2 (10:49→21:45)
[2017-06-08] MEDS: SITAGLIPTIN PHOSPHATE 50 MG TABLET PO SCH ×2 (10:50→10:56)
[2017-06-08] MEDS: ROPINIROLE HCL 0.25 MG TABLET PO SCH ×2 (10:50→21:45)
[2017-06-08] MEDS: FUROSEMIDE 40 MG TABLET PO SCH (10:51)
[2017-06-08] MEDS: LOSARTAN POTASSIUM 25 MG TABLET PO SCH ×2 (10:52→21:44)
[2017-06-08] MEDS: LEVETIRACETAM 500 MG TABLET PO SCH ×2 (10:52→21:45)
[2017-06-08] MEDS: LANSOPRAZOLE 15 MG TAB.RAP.DR PO SCH (10:52)
[2017-06-08] MEDS: AMLODIPINE BESYLATE 5 MG TABLET PO SCH (10:52)
[2017-06-08] MEDS: CEFTRIAXONE 1 GM/D5W RTU 1 GM/50 ML RTUPB IV SCH (10:53)
[2017-06-08] MEDS: BUDESONIDE/FORMOTEROL 160-4.5 MCG 60 PUFF/6 GM MDI IH SCH ×2 (10:53→18:02)
[2017-06-08] MEDS: INSULIN LISPRO 100 UNIT/ML 3 ML VIAL SUBCUT PRN (12:34)
[2017-06-08] MEDS: OXYCODONE HCL IR 5 MG TABLET PO PRN (15:35)
[2017-06-08] MEDS: SENNOSIDES/DOCUSATE 8.6-50 MG 1 EACH TABLET PO SCH (21:40)
[2017-06-08] MEDS: ATORVASTATIN CALCIUM 40 MG TABLET PO SCH (21:45)
[2017-06-08] MEDS: AZITHROMYCIN 250 MG TABLET PO SCH (21:45)
[2017-06-09] MEDS: OXYCODONE HCL IR 5 MG TABLET PO PRN (00:27)
[2017-06-09] MEDS: IPRATROPIUM/ALBUTEROL 0.5-2.5 MG/3 ML AMPUL NEB SCH ×2 (00:34→08:54)
[2017-06-09 06:22] LABS: ANION GAP 10 (5-19); BLOOD UREA NITROGEN 32 mg/dL (7-20); CARBON DIOXIDE 34 mmol/L (22-30); CHLORIDE 100 mmol/L (98-107); CREATININE RESULT 1.26 mg/dL (0.52-1.25); GLUCOSE 150 mg/dL (75-110); POTASSIUM 4.6 mmol/L (3.6-5.0)
[2017-06-09 08:35] VITALS: BP 175/48
--- NOTE | 2017-06-09 08:55 | PDOC TRANSFER SUMMARY ---
General - Admit/Disc Date/PCP Admission Date/Primary Care Provider: 06/03/17 00:58 TRISTON GARCIA MD Discharge Date: 06/09/17 - Discharge Diagnosis (1) Acute and chronic respiratory failure with hypoxia Is this a current diagnosis for this admission?: Yes Summary: Secondary to pneumonia and congestive heart failure. (2) COPD with acute exacerbation Is this a current diagnosis for this admission?: Yes (3) Pneumonia Is this a current diagnosis for this admission?: Yes Summary: Patient had a large pleural effusion that was drained. Patient has staph epi from 1 culture which is felt to be contaminant. (4) Bilateral pleural effusion Is this a current diagnosis for this admission?: Yes Summary: Status post thoracentesis on the left with removal of 1 L. (5) Chronic combined systolic and diastolic congestive heart failure Is this a current diagnosis for this admission?: Yes Summary: Patient had been on Lasix twice daily however developed elevated creatinine and his Lasix dose was decreased to once daily. (6) CAD (coronary artery disease) Is this a current diagnosis for this admission?: Yes (7) Atrial fibrillation Is this a current diagnosis for this admission?: Yes (8) Diabetes mellitus, type II Is this a current diagnosis for this admission?: Yes (9) Gastroesophageal reflux disease Is this a current diagnosis for this admission?: Yes (10) Hypertension Is this a current diagnosis for this admission?: Yes (11) ARF (acute renal failure) Is this a current diagnosis for this admission?: Yes Summary: Patient has elevated creatinine secondary to diuretic therapy. His Lasix was decreased to once daily instead of twice daily. His creatinine is still elevated but is stable. He most likely will have problems with chronic renal failure because of his congestive heart failure and the need for diuretic therapy. - Additional Information Resuscitation Status: Do Not Resuscitate Discharge Diet: Cardiac, Diabetic Discharge Activity: Activity As Tolerated Home Medications: Acetaminophen [Tylenol 325 mg Tablet] 650 mg PO Q6HP PRN 06/03/17 Amlodipine Besylate [Norvasc 5 mg Tablet] 5 mg PO DAILY 06/03/17 Apixaban [Eliquis 2.5 mg Tablet] 2.5 mg PO Q12 06/03/17 Atorvastatin Calcium [Lipitor 40 mg Tablet] 40 mg PO QHS 06/03/17 Budesonide/Formoterol Fumarate [Symbicort HFA 160-4.5 mcg Inhaler 6 gm] 1 puff IH Q12 06/03/17 Doxepin HCl [Silenor] 6 mg PO HSP PRN 06/03/17 Furosemide [Lasix 40 mg Tablet] 40 mg PO QAM 06/03/17 Gabapentin [Neurontin 100 mg Capsule] 100 mg PO BID@06,14 06/03/17 Gabapentin [Neurontin 300 mg Capsule] 300 mg PO QHS 06/03/17 Ipratropium/Albuterol Sulfate [Duoneb 3 ml Ampul] 3 ml NEB RTQ8HP PRN 06/03/17 Lactulose [Enulose 10 gm/15 mL Oral Solution] 10 gm PO BIDP PRN 06/03/17 Levetiracetam [Keppra 500 mg Tablet] 500 mg PO Q12 06/03/17 Linagliptin [Tradjenta] 5 mg PO DAILY 06/03/17 Omeprazole 20 mg PO DAILY 06/03/17 Ropinirole HCl [Requip 0.25 mg Tablet] 0.25 mg PO Q12 06/03/17 Sennosides [Senna] 8.6 mg PO QHS 06/03/17 Sertraline HCl 20 mg PO QPM 06/03/17 Cefuroxime Axetil [Ceftin 500 mg Tablet] 500 mg PO BID #16 tablet 06/09/17 Lorazepam [Ativan 0.5 mg Tablet] 0.5 mg PO Q8HP PRN #10 tablet 06/09/17 Losartan Potassium [Cozaar 25 mg Tablet] 25 mg PO Q12 tablet 06/09/17 Oxycodone HCl [Oxy-Ir 5 mg Tablet] 5 mg PO Q6HP PRN #10 tablet 06/09/17 History of Present Illness Admission Date/PCP: 06/03/17 00:58 TRISTON GARCIA MD History of Present Illness: KRISTINE DE ANDA is a 86 year old male with a past medical history of diabetes, COPD, atrial fibrillation, diastolic heart failure with moderate mitral and tricuspid regurgitation and recurrent pleural effusions who is a long-term [facility] resident and noted by staff to have a nonproductive cough. He is referred to the hospital for evaluation. In the emergency room he was found to have bilateral pleural effusions with atelectasis versus pneumonia he started on empiric antibiotics and referred to the hospitalist for admission. The patient is a poor historian and unable to provide significant details. He denies chest pain nausea vomiting or palpitations. Hospital Course Hospital Course: 86-year-old gentleman who presented with shortness of breath and a nonproductive cough. Patient was evaluated in emergency room and found to have bilateral effusions with possible pneumonia. Patient was started on empiric antibiotics and was continued on Lasix. The patient because of a large pleural effusion underwent a thoracentesis on the left with removal of 1 L of fluid. This has helped his breathing dramatically. The patient has been on broad- spectrum antibiotics although cultures are essentially negative. There was one blood culture that grew out staph epi however this is felt most likely represent contamination and is not a pathogen. Patient will complete a total of 14 days of antibiotics in the form of Ceftin as an outpatient. The patient' s congestive heart failure was treated with Lasix. He had been on 40 mg twice daily however his creatinine started to increase and it was cut down to 40 mg daily. His creatinine is still elevated but has stabilized. The patient most likely will have to tolerate an elevated creatinine to maintain him to be euvolemic given his congestive heart failure. Patient also has atrial fibrillation and is on Eliquis. Eliquis was held because of his thoracentesis but has been restarted. His other medical problems including diabetes and gastroesophageal reflux disease were stable during this hospitalization. Patient is transferred back to [facility]. Physical Exam Vital Signs: Temp Pulse Resp BP Pulse Ox 97.7 F 63 18 175/48 H 97 06/09/17 08:23 06/09/17 08:23 06/09/17 08:23 06/09/17 08:23 06/09/17 08:23 Intake & Output 06/08/17 06/09/17 06/10/17 06:59 06:59 06:59 Intake Total 1330 550 Output Total 700 Balance 630 550 Weight 71.4 kg 71.4 kg General appearance: PRESENT: no acute distress Eye exam: PRESENT: conjunctiva pink. ABSENT: scleral icterus Mouth exam: PRESENT: moist, tongue midline Neck exam: ABSENT: JVD Respiratory exam: PRESENT: rhonchi - Coarse rhonchi on the left.. ABSENT: rales , wheezes Cardiovascular exam: PRESENT: irregular rhythm. ABSENT: diastolic murmur, rubs , systolic murmur GI/Abdominal exam: PRESENT: normal bowel sounds, soft. ABSENT: distended, guarding, mass, organolmegaly, rebound, tenderness Extremities exam: PRESENT: pedal edema - Trace pedal edema.. ABSENT: calf tenderness, clubbing Neurological exam: PRESENT: alert, awake, oriented to person, oriented to place , oriented to time, oriented to situation, CN II-XII grossly intact, other - Patient is very hard of hearing.. ABSENT: motor sensory deficit Psychiatric exam: PRESENT: appropriate affect Skin exam: PRESENT: dry, intact, warm. ABSENT: cyanosis, rash Results Laboratory Results: 06/08/17 05:58 06/09/17 05:51 06/06/17 06/06/17 06/06/17 11:25 11:25 11:25 Sodium Potassium Chloride Carbon Dioxide Anion Gap BUN Creatinine Est GFR ( Amer) Est GFR (Non-Af Amer) Glucose Calcium Fluid Glucose 254 Fluid Total Protein 2.5 Fluid LDH 70 06/09/17 05:51 Sodium 144.0 Potassium 4.6 Chloride 100 Carbon Dioxide 34 H Anion Gap 10 BUN 32 H Creatinine 1.26 H Est GFR ( Amer) > 60 Est GFR (Non-Af Amer) 54 L Glucose 150 H Calcium 9.0 Fluid Glucose Fluid Total Protein Fluid LDH Impressions: Chest X-Ray 06/06/17 00:00 IMPRESSION: No pneumothorax 2 hours post left thoracentesis. Persistent air bronchograms in the left retrocardiac region from consolidation. Stable alveolar and interstitial infiltrate at the right base. Thoracentesis Ultrasound 06/06/17 00:00 IMPRESSION: SUCCESSFUL THORACENTESIS USING ULTRASOUND GUIDANCE. Transfer Plan - Disposition Transfer Plan: Patient is to be transferred to [facility]. - Time Spent with Patient Time spent with patient: Greater than 30 Minutes Qualifiers PATEINT BEING DISCHARGED WITH ANY OF THE FOLLOWING DIAGNOSIS?: No Plan Discharge Plan: We will transfer to [facility]. Follow with primary care doctor in 2 weeks. Time Spent: Greater than 30 Minutes
[2017-06-09] MEDS: FUROSEMIDE 40 MG TABLET PO SCH (09:49)
[2017-06-09] MEDS: APIXABAN 2.5 MG TABLET PO SCH (09:49)
[2017-06-09] MEDS: LOSARTAN POTASSIUM 25 MG TABLET PO SCH (09:49)
[2017-06-09] MEDS: LANSOPRAZOLE 15 MG TAB.RAP.DR PO SCH (09:49)
[2017-06-09] MEDS: SITAGLIPTIN PHOSPHATE 50 MG TABLET PO SCH ×2 (09:49)
[2017-06-09] MEDS: LEVETIRACETAM 500 MG TABLET PO SCH (09:49)
[2017-06-09] MEDS: BUDESONIDE/FORMOTEROL 160-4.5 MCG 60 PUFF/6 GM MDI IH SCH (09:50)
[2017-06-09] MEDS: CEFTRIAXONE 1 GM/D5W RTU 1 GM/50 ML RTUPB IV SCH (09:50)
[2017-06-09] MEDS: AMLODIPINE BESYLATE 5 MG TABLET PO SCH (09:50)
[2017-06-09] MEDS: ROPINIROLE HCL 0.25 MG TABLET PO SCH (11:21)
== END 2017-06-09 12:55 | DRG 189 ==
LOC: ER 20:32 → EH 06-03 00:58 → UNDOADMIN 06-03 01:41 → 5 06-03 03:44
PROVIDERS: ADMIT Internal Medicine; ATTEND Internal Medicine
PROC: 0W9B3ZZ Drainage of Left Pleural Cavity, Percutaneous Approach (ICD-10-PCS; principal; 2017-06-06)
PROC: BB4BZZZ Ultrasonography of Pleura (ICD-10-PCS; 2017-06-06)
DX: J96.21 Acute and chronic respiratory failure with hypoxia (principal); J15.29 Pneumonia due to other staphylococcus; J44.0 Chronic obstructive pulmonary disease with (acute) lower respiratory infection; I50.42 Chronic combined systolic (congestive) and diastolic (congestive) heart failure; J91.8 Pleural effusion in other conditions classified elsewhere; I13.0 Hypertensive heart and chronic kidney disease with heart failure and stage 1 through stage 4 chronic kidney disease, or unspecified chronic kidney disease; J44.1 Chronic obstructive pulmonary disease with (acute) exacerbation; N17.9 Acute kidney failure, unspecified; Z66 Do not resuscitate; I48.2 Chronic atrial fibrillation; N18.3 Chronic kidney disease, stage 3 (moderate); E11.22 Type 2 diabetes mellitus with diabetic chronic kidney disease; E78.5 Hyperlipidemia, unspecified; K21.9 Gastro-esophageal reflux disease without esophagitis; M19.90 Unspecified osteoarthritis, unspecified site; K59.00 Constipation, unspecified; I25.2 Old myocardial infarction; Z95.5 Presence of coronary angioplasty implant and graft; Z95.1 Presence of aortocoronary bypass graft; Z79.01 Long term (current) use of anticoagulants; Z79.4 Long term (current) use of insulin; Z79.51 Long term (current) use of inhaled steroids; Z79.899 Other long term (current) drug therapy
CPT/HCPCS: 32555; 36415; 71010; 71035; 80048; 80053; 81001; 82550; 82553; 82945; 82962; 83605; 83615; 83880; 84157; 84484; 85025; 85610; 85730; 87040; 87070; 87075; 87077; 87186; 87205; 88305; 88341; 88342; 89050; 93005; 93010; 94640; 94667; 94668; 94799; 96365; 96367; 96375; 99284; J0456; J0696; J1644; J1815; J2543; J2930; J3370; J3490; J7030; J7060; J7620

== ENCOUNTER 2017-11-01 16:54 | Emergency (ER) | payer MEDICARE, MEDICAID ==
[2017-11-01 17:29] LABS: ABSOLUTE BASOPHILS # (AUTO) 0.1 10^3/uL (0.0-0.2); ABSOLUTE EOSINOPHILS # (AUTO) 0.1 10^3/uL (0.0-0.6); ABSOLUTE LYMPHOCYTES (AUTO) 1.1 10^3/uL (0.5-4.7); ABSOLUTE MONOCYTES (AUTO) 0.7 10^3/uL (0.1-1.4); ABSOLUTE NEUT (AUTO) 17.4 10^3/uL (1.7-8.2); BASOPHILS % (AUTO) 0.5 % (0-2); EOSINOPHILS % (AUTO) 0.4 % (0-6); HEMATOCRIT 39.7 % (37.9-51.0); HEMOGLOBIN 12.1 g/dL (13.5-17.0); LYMPHOCYTES % (AUTO) 5.6 % (13-45); MEAN CORPUSCULAR HEMOGLOBIN 25.3 pg (27.0-33.4); MEAN CORPUSCULAR HGB CONC 30.6 g/dL (32.0-36.0); MEAN CORPUSCULAR VOLUME 83 fl (80-97); MONOCYTES % (AUTO) 3.8 % (3-13); PLATELET COUNT 152 10^3/uL (150-450); RED BLOOD COUNT 4.79 10^6/uL (4.35-5.55); RED CELL DISTRIBUTION WIDTH 17.3 % (11.5-14.0); SEGMENTED NEUTROPHILS % (AUTO) 89.7 % (42-78); TOTAL CELLS COUNTED % (AUTO) 100 %; WHITE BLOOD COUNT 19.4 10^3/uL (4.0-10.5)
--- NOTE | 2017-11-01 17:44 | RADIOLOGY REPORT (SQ) ---
EXAM DESCRIPTION: CHEST SINGLE VIEW COMPLETED DATE/TIME: 11/01/2017 5:35 pm REASON FOR STUDY: bed 11 db COMPARISON: 06/06/2017, 06/02/2017, 02/20/2017, and 02/19/2017 chest radiographs EXAM PARAMETERS: NUMBER OF VIEWS: One view. TECHNIQUE: Single frontal radiographic view of the chest acquired. RADIATION DOSE: NA LIMITATIONS: None. FINDINGS: LUNGS AND PLEURA: Apparent recurrent left lower lobe and right middle lobe airspace opacit ies with moderate left-sided pleural effusion. No pneumothorax. MEDIASTINUM AND HILAR STRUCTURES: No masses. Contour normal. HEART AND VASCULAR STRUCTURES: Heart normal in size. Normal vasculature. BONES: No acute findings. HARDWARE: None in the chest. OTHER: No other significant finding. IMPRESSION: In the appropriate clinical setting, findings are consistent with multi lobar pneumonia, recurrent. TECHNICAL DOCUMENTATION: JOB ID: [id number] [employer]- All Rights Reserved
[2017-11-01 17:49] LABS: ALANINE AMINOTRANSFERASE 24 U/L (21-72); ALBUMIN 3.2 g/dL (3.5-5.0); ALKALINE PHOSPHATASE 119 U/L (38-126); ANION GAP 11 (5-19); ASPARTATE AMINO TRANSFERASE 25 U/L (17-59); BILIRUBIN,DIRECT 0.5 mg/dL (0.0-0.4); BILIRUBIN,TOTAL 0.7 mg/dL (0.2-1.3); BLOOD UREA NITROGEN 53 mg/dL (7-20); CALCIUM 9.4 mg/dL (8.4-10.2); CARBON DIOXIDE 34 mmol/L (22-30); CHLORIDE 98 mmol/L (98-107); CREATINE KINASE 29 U/L (55-170); GLUCOSE 308 mg/dL (75-110); POTASSIUM 5.7 mmol/L (3.6-5.0); SODIUM 143.2 mmol/L (137-145); TOTAL PROTEIN 6.7 g/dL (6.3-8.2)
[2017-11-01 18:01] LABS: CREATINE KINASE MB 1.87 ng/mL (<4.55)
[2017-11-01 18:11] LABS: TROPONIN I 0.05 ng/mL
[2017-11-01] MEDS ORDERED: CEFTRIAXONE INJ 1000 MG VIAL IV ONE (18:25)
--- NOTE | 2017-11-01 18:35 | ER Document Report ---
ED Medical Screen (RME) - General Chief Complaint: Shortness Of Breath Stated Complaint: DIFFICULTY BREATHING Time Seen by Provider: 11/01/17 18:11 Notes: Patient is a resident at a local [facility]. He is on oxygen 2 L at all times there. Today, he got up to go to the bathroom and took his oxygen off, which he is often able to do, and fell and was unable to get back up. When the staff found him on the floor, his oxygen level was 55%. He was put back on 2 L of oxygen, his normal amount, and given a nebulizer treatment and his O2 sat came up to 88%. At the time of his arrival here, patient is in the 90s on 2 L of oxygen. 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 According to the notes from the correction who called here prior to the patient's arrival, he recently has been treated with antibiotics, Lasix, DuoNeb's, and steroids, finishing these medications on October 28. The note also says that the patient received Tamiflu. He has a very deep productive sounding cough. Patient is not able to provide us with any other significant history. TRAVEL OUTSIDE OF THE [place] IN LAST 30 DAYS: No - Related Data Allergies/Adverse Reactions: No Known Allergies Allergy (Verified 04/13/15 06:48) Past Medical History - Past Medical History Cardiac Medical History: Reports: Hx Atrial Fibrillation, Hx Congestive Heart Failure, Hx Coronary Artery Disease, Hx Heart Attack, Hx Hypercholesterolemia, Hx Hypertension Pulmonary Medical History: Reports: Hx COPD, Hx Pneumonia Endocrine Medical History: Reports: Hx Diabetes Mellitus Type 2 Renal/ Medical History: Denies: Hx Peritoneal Dialysis GI Medical History: Reports: Hx Gastroesophageal Reflux Disease Musculoskeltal Medical History: Reports Hx Arthritis Psychiatric Medical History: Reports: Hx Dementia - Has not been diagnosed with dementia but the exam certainly suggests it., Hx Depression Past Surgical History: Reports: Hx Cardiac Catheterization - stents x 3, Hx Cardiac Surgery, Hx Cholecystectomy, 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 , Hx Coronary Stent, Hx Open Heart Surgery, Hx Orthopedic Surgery - Left hip x 2 - Immunizations Hx Diphtheria, Pertussis, Tetanus Vaccination: Yes - Pt unsure of last tetanus shot Physical Exam - Vital signs Vitals: Pulse Ox 96 11/01/17 16:58 Course - Vital Signs Vital signs: Temp Pulse Resp BP Pulse Ox 98.4 F 82 22 H 118/48 L 97 11/01/17 17:00 11/01/17 17:00 11/01/17 17:02 11/01/17 17:02 11/01/17 17:02 - Laboratory Result Diagrams: 11/01/17 17:13 11/01/17 17:13 Laboratory results interpreted by me: 11/01/17 11/01/17 17:13 17:13 WBC 19.4 H Hgb 12.1 L MCH 25.3 L MCHC 30.6 L RDW 17.3 H Seg Neutrophils % 89.7 H Lymphocytes % 5.6 L Absolute Neutrophils 17.4 H Potassium 5.7 H Carbon Dioxide 34 H BUN 53 H Est GFR (Non-Af Amer) 58 L Glucose 308 H Direct Bilirubin 0.5 H Creatine Kinase 29 L Albumin 3.2 L Doctor's Discharge - Discharge Referrals: BONNIE HERNÁNDEZ MD [Primary Care Provider] - Follow up as needed
--- NOTE | 2017-11-01 18:36 | ER Document Report ---
ED Respiratory Problem - General Chief Complaint: Shortness Of Breath Stated Complaint: DIFFICULTY BREATHING Time Seen by Provider: 11/01/17 18:11 Notes: Patient is a resident at a local [facility]. He is on oxygen 2 L at all times there. Today, he got up to go to the bathroom and took his oxygen off, which he is often able to do, and fell and was unable to get back up. When the staff found him on the floor, his oxygen level was 55%. He was put back on 2 L of oxygen, his normal amount, and given a nebulizer treatment and his O2 sat came up to 88%. At the time of his arrival here, patient is in the 90s on 2 L of oxygen. 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 According to the notes from the [facility] who called here prior to the patient's arrival, he recently has been treated with antibiotics, Lasix, DuoNeb's, and steroids, finishing these medications on October 28. Patient is a DNR patient. The note also says that the patient received Tamiflu. He has a very deep productive sounding cough. Patient is not able to provide us with any other significant history. TRAVEL OUTSIDE OF THE [place] IN LAST 30 DAYS: No - Related Data Allergies/Adverse Reactions: No Known Allergies Allergy (Verified 04/13/15 06:48) Past Medical History - Social History Smoking Status: Unknown if Ever Smoked Family History: Reviewed & Not Pertinent Patient has suicidal ideation: No Patient has homicidal ideation: No - Past Medical History Cardiac Medical History: Reports: Hx Atrial Fibrillation, Hx Congestive Heart Failure, Hx Coronary Artery Disease, Hx Heart Attack, Hx Hypercholesterolemia, Hx Hypertension Pulmonary Medical History: Reports: Hx COPD, Hx Pneumonia Endocrine Medical History: Reports: Hx Diabetes Mellitus Type 2 GI Medical History: Reports: Hx Gastroesophageal Reflux Disease Musculoskeltal Medical History: Reports Hx Arthritis Psychiatric Medical History: Reports: Hx Dementia - Has not been diagnosed with dementia but the exam certainly suggests it., Hx Depression Past Surgical History: Reports: Hx Cardiac Catheterization - stents x 3, Hx Cardiac Surgery, Hx Cholecystectomy, 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 , Hx Coronary Stent, Hx Open Heart Surgery, Hx Orthopedic Surgery - Left hip x 2 - Immunizations Hx Diphtheria, Pertussis, Tetanus Vaccination: Yes - Pt unsure of last tetanus shot Hx Pneumococcal Vaccination: 10/06/13 Review of Systems - Review of Systems -: Yes ROS unobtainable due to patient's medical condition - Patient not capable of remembering or answering review of system questions Physical Exam - Vital signs Vitals: Pulse Ox 96 11/01/17 16:58 Interpretation: Hypoxic - While on room air, but in the mid 90s on 2 L nasal oxygen, Other - Irregular cardiac rhythm. - Notes Notes: PHYSICAL EXAMINATION: GENERAL: Well-appearing, in no acute distress. Deep, productive sounding cough. HEAD: Atraumatic, normocephalic. EYES: Pupils equal round and reactive to light, extraocular movements intact. ENT: oropharynx clear without exudates. Moist mucous membranes. NECK: Normal range of motion, supple. LUNGS: Breath sounds clear and equal bilaterally. Few scattered rhonchi and only an occasional wheeze heard. Good air exchange. Oxygen saturation on room air 95% while patient recumbent on stretcher. HEART: Irregular rate and rhythm without murmurs. ABDOMEN: Soft, nontender. No guarding or rebound. No masses. BACK: No tenderness throughout entire back. EXTREMITIES: Normal range of motion without pain. No swelling. Negative Homans bilaterally. NEUROLOGICAL: Normal speech Normal sensory, motor, and reflex exams. Awake, alert, but not oriented. PSYCH: Normal mood, normal affect. SKIN: Warm, dry, no rashes. Course - Re-evaluation Re-evalutation: 11/01/17 19:21 While the patient does have findings suggestive of multi lobar pneumonia, similar to previous presentations, his oxygen level is stable and remained stable on nasal O2. His other vital signs were all essentially normal. Given that patient will apparently need another course of antibiotics, but nothing different than that from his current treatment at the local [facility] , and the fact that the patient is a DNR, I see no reason that he needs to be admitted to this acute care facility at this time. Has talked to the family and explained all this to them and they seem to understand what I am saying to them. - Vital Signs Vital signs: Temp Pulse Resp BP Pulse Ox 98.4 F 82 22 H 118/48 L 97 11/01/17 17:00 11/01/17 17:00 11/01/17 17:02 11/01/17 17:02 11/01/17 17:02 - Laboratory Result Diagrams: 11/01/17 17:13 11/01/17 17:13 Laboratory results interpreted by me: 11/01/17 11/01/17 17:13 17:13 WBC 19.4 H Hgb 12.1 L MCH 25.3 L MCHC 30.6 L RDW 17.3 H Seg Neutrophils % 89.7 H Lymphocytes % 5.6 L Absolute Neutrophils 17.4 H Potassium 5.7 H Carbon Dioxide 34 H BUN 53 H Est GFR (Non-Af Amer) 58 L Glucose 308 H Direct Bilirubin 0.5 H Creatine Kinase 29 L Albumin 3.2 L - Diagnostic Test Radiology reviewed: Image reviewed, Reports reviewed - Chest x-ray read by radiology as showing recurrent left lower lobe and right middle lobe airspace disease consistent with multilobar pneumonia. Does not appear any different than previous x-rays here. - EKG Interpretation by Me Rate: Normal Rhythm: A.Fib Additional EKG results interpreted by me: 11/01/17 19:17 EKG with high-voltage and LVH. Discharge - Discharge Clinical Impression: Hypoxia, Pneumonia Condition: Stable Disposition: HOME, SELF-CARE Additional Instructions: PNEUMONIA: Your examination indicates that you have pneumonia. This is an infection of the lung tissue, usually caused by bacteria or a virus. Symptoms include cough, fever, shaking chills, chest pain, shortness of breath, and coughing up bloody sputum. Treatment for bacterial pneumonia includes rest, antibiotics for 10 to 14 days, increasing your clear liquid intake, a cool mist humidifier at your bedside, and fever medication. Often, a repeat chest X-ray is performed in a few weeks--even if you feel better--to ascertain whether the infection has completely resolved and no underlying lung problem is present. You should call the physician if you develop persistent vomiting, high fever that does not respond to fever medication, increasing shortness of breath , confusion, or lethargy. Also, failure to improve within two to three days is an indication for re-examination. ANTIBIOTIC INJECTION: You have been given an antibiotic injection. Sometimes the injection must be combined with antibiotic pills. For some infections, the shot provides all the antibiotic that's needed. Common side effects of antibiotics include nausea, intestinal cramping, or diarrhea. These are very unusual following a shot. Women may develop vaginal yeast infections, and babies can get yeast ( thrush) in the mouth following the use of antibiotics. Contact your physician if you develop significant side effects from this medication. Allergy to this antibiotic can result in hives, wheezing, faintness, or itching. If symptoms of allergy occur, call the doctor at once. ROCEPHIN: You have been given an injection of an antibiotic called Rocephin ( ceftriaxone). Sometimes the injection must be combined with antibiotic pills. For some infections, such as an uncomplicated ear infection, Rocephin provides all the antibiotic that's needed. The antibiotic will be in your body for about two days. For serious infections, we usually repeat doses of Rocephin daily. Side effects are very unusual following a shot. Women may develop vaginal yeast infections, and babies can get yeast (thrush) in the mouth following the use of antibiotics. Contact your physician if you have symptoms with this medication. Allergy to this antibiotic can result in hives, wheezing, faintness, or itching. If symptoms of allergy occur, call the doctor at once. USE OF ACETAMINOPHEN (Tylenol): Acetaminophen may be taken for pain relief or fever control. It's much safer than aspirin, offering a wider range of "safe" dosages. It is safe during . Some brand names are Tylenol, Panadol, Datril, Anacin 3, Tempra, and Liquiprin. Acetaminophen can be repeated every four hours. The following are maximum recommended dosages: WEIGHT Dose Drops Elixir Chewable( 80mg) (LBS.) drprs=droppers tsp=teaspoon >89 pounds or adults 650 mg to 900 mg Acetaminophen can be repeated every four hours. Maximum dose not to exceed 4000 mg a day. These maximum recommended dosages are slightly higher than the dosages written on the product container, but these dosages are very safe and below the toxic dosage for acetaminophen. FOLLOW-UP CARE: If you have been referred to a physician for follow-up care, call the physician s office for an appointment as you were instructed or within the next two days. If you experience worsening or a significant change in your symptoms, notify the physician immediately or return to the Emergency Department at any time for re-evaluation. The antibiotic has been ordered to be given through your IV once a day for the next 6 days. At any time, if her condition worsens, your oxygen level drops too low, or you have more difficulty breathing, return for us to reevaluate your condition. Referrals: BONNIE HERNÁNDEZ MD [Primary Care Provider] - Follow up as needed
[2017-11-01 20:29] VITALS: BP 119/53
--- NOTE | 2017-11-02 12:00 | EKG REPORT ---
SEVERITY:- ABNORMAL ECG - ATRIAL FIBRILLATION, V-RATE 79-111 LOW VOLTAGE IN FRONTAL LEADS PROBABLE LEFT VENTRICULAR HYPERTROPHY BORDERLINE PROLONGED QT INTERVAL : Confirmed by: Amanda Clayton MD 02-Nov-2017 12:00:22
--- NOTE | 2017-11-04 19:09 | EKG REPORT ---
SEVERITY:- ABNORMAL ECG - ATRIAL FIBRILLATION, V-RATE 79-111 LOW VOLTAGE IN FRONTAL LEADS PROBABLE LEFT VENTRICULAR HYPERTROPHY BORDERLINE PROLONGED QT INTERVAL : Confirmed by: Toy Cuellar MD 04-Nov-2017 19:08:59
== END 2017-11-01 20:30 | disposition home or self-care (01) ==
LOC: ER 16:54
DX: J44.0 Chronic obstructive pulmonary disease with (acute) lower respiratory infection (principal); J18.9 Pneumonia, unspecified organism; Z99.81 Dependence on supplemental oxygen; R09.02 Hypoxemia; R05 Cough; E11.9 Type 2 diabetes mellitus without complications; I48.91 Unspecified atrial fibrillation; I25.10 Atherosclerotic heart disease of native coronary artery without angina pectoris; I10 Essential (primary) hypertension; I25.2 Old myocardial infarction; Z66 Do not resuscitate; Z95.5 Presence of coronary angioplasty implant and graft; Z95.1 Presence of aortocoronary bypass graft
CPT/HCPCS: 93005; 99285; 96365; 36415; 87040; 82553; 82550; 85025; 80053; 84484; 71045; 93010; J0696

== ENCOUNTER 2017-11-20 11:56 | Inpatient (IN) | payer MEDICARE, MEDICAID ==
[2017-11-20] MEDS ORDERED: ACETAMINOPHEN 325 MG TABLET PO ONE (12:33)
[2017-11-20] MEDS ORDERED: LEVOFLOXACIN 500 MG/D5W RTU 500 MG/100 ML RTUPB IV ONE (12:33)
[2017-11-20] MEDS ORDERED: ALBUTEROL SULFATE 0.083% NEB 2.5 MG/3 ML AMPUL NEB ONE (12:37)
[2017-11-20] MEDS ORDERED: NORMAL SALINE 1000 ML 1,000 ML IV ONE (12:38)
[2017-11-20 12:53] LABS: VENOUS BLOOD HCO3 35.3 mmol/L (20-32); VENOUS BLOOD PH 7.23 (7.30-7.42)
[2017-11-20 13:03] LABS: HEMATOCRIT 34.2 % (37.9-51.0); HEMOGLOBIN 10.5 g/dL (13.5-17.0); MEAN CORPUSCULAR HEMOGLOBIN 25.3 pg (27.0-33.4); MEAN CORPUSCULAR HGB CONC 30.8 g/dL (32.0-36.0); MEAN CORPUSCULAR VOLUME 82 fl (80-97); PLATELET COUNT 275 10^3/uL (150-450); RED BLOOD COUNT 4.16 10^6/uL (4.35-5.55); RED CELL DISTRIBUTION WIDTH 17.5 % (11.5-14.0); WHITE BLOOD COUNT 9.7 10^3/uL (4.0-10.5)
[2017-11-20 13:05] LABS: ALANINE AMINOTRANSFERASE 30 U/L (21-72); ALKALINE PHOSPHATASE 119 U/L (38-126); ANION GAP 11 (5-19); ASPARTATE AMINO TRANSFERASE 38 U/L (17-59); BILIRUBIN,DIRECT 0.6 mg/dL (0.0-0.4); BILIRUBIN,TOTAL 0.6 mg/dL (0.2-1.3); BLOOD UREA NITROGEN 67 mg/dL (7-20); CALCIUM 9.2 mg/dL (8.4-10.2); CARBON DIOXIDE 31 mmol/L (22-30); CHLORIDE 98 mmol/L (98-107); CREATINE KINASE 27 U/L (55-170); GLUCOSE 221 mg/dL (75-110); POTASSIUM 5.7 mmol/L (3.6-5.0); SODIUM 139.9 mmol/L (137-145)
[2017-11-20 13:10] LABS: VENOUS BLOOD PCO2 86.4 mmHg (35-63)
[2017-11-20 13:17] LABS: CREATINE KINASE MB 1.34 ng/mL (<4.55)
[2017-11-20 13:25] LABS: TROPONIN I 0.133 ng/mL
[2017-11-20 14:01] LABS: ABSOLUTE LYMPHOCYTES# (MANUAL) 0.6 10^3/uL (0.5-4.7); ABSOLUTE MONOCYTES # (MANUAL) 0.2 10^3/uL (0.1-1.4); ABSOLUTE NEUTROPHILS# (MANUAL) 8.6 10^3/uL (1.7-8.2); BASOPHILS % (MANUAL) 2 % (0-2); EOSINOPHILS % (MANUAL) 1 % (0-6); LYMPHOCYTES % (MANUAL) 6 % (13-45); METAMYELOCYTES % (MANUAL) 2 % (0); MONOCYTES % (MANUAL) 2 % (3-13); MYELOCYTES % (MANUAL) 2 % (0); SEGMENTED NEUTROPHILS % (MAN) 85 % (42-78); TOTAL CELLS COUNTED 100
[2017-11-20 14:02] LABS: TOXIC GRANULATION 2+
[2017-11-20 14:03] LABS: ANISOCYTOSIS 2+; PLATELET COMMENT ADEQUATE
--- NOTE | 2017-11-20 14:07 | ER Document Report ---
ED General - General Chief Complaint: General Weakness Stated Complaint: ALTERED MENTAL STATUS Time Seen by Provider: 11/20/17 12:16 Mode of Arrival: Medic Information source: Relative Notes: Patient is an 86-year-old male who presents to the ER today from the jail, [facility], for altered mental status, syncopal episode prior to arrival. Family member states that she was with them and attempting to help him to the bathroom without his oxygen whenever he passed out on her arms. She states that his eyes rolled back in his head and he was unresponsive for a few minutes "which seemed like forever." She states that he has a history of heart attack and was recently here 3 weeks ago with pneumonia. She states that he does aspirate a lot and gets a lot of pneumonia because he cannot eat solid foods. Family member states that he was acting normally prior to the syncopal episode. She states that after passing out he has not been able to really talk to her or recognize her. TRAVEL OUTSIDE OF THE [place] IN LAST 30 DAYS: No - Related Data Allergies/Adverse Reactions: No Known Allergies Allergy (Verified 04/13/15 06:48) Past Medical History - General Information source: Patient - Social History Smoking Status: Former Smoker Family History: Reviewed & Not Pertinent - Past Medical History Cardiac Medical History: Reports: Hx Atrial Fibrillation, Hx Congestive Heart Failure, Hx Coronary Artery Disease, Hx Heart Attack, Hx Hypercholesterolemia, Hx Hypertension Pulmonary Medical History: Reports: Hx COPD, Hx Pneumonia Endocrine Medical History: Reports: Hx Diabetes Mellitus Type 2 Renal/ Medical History: Denies: Hx Peritoneal Dialysis GI Medical History: Reports: Hx Gastroesophageal Reflux Disease Musculoskeltal Medical History: Reports Hx Arthritis Psychiatric Medical History: Reports: Hx Dementia - Has not been diagnosed with dementia but the exam certainly suggests it., Hx Depression Past Surgical History: Reports: Hx Cardiac Catheterization - stents x 3, Hx Cardiac Surgery, Hx Cholecystectomy, 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 , Hx Coronary Stent, Hx Open Heart Surgery, Hx Orthopedic Surgery - Left hip x 2 - Immunizations Hx Diphtheria, Pertussis, Tetanus Vaccination: Yes - Pt unsure of last tetanus shot Hx Pneumococcal Vaccination: 10/06/13 Review of Systems - Review of Systems Constitutional: No symptoms reported EENT: No symptoms reported Cardiovascular: No symptoms reported Respiratory: See HPI Gastrointestinal: No symptoms reported Genitourinary: No symptoms reported Male Genitourinary: No symptoms reported Musculoskeletal: No symptoms reported Skin: No symptoms reported Hematologic/Lymphatic: No symptoms reported Neurological/Psychological: See HPI Physical Exam - Vital signs Vitals: Temp Pulse Resp BP Pulse Ox 101.3 F H 90 34 H 136/63 H 96 11/20/17 11:56 11/20/17 11:56 11/20/17 11:56 11/20/17 11:56 11/20/17 11:56 - Notes Notes: PHYSICAL EXAMINATION: GENERAL: Elderly, chronically ill-appearing on oxygen, working a little harder to breathe, in mild acute distress HEAD: Atraumatic, normocephalic. EYES: Pupils equal round and reactive to light, extraocular movements intact, sclera anicteric, conjunctiva are normal. ENT: ear canals without erythema or foreign body, TMs pearly shen with good bony landmarks, nares patent, oropharynx clear without exudates. Moist mucous membranes. airway patent NECK: Normal range of motion, supple without lymphadenopathy LUNGS: rhonchi Scattered throughout lung bases, decreased air flow in the right lower lobe, increased work of breathing using accessory muscles HEART: Regular rate and rhythm without murmurs ABDOMEN: Soft, no tenderness. No guarding, no rebound EXTREMITIES: Normal range of motion, no pitting edema. No cyanosis. NEUROLOGICAL: Cranial nerves grossly intact. Normal sensory/motor exams. PSYCH: occasionally responds by shaking his head appropriately SKIN: Warm, Dry, normal turgor, stage II pressure ulcer to the buttocks Course - Re-evaluation Re-evalutation: 11/20/17 18:00 white blood cell count is actually normal, however chest x-ray reports a new right lower lobe pneumonia that was not present on x-ray 3 weeks ago here in the emergency department he had patient has a fever of 101.7F in the emergency department which Tylenol was given for and fever did reduce to 99F. Patient did improve on BiPAP and was able to recognize family members and answer questions a little bit better. He denied chest pain the entire time here. I do think that he was appropriate and answering these questions. Patient was mildly acidotic on venous blood gas with a pCO2 of 85. CT of the head normal today. EKG without any evidence of acute ischemia or changes from last EKG. Dr. Arellano , hospitalist agrees to admit this time for pneumonia - Vital Signs Vital signs: Temp Pulse Resp BP Pulse Ox 99.4 F 90 20 97/49 L 99 11/20/17 16:30 11/20/17 11:56 11/20/17 16:30 11/20/17 16:30 11/20/17 16:30 - Laboratory Result Diagrams: 11/20/17 12:26 11/20/17 12:26 Laboratory results interpreted by me: 11/20/17 11/20/17 11/20/17 12:26 12:26 12:26 RBC 4.16 L Hgb 10.5 L Hct 34.2 L MCH 25.3 L MCHC 30.8 L RDW 17.5 H Seg Neuts % (Manual) 85 H Lymphocytes % (Manual) 6 L Monocytes % (Manual) 2 L Metamyelocytes % 2 H Myelocytes % 2 H Abs Neuts (Manual) 8.6 H VBG pH 7.23 L VBG pCO2 86.4 H* VBG HCO3 35.3 H Potassium 5.7 H Carbon Dioxide 31 H BUN 67 H Creatinine 1.58 H Est GFR ( Amer) 51 L Est GFR (Non-Af Amer) 42 L Glucose 221 H Direct Bilirubin 0.6 H Creatine Kinase 27 L Albumin 3.0 L Urine Protein Urine Glucose (UA) Urine Blood 11/20/17 14:59 RBC Hgb Hct MCH MCHC RDW Seg Neuts % (Manual) Lymphocytes % (Manual) Monocytes % (Manual) Metamyelocytes % Myelocytes % Abs Neuts (Manual) VBG pH VBG pCO2 VBG HCO3 Potassium Carbon Dioxide BUN Creatinine Est GFR ( Amer) Est GFR (Non-Af Amer) Glucose Direct Bilirubin Creatine Kinase Albumin Urine Protein 100 H Urine Glucose (UA) 50 H Urine Blood MODERATE H Discharge - Discharge Clinical Impression: Pneumonia Qualifiers: Pneumonia type: due to unspecified organism Laterality: right Lung location: lower lobe of lung Qualified Code(s): J18.1 - Lobar pneumonia, unspecified organism Condition: Stable Disposition: ADMITTED INPATIENT Admitting Provider: Hospitalist - Dr. Arellano Unit Admitted: Medical Floor
--- NOTE | 2017-11-20 14:07 | RADIOLOGY REPORT (SQ) ---
EXAM DESCRIPTION: CT HEAD WITHOUT COMPLETED DATE/TIME: 11/20/2017 2:00 pm REASON FOR STUDY: ams COMPARISON: 09/17/2016 TECHNIQUE: Axial images acquired through the brain without intravenous contrast. Images reviewed wi th bone, brain and subdural windows. Images stored on PACS. All CT scanners at this facility use dose modulation, iterative reconstruction, and/or weight based d osing when appropriate to reduce radiation dose to as low as reasonably achievable (ALARA). [facility]: Dose Right [facility]: CareDose [facility]: Dose Right [facility]: Teradose 4D [facility]: Smart Ush[employer] RADIATION DOSE: CT Rad equipment meets quality standard of care and radiation dose reduction techniq ues were employed. CTDIvol: 64.6 mGy. DLP: 1163 mGy-cm.mGy. LIMITATIONS: None. FINDINGS: VENTRICLES: Prominent. CEREBRUM: No masses. No hemorrhage. No midline shift. Old right occipital infarct. Areas of low d ensity in the white matter most likely due to chronic micro-vascular ischemic change. No evidence fo r acute infarction. CEREBELLUM: No masses. No hemorrhage. No alteration of density. No evidence for acute infarction. EXTRAAXIAL SPACES: Age-related involutional change. No fluid collections. No masses. ORBITS AND GLOBE: No intra- or extraconal masses. Normal contour of globe without masses. CALVARIUM: No fracture. PARANASAL SINUSES: No fluid or mucosal thickening. SOFT TISSUES: No mass or hematoma. OTHER: No other significant finding. IMPRESSION: CHRONIC CHANGES OF ATROPHY AND MICROVASCULAR ISCHEMIA. NO ACUTE PROCESS. EVIDENCE OF ACUTE STROKE: NO. TECHNICAL DOCUMENTATION: JOB ID: [id number] Quality ID # [id number]: Final reports with documentation of one or more dose reduction techniques (e.g., Au tomated exposure control, adjustment of the mA and/or kV according to patient size, use of iterative reconstruction technique) 2010 [employer]- All Rights Reserved
--- NOTE | 2017-11-20 14:31 | RADIOLOGY REPORT (SQ) ---
EXAM DESCRIPTION: CHEST SINGLE VIEW COMPLETED DATE/TIME: 11/20/2017 2:08 pm REASON FOR STUDY: pneumonia, ams COMPARISON: 11/01/2017 EXAM PARAMETERS: NUMBER OF VIEWS: One view. TECHNIQUE: Single frontal radiographic view of the chest acquired. RADIATION DOSE: NA LIMITATIONS: None. FINDINGS: LUNGS AND PLEURA: Moderate size left pleural effusion is again identified which could be p ersistent or recurrent. I cannot exclude some underlying atelectasis or infiltrate in the left lung base. There is increased density in the right lung base which was not present on the previous study and has the appearance of a patchy pneumonic infiltrate. MEDIASTINUM AND HILAR STRUCTURES: No masses. Contour normal. HEART AND VASCULAR STRUCTURES: The configuration of the heart mediastinal structures is unchanged BONES: No acute findings. HARDWARE: Patient is status post median sternotomy. OTHER: No other significant finding. IMPRESSION: Bibasilar densities as noted above TECHNICAL DOCUMENTATION: JOB ID: [id number] [employer]- All Rights Reserved
[2017-11-20 15:17] LABS: APPEARANCE,URINE CLOUDY; BILIRUBIN,URINE NEGATIVE (NEGATIVE); COLOR,URINE YELLOW; GLUCOSE, URINE 50 mg/dL (NEGATIVE); KETONES,URINE NEGATIVE (NEGATIVE); LEUKOCYTE ESTERASE,URINE NEGATIVE (NEGATIVE); NITRITE,URINE NEGATIVE (NEGATIVE); PROTEIN,URINE 100 mg/dL (NEGATIVE); URINE SPECIFIC GRAVITY 1.015; UROBILINOGEN,URINE NEGATIVE mg/dL (<2.0)
[2017-11-20] MEDS ORDERED: ALBUTEROL SULFATE 0.083% NEB 2.5 MG/3 ML AMPUL NEB PRN (15:24)
[2017-11-20] MEDS ORDERED: ZOLPIDEM TARTRATE 5 MG TABLET PO PRN (15:24)
[2017-11-20] MEDS ORDERED: ACETAMINOPHEN 325 MG TABLET PO PRN (15:24)
[2017-11-20] MEDS ORDERED: OXYCODONE-ACETAMINOPHEN 5-325 MG TABLET PO PRN (15:24)
[2017-11-20] MEDS ORDERED: ONDANSETRON HCL INJ/PF 4 MG/2 ML SDV IV PRN (15:24)
[2017-11-20 15:27] LABS: URINE AMPHETAMINES SCREEN NEGATIVE; URINE BARBITURATES SCREEN NEGATIVE; URINE BENZODIAZEPINES SCREEN NEGATIVE; URINE COCAINE SCREEN NEGATIVE; URINE MARIJUANA (THC) SCREEN NEGATIVE; URINE METHADONE SCREEN NEGATIVE; URINE PHENCYCLIDINE SCREEN NEGATIVE
[2017-11-20] MEDS ORDERED: DEXTROSE 50%-WATER 25 GM/50 ML DISP.SYRIN IV PRN ×2 (16:13)
[2017-11-20] MEDS ORDERED: GLUCAGON,HUMAN RECOMB 1 MG INJ IM PRN (16:13)
[2017-11-20] MEDS ORDERED: DEXTROSE 40% GEL 15 GM TUBE PO PRN ×2 (16:13)
[2017-11-20] MEDS ORDERED: SODIUM POLYSTYRENE SULFONATE 15 GM/60 ML PO ONE (16:16)
--- NOTE | 2017-11-20 16:17 | PDOC H&P ---
History of Present Illness Admission Date/PCP: FRANKIE STOCKTON PA-C Patient complains of: Information retrieve through his daughter History of Present Illness: KRISTINE DE ANDA is a 86 year old maleWas [facility]. His daughter states that she was with him and patient wanted to go to the bathroom. The oxygen cord was not long enough and then she noticed that was kinked. Patient sat down on the toilet. She returned his back on him and patient slumped over and she started screaming. Patient was then transported to emergency room. Patient usually uses 2 L of O2 by nasal cannula. By the time patient arrived to ER oxygen was 81% on 15 L of O2. Patient was immediately placed on BiPAP. Further workup showed a pneumonia in the right lung with a left-sided pleural effusion which is recurrent in nature. Due to presentation the hospitalist service was consulted and prompted to admit for further management Past Medical History Cardiac Medical History: Reports: Atrial Fibrillation, Congestive Heart Failure , Coronary Artery Disease, Myocardial Infarction, Hyperlipidema, Hypertension Pulmonary Medical History: Reports: Chronic Obstructive Pulmonary Disease (COPD) , Pneumonia, Respiratory Failure EENT Medical History: Reports: None Neurological Medical History: Reports: None Endocrine Medical History: Reports: Diabetes Mellitus Type 2 Malignancy Medical History: Reports: None GI Medical History: Reports: Gastroesophageal Reflux Disease Musculoskeltal Medical History: Reports: Arthritis Skin Medical History: Reports: None Psychiatric Medical History: Reports: Dementia - Has not been diagnosed with dementia but the exam certainly suggests it., Depression Past Surgical History Past Surgical History: Reports: Cardiac Catheterization - stents x 3, Cholecystectomy, Coronary Artery Bypass Graft - 3 vessel, Coronary Stent, Orthopedic Surgery - Left hip x 2 Social History Smoking Status: Former Smoker Frequency of Alcohol Use: None Hx Recreational Drug Use: No Drugs: None Hx Prescription Drug Abuse: No - Advance Directive Resuscitation Status: Do Not Resuscitate Family History Family History: Reviewed & Not Pertinent Parental Family History Reviewed: Yes Children Family History Reviewed: Yes Sibling(s) Family History Reviewed.: Yes Medication/Allergy Allergies/Adverse Reactions: No Known Allergies Allergy (Verified 04/13/15 06:48) Physical Exam Vital Signs: Temp Pulse Resp BP Pulse Ox 101.3 F H 90 23 H 103/41 L 99 11/20/17 11:56 11/20/17 11:56 11/20/17 15:31 11/20/17 15:31 02/15/18 15:31 Intake & Output 11/19/17 11/20/17 11/21/17 06:59 06:59 06:59 Weight 72 kg Results Laboratory Results: 11/20/17 12:26 11/20/17 12:26 11/20/17 11/20/17 11/20/17 12:26 12:26 12:26 WBC 9.7 RBC 4.16 L Hgb 10.5 L Hct 34.2 L MCV 82 MCH 25.3 L MCHC 30.8 L RDW 17.5 H Plt Count 275 Seg Neutrophils % Not Reportable Lymphocytes % Not Reportable Monocytes % Not Reportable Eosinophils % Not Reportable Basophils % Not Reportable Absolute Neutrophils Not Reportable Absolute Lymphocytes Not Reportable Absolute Monocytes Not Reportable Absolute Eosinophils Not Reportable Absolute Basophils Not Reportable VBG pH VBG pCO2 VBG HCO3 VBG Base Excess Sodium 139.9 Potassium 5.7 H Chloride 98 Carbon Dioxide 31 H Anion Gap 11 BUN 67 H Creatinine 1.58 H Est GFR ( Amer) 51 L Est GFR (Non-Af Amer) 42 L Glucose 221 H Lactic Acid 2.0 Calcium 9.2 Total Bilirubin 0.6 AST 38 ALT 30 Alkaline Phosphatase 119 Total Protein 7.0 Albumin 3.0 L Urine Color Urine Appearance Urine pH Ur Specific [place] Urine Protein Urine Glucose (UA) Urine Ketones Urine Blood Urine Nitrite Ur Leukocyte Esterase Urine WBC (Auto) Urine RBC (Auto) 11/20/17 11/20/17 12:26 14:59 WBC RBC Hgb Hct MCV MCH MCHC RDW Plt Count Seg Neutrophils % Lymphocytes % Monocytes % Eosinophils % Basophils % Absolute Neutrophils Absolute Lymphocytes Absolute Monocytes Absolute Eosinophils Absolute Basophils VBG pH 7.23 L VBG pCO2 86.4 H* VBG HCO3 35.3 H VBG Base Excess 5.0 Sodium Potassium Chloride Carbon Dioxide Anion Gap BUN Creatinine Est GFR ( Amer) Est GFR (Non-Af Amer) Glucose Lactic Acid Calcium Total Bilirubin AST ALT Alkaline Phosphatase Total Protein Albumin Urine Color YELLOW Urine Appearance CLOUDY Urine pH 5.0 Ur Specific [place] 1.015 Urine Protein 100 H Urine Glucose (UA) 50 H Urine Ketones NEGATIVE Urine Blood MODERATE H Urine Nitrite NEGATIVE Ur Leukocyte Esterase NEGATIVE Urine WBC (Auto) 5 Urine RBC (Auto) 35 11/20/17 11/20/17 12:26 12:26 Creatine Kinase 27 L CK-MB (CK-2) 1.34 Troponin I 0.133 Impressions: Chest X-Ray 11/20/17 12:17 IMPRESSION: Bibasilar densities as noted above Head CT 11/20/17 12:18 IMPRESSION: CHRONIC CHANGES OF ATROPHY AND MICROVASCULAR ISCHEMIA. NO ACUTE PROCESS. EVIDENCE OF ACUTE STROKE: NO. Assessment & Plan - Diagnosis (1) Acute and chronic respiratory failure with hypoxia Is this a current diagnosis for this admission?: Yes Plan: Will continue with BiPAP and will wean off to 2 L of O2 by nasal cannula as tolerated (2) Pneumonia Qualifiers: Pneumonia type: due to unspecified organism Laterality: right Lung location: lower lobe of lung Qualified Code(s): J18.1 - Lobar pneumonia, unspecified organism Is this a current diagnosis for this admission?: Yes Plan: This is a new infiltrate in the right lower lobe. Will place on Zosyn and Zyvox (3) Acute on chronic renal failure Qualifiers: Chronic kidney disease stage: stage 3 (moderate) Is this a current diagnosis for this admission?: Yes Plan: Will gentle hydrate and will trend (4) Anemia in chronic kidney disease Qualifiers: Chronic kidney disease stage: stage 3 (moderate) Qualified Code(s): N18.3 - Chronic kidney disease, stage 3 (moderate); D63.1 - Anemia in chronic kidney disease; D63.1 - Anemia in chronic kidney disease Is this a current diagnosis for this admission?: Yes Plan: Will trend (5) Anticoagulant long-term use Is this a current diagnosis for this admission?: Yes Plan: Patient has multiple ecchymotic areas. Will hold of Coumadin (6) Atrial fibrillation Qualifiers: Atrial fibrillation type: persistent Qualified Code(s): I48.1 - Persistent atrial fibrillation Is this a current diagnosis for this admission?: Yes Plan: Rate is controlled. Will hold of Coumadin (7) Diabetes mellitus, type II Qualifiers: Diabetes mellitus complication status: with kidney complications Diabetes mellitus complication detail: with chronic kidney disease Diabetes mellitus fci insulin use: without fci use Chronic kidney disease stage: stage 3 (moderate) Qualified Code(s): E11.22 - Type 2 diabetes mellitus with diabetic chronic kidney disease Is this a current diagnosis for this admission?: Yes Plan: Will place patient on Humalog sliding scale with bedside glucose before meals and at bedtime (8) Hypertension Qualifiers: Hypertension type: essential hypertension Qualified Code(s): I10 - Essential (primary) hypertension Is this a current diagnosis for this admission?: Yes Plan: Anticipate to place on outpatient regimen (9) Pleural effusion Is this a current diagnosis for this admission?: Yes Plan: Procuring in nature for now we will see how patient is doing but may consider thoracentesis (10) COPD exacerbation Is this a current diagnosis for this admission?: Yes Plan: To place on nebulizer treatments, IV steroids, Mucomyst and Mucinex (11) Hyperkalemia Is this a current diagnosis for this admission?: Yes Plan: Will order 1 dose of Kayexalate and trend - Time Time Spent: 50 to 70 Minutes Medications reviewed and adjusted accordingly: Yes Anticipated discharge: SNF Within: within 72 hours - Inpatient Certification Based on my medical assessment, after consideration of the patient's comorbidities, presenting symptoms, or acuity I expect that the services needed warrant INPATIENT care.: Yes I certify that my determination is in accordance with my understanding of Medicare's requirements for reasonable and necessary INPATIENT services [42 CFR 412.3e].: Yes Medical Necessity: Need Close Monitoring Due to Risk of Patient Decompensation, Need for Nebulizer Therapy and Monitoring of Response, Need for IV Antibiotics
[2017-11-20] MEDS ORDERED: PIPERACILLIN SODIUM/TAZOBACTAM 3.375 GM in NORMAL SALINE 100 ML IV SCH (18:00)
[2017-11-20] MEDS: LINEZOLID 300 ML IV SCH (19:39)
[2017-11-20] MEDS: NORMAL SALINE 1000 ML 1,000 ML IV PRN (19:40)
[2017-11-20] MEDS: IPRATROPIUM/ALBUTEROL 0.5-2.5 MG/3 ML AMPUL NEB SCH (20:04)
[2017-11-20] MEDS: ACETYLCYSTEINE 20% SOLN 800 MG/4 ML VIAL.NEB NEB SCH (20:05)
[2017-11-20] MEDS: PIPERACILLIN SODIUM/TAZOBACTAM 2.25 GM in NORMAL SALINE 100 ML IV SCH (21:16)
[2017-11-20] MEDS: GUAIFENESIN 600 MG TABLET.SA PO SCH (21:48)
[2017-11-20] MEDS: HEPARIN SOD (PORCINE) 5,000 UNIT/ML 1 ML SYRINGE SUBCUT SCH (21:48)
[2017-11-20] MEDS: INSULIN LISPRO 100 UNIT/ML 3 ML VIAL SUBCUT PRN (22:59)
[2017-11-21] MEDS: PIPERACILLIN SODIUM/TAZOBACTAM 2.25 GM in NORMAL SALINE 100 ML IV SCH ×5 (00:33→23:48)
[2017-11-21] MEDS: HEPARIN SOD (PORCINE) 5,000 UNIT/ML 1 ML SYRINGE SUBCUT SCH ×3 (05:28→22:35)
[2017-11-21] MEDS: LINEZOLID 300 ML IV SCH (05:28)
[2017-11-21] MEDS: IPRATROPIUM/ALBUTEROL 0.5-2.5 MG/3 ML AMPUL NEB SCH ×3 (08:11→19:39)
[2017-11-21] MEDS: ACETYLCYSTEINE 20% SOLN 800 MG/4 ML VIAL.NEB NEB SCH ×2 (08:11→19:40)
[2017-11-21] MEDS ORDERED: LACTULOSE 10 GM PO PRN (09:00)
[2017-11-21] MEDS ORDERED: LORAZEPAM 0.5 MG TABLET PO PRN (09:00)
[2017-11-21] MEDS ORDERED: LACTULOSE SYRUP 20 GM/30 ML UDCUP PO PRN (09:05)
[2017-11-21] MEDS ORDERED: APIXABAN 2.5 MG TABLET PO SCH (10:00)
[2017-11-21] MEDS ORDERED: (PENDING PHARMACY ID) (Cholecalciferol (Vitamin D3) [Vitamin D3] 2,000 UNIT) PO SCH (10:00)
[2017-11-21] MEDS: CALCIUM CARBONATE 500 MG TABLET PO SCH ×2 (10:31→18:04)
[2017-11-21] MEDS: CHOLECALCIFEROL (D3) 1,000 UNIT TABLET PO SCH (10:32)
[2017-11-21] MEDS: LEVETIRACETAM 500 MG TABLET PO SCH ×2 (10:33→22:34)
[2017-11-21] MEDS: GUAIFENESIN 600 MG TABLET.SA PO SCH ×2 (10:33→22:35)
[2017-11-21] MEDS: LOSARTAN POTASSIUM 25 MG TABLET PO SCH (10:34)
[2017-11-21] MEDS: ROPINIROLE HCL 0.25 MG TABLET PO SCH (10:35)
[2017-11-21] MEDS: METOPROLOL SUCCINATE 50 MG TAB.SR.24H PO SCH (10:35)
[2017-11-21] MEDS: SERTRALINE HCL 50 MG TABLET PO SCH (10:36)
[2017-11-21] MEDS: SCOPOLAMINE HYDROBROMIDE 1.5 MG PATCH.TD72 TD SCH (10:36)
[2017-11-21] MEDS: DOCUSATE SODIUM 100 MG CAPSULE PO SCH (10:37)
--- NOTE | 2017-11-21 11:08 | EKG REPORT ---
SEVERITY:- ABNORMAL ECG - ATRIAL FIBRILLATION LEFT AXIS DEVIATION LOW VOLTAGE IN FRONTAL LEADS : Confirmed by: Gamaliel Palomares 21-Nov-2017 11:07:27
[2017-11-21 11:34] LABS: PATH REVIEW PATHOLOGIST REVIEWED
[2017-11-21] MEDS: INSULIN LISPRO 100 UNIT/ML 3 ML VIAL SUBCUT PRN ×2 (12:44→16:51)
--- NOTE | 2017-11-21 14:59 | PDOC PROGRESS REPORT ---
Subjective Progress Note for:: 11/21/17 Subjective:: Unable to obtain since hard of hearing and due to mental status Review of system Unable to obtain since hard of hearing and due to mental status All significant laboratories and diagnostics have been reviewed Reason For Visit: ACUTE ON CHRONIC RESPIRATORY FAILURE, PNA, Physical Exam Vital Signs: Temp Pulse Resp BP Pulse Ox 97.9 F 72 38 H 112/47 L 93 11/20/17 19:42 11/20/17 20:04 11/21/17 07:00 11/20/17 19:42 11/21/17 00:00 Intake & Output 11/20/17 11/21/17 11/22/17 06:59 06:59 06:59 Intake Total 1000 Output Total 250 Balance 750 Weight 72 kg General appearance: PRESENT: cooperative, hard of hearing, mild distress, thin Head exam: PRESENT: atraumatic, normocephalic Eye exam: PRESENT: conjunctiva pink, EOMI, PERRLA Ear exam: PRESENT: normal external ear exam Neck exam: PRESENT: full ROM. ABSENT: JVD, lymphadenopathy, tenderness Respiratory exam: PRESENT: crackles, decreased breath sounds, rhonchi Cardiovascular exam: PRESENT: irregular rhythm. ABSENT: diastolic murmur, systolic murmur Vascular exam: PRESENT: normal capillary refill GI/Abdominal exam: PRESENT: normal bowel sounds, soft. ABSENT: tenderness Extremities exam: ABSENT: full ROM, pedal edema Musculoskeletal exam: ABSENT: ambulatory Neurological exam: PRESENT: alert, awake, oriented to person Psychiatric exam: PRESENT: appropriate affect, normal mood Skin exam: PRESENT: normal color, petechiae Results Impressions: Chest X-Ray 11/20/17 12:17 IMPRESSION: Bibasilar densities as noted above Head CT 11/20/17 12:18 IMPRESSION: CHRONIC CHANGES OF ATROPHY AND MICROVASCULAR ISCHEMIA. NO ACUTE PROCESS. EVIDENCE OF ACUTE STROKE: NO. Assessment & Plan - Diagnosis (1) Acute and chronic respiratory failure with hypoxia Is this a current diagnosis for this admission?: Yes Plan: Patient wean off from BiPAP to oxygen. Talked to daughter and she was amenable for hospice consult. Will add a scopolamine patch (2) Pneumonia Qualifiers: Pneumonia type: due to unspecified organism Laterality: right Lung location: lower lobe of lung Qualified Code(s): J18.1 - Lobar pneumonia, unspecified organism Is this a current diagnosis for this admission?: Yes Plan: Continue Zosyn and Zyvox (3) Acute on chronic renal failure Qualifiers: Chronic kidney disease stage: stage 3 (moderate) Is this a current diagnosis for this admission?: Yes Plan: Continue gentle hydration (4) Anemia in chronic kidney disease Qualifiers: Chronic kidney disease stage: stage 3 (moderate) Qualified Code(s): N18.3 - Chronic kidney disease, stage 3 (moderate); D63.1 - Anemia in chronic kidney disease; D63.1 - Anemia in chronic kidney disease Is this a current diagnosis for this admission?: Yes Plan: Will trend (5) Anticoagulant long-term use Is this a current diagnosis for this admission?: Yes Plan: Patient has multiple ecchymotic areas. Will discontinue Eliquis. (6) Atrial fibrillation Qualifiers: Atrial fibrillation type: persistent Qualified Code(s): I48.1 - Persistent atrial fibrillation Is this a current diagnosis for this admission?: Yes Plan: Rate is controlled. Will hold off Eliquis due to renal and patient's age (7) Diabetes mellitus, type II Qualifiers: Diabetes mellitus complication status: with kidney complications Diabetes mellitus complication detail: with chronic kidney disease Diabetes mellitus milk bottler insulin use: without fci use Chronic kidney disease stage: stage 3 (moderate) Qualified Code(s): E11.22 - Type 2 diabetes mellitus with diabetic chronic kidney disease; N18.3 - Chronic kidney disease, stage 3 ( moderate); N18.3 - Chronic kidney disease, stage 3 (moderate) Is this a current diagnosis for this admission?: Yes Plan: Continue Humalog sliding scale with bedside glucose before meals and at bedtime (8) Hypertension Qualifiers: Hypertension type: essential hypertension Qualified Code(s): I10 - Essential (primary) hypertension Is this a current diagnosis for this admission?: Yes Plan: Continue outpatient regimen (9) Pleural effusion Is this a current diagnosis for this admission?: Yes Plan: Recuring in nature for now we will see how patient is doing but may consider thoracentesis (10) COPD exacerbation Is this a current diagnosis for this admission?: Yes Plan: Continue nebulizer treatments, IV steroids, Mucomyst and Mucinex (11) Hyperkalemia Is this a current diagnosis for this admission?: Yes Plan: Treated with Kayexalate on admission. To trend - Time Time Spent with patient: 15-24 minutes Medications reviewed and adjusted accordingly: Yes Anticipated discharge: Hospice Within: within 48 hours - Inpatient Certification I certify that my determination is in accordance with my understanding of Medicare's requirements for reasonable and necessary INPATIENT services [42 CFR 412.3e].: Yes Medical Necessity: Need Close Monitoring Due to Risk of Patient Decompensation, Need For IV Fluids, Need for Nebulizer Therapy and Monitoring of Response, Need for IV Antibiotics
[2017-11-21] MEDS: GABAPENTIN 300 MG CAPSULE PO SCH (22:33)
[2017-11-22] MEDS: HEPARIN SOD (PORCINE) 5,000 UNIT/ML 1 ML SYRINGE SUBCUT SCH ×3 (05:47→21:09)
[2017-11-22] MEDS: PIPERACILLIN SODIUM/TAZOBACTAM 2.25 GM in NORMAL SALINE 100 ML IV SCH ×2 (05:47→11:39)
[2017-11-22] MEDS: NORMAL SALINE 1000 ML 1,000 ML IV PRN (05:47)
[2017-11-22 08:44] VITALS: BP 132/62
[2017-11-22] MEDS: IPRATROPIUM/ALBUTEROL 0.5-2.5 MG/3 ML AMPUL NEB SCH (09:02)
[2017-11-22] MEDS: ACETYLCYSTEINE 20% SOLN 800 MG/4 ML VIAL.NEB NEB SCH (09:03)
[2017-11-22] MEDS: METOPROLOL SUCCINATE 50 MG TAB.SR.24H PO SCH (10:26)
[2017-11-22] MEDS: SERTRALINE HCL 50 MG TABLET PO SCH (10:26)
[2017-11-22] MEDS: DOCUSATE SODIUM 100 MG CAPSULE PO SCH (10:26)
[2017-11-22] MEDS: LEVETIRACETAM 500 MG TABLET PO SCH ×2 (10:26→21:09)
[2017-11-22] MEDS: GUAIFENESIN 600 MG TABLET.SA PO SCH (10:26)
[2017-11-22] MEDS: CALCIUM CARBONATE 500 MG TABLET PO SCH (10:26)
[2017-11-22] MEDS: LOSARTAN POTASSIUM 25 MG TABLET PO SCH (10:26)
[2017-11-22] MEDS: ROPINIROLE HCL 0.25 MG TABLET PO SCH (10:26)
[2017-11-22] MEDS: CHOLECALCIFEROL (D3) 1,000 UNIT TABLET PO SCH (10:26)
[2017-11-22] MEDS ORDERED: MORPHINE SULFATE 10 MG/ML INJ IV PRN (13:30)
--- NOTE | 2017-11-22 13:41 | PDOC PROGRESS REPORT ---
Subjective Progress Note for:: 11/22/17 Subjective:: patient has stabilized but really plateaued and family says he has had enough and want to change his care to comfort measures only. they report he has no quality of life and the treatments we give him have now proved futile and are only prolonging the inevitable. he is very hard of hearing and difficult to communicate with but has no complaints to me at all. Reason For Visit: ACUTE ON CHRONIC RESPIRATORY FAILURE, PNA, Physical Exam Vital Signs: Temp Pulse Resp BP Pulse Ox 97.5 F 62 18 132/62 H 94 11/22/17 07:41 11/22/17 09:03 11/22/17 09:03 11/22/17 07:41 11/22/17 09:03 Intake & Output 11/21/17 11/22/17 11/23/17 06:59 06:59 06:59 Intake Total 1000 2352 Output Total 250 Balance 750 2352 Weight 72 kg 62.8 kg General appearance: PRESENT: no acute distress, well-nourished Head exam: PRESENT: atraumatic, normocephalic Mouth exam: PRESENT: dry mucosa Respiratory exam: PRESENT: rales, rhonchi, unlabored. ABSENT: accessory muscle use GI/Abdominal exam: PRESENT: normal bowel sounds, soft Neurological exam: PRESENT: alert, awake, oriented to person Psychiatric exam: PRESENT: appropriate affect, normal mood Assessment & Plan - Diagnosis (1) Pneumonia Qualifiers: Pneumonia type: due to unspecified organism Laterality: right Lung location: lower lobe of lung Qualified Code(s): J18.1 - Lobar pneumonia, unspecified organism Is this a current diagnosis for this admission?: Yes (2) Acute and chronic respiratory failure with hypoxia Is this a current diagnosis for this admission?: Yes (3) Atrial fibrillation Qualifiers: Atrial fibrillation type: persistent Qualified Code(s): I48.1 - Persistent atrial fibrillation Is this a current diagnosis for this admission?: Yes (4) Chronic obstructive pulmonary disease Qualifiers: COPD type: COPD with acute lower respiratory infection Qualified Code(s): J44.0 - Chronic obstructive pulmonary disease with acute lower respiratory infection - Time Time Spent with patient: 35 or more minutes - Plan Summary Plan Summary: at family's request and in line with his wishes, we will change the focus of our care to comfort measures only. hospital social worker to begin arranging for outpt end of life care back at [facility] if possible.
[2017-11-22] MEDS: LORAZEPAM INJ 2 MG/1 ML VIAL IV PRN (14:33)
[2017-11-22] MEDS: HYDROMORPHONE HCL INJ/PF 2 MG/ML AMPULE IV PRN ×4 (16:02→22:20)
[2017-11-22] MEDS: GABAPENTIN 300 MG CAPSULE PO SCH (21:09)
[2017-11-23] MEDS: HYDROMORPHONE HCL INJ/PF 2 MG/ML AMPULE IV PRN ×7 (00:28→22:30)
[2017-11-23] MEDS: HEPARIN SOD (PORCINE) 5,000 UNIT/ML 1 ML SYRINGE SUBCUT SCH ×3 (06:08→22:26)
[2017-11-23] MEDS: METOPROLOL SUCCINATE 50 MG TAB.SR.24H PO SCH (09:20)
[2017-11-23] MEDS: LEVETIRACETAM 500 MG TABLET PO SCH ×2 (09:20→22:26)
[2017-11-23] MEDS: ROPINIROLE HCL 0.25 MG TABLET PO SCH (09:20)
[2017-11-23] MEDS: DOCUSATE SODIUM 100 MG CAPSULE PO SCH (09:20)
--- NOTE | 2017-11-23 14:51 | PDOC PROGRESS REPORT ---
Subjective Progress Note for:: 11/23/17 Subjective:: patient changed to comfort measures only. family report he has no quality of life and the treatments we give him have now proved futile and are only prolonging the inevitable. Rx's changed Friday and he resting comfortably with familiy at the bedside; they are satisfied with the care provided so far and express no concerns to me at this time he is very hard of hearing and difficult to communicate with at baseline. Reason For Visit: ACUTE ON CHRONIC RESPIRATORY FAILURE, PNA, Physical Exam Vital Signs: Temp Pulse Resp BP Pulse Ox 97.5 F 62 18 132/62 H 94 11/22/17 07:41 11/22/17 09:03 11/22/17 09:03 11/22/17 07:41 11/22/17 09:03 Intake & Output 11/22/17 11/23/17 11/24/17 06:59 06:59 06:59 Intake Total 2352 33 Output Total 25 Balance 2352 8 Weight 62.8 kg General appearance: PRESENT: no acute distress, largely unresponsive except to noxious stimuli Head exam: PRESENT: atraumatic, normocephalic Mouth exam: PRESENT: dry mucosa, NC in place Respiratory exam: PRESENT: rales, rhonchi, unlabored. ABSENT: accessory muscle use GI/Abdominal exam: PRESENT: normal bowel sounds, soft Neurological exam: PRESENT: obtunded Assessment & Plan - Diagnosis (1) Pneumonia Qualifiers: Pneumonia type: due to unspecified organism Laterality: right Lung location: lower lobe of lung Qualified Code(s): J18.1 - Lobar pneumonia, unspecified organism Is this a current diagnosis for this admission?: Yes (2) Acute and chronic respiratory failure with hypoxia Is this a current diagnosis for this admission?: Yes (3) Atrial fibrillation Qualifiers: Atrial fibrillation type: persistent Qualified Code(s): I48.1 - Persistent atrial fibrillation Is this a current diagnosis for this admission?: Yes (4) Chronic obstructive pulmonary disease Qualifiers: COPD type: COPD with acute lower respiratory infection Qualified Code(s): J44.0 - Chronic obstructive pulmonary disease with acute lower respiratory infection - Time Time Spent with patient: 15-24 minutes - Plan Summary Plan Summary: at family's request and in line with his wishes, continue current care with the focus of our care on comfort measures only. oncology social worker to begin arranging for outpt end of life care back at [facility] if possible vs inpatient hospice.
[2017-11-23] MEDS: GABAPENTIN 300 MG CAPSULE PO SCH (22:26)
[2017-11-24] MEDS: HYDROMORPHONE HCL INJ/PF 2 MG/ML AMPULE IV PRN ×7 (01:47→23:27)
[2017-11-24] MEDS: HEPARIN SOD (PORCINE) 5,000 UNIT/ML 1 ML SYRINGE SUBCUT SCH ×2 (05:06→13:32)
[2017-11-24] MEDS: SCOPOLAMINE HYDROBROMIDE 1.5 MG PATCH.TD72 TD SCH (10:09)
[2017-11-24] MEDS: LEVETIRACETAM 500 MG TABLET PO SCH (10:12)
[2017-11-24] MEDS: METOPROLOL SUCCINATE 50 MG TAB.SR.24H PO SCH (10:12)
[2017-11-24] MEDS: ROPINIROLE HCL 0.25 MG TABLET PO SCH (10:12)
[2017-11-24] MEDS: DOCUSATE SODIUM 100 MG CAPSULE PO SCH (10:12)
[2017-11-24] MEDS: LORAZEPAM INJ 2 MG/1 ML VIAL IV PRN ×2 (10:16→15:37)
[2017-11-24] MEDS ORDERED: OXYCODONE-ACETAMINOPHEN 5-325 MG TABLET PO PRN (12:00)
[2017-11-24] MEDS ORDERED: ONDANSETRON HCL INJ/PF 4 MG/2 ML SDV IV PRN (12:00)
--- NOTE | 2017-11-24 17:25 | PDOC PROGRESS REPORT ---
Subjective Progress Note for:: 11/24/17 Subjective:: This is a follow-up visit for acute on chronic respiratory failure and comfort care measures. In my discussion with the patient's family, they feel that he is getting restless at the 2-1/2 hour kem and that the medications are not lasting a full 3 hours. We have discussed changing his medications to q. one hour. They have tried the every 2 hour interval before and have not had as much success with the patient getting the medication on time Reason For Visit: ACUTE ON CHRONIC RESPIRATORY FAILURE, PNA, Physical Exam Vital Signs: Temp Pulse Resp BP Pulse Ox 97.5 F 62 18 132/62 H 94 11/22/17 07:41 11/22/17 09:03 11/22/17 09:03 11/22/17 07:41 11/22/17 09:03 Intake & Output 11/23/17 11/24/17 11/25/17 06:59 06:59 06:59 Intake Total 33 0 Output Total 25 100 Balance 8 -100 GENERAL: This is a well-developed and well-nourished appearing elderly white male resting in bed appearing quite ill and at the end of life. Lungs: The patient has auditory course breath sounds from the doorway. Neuro: He is moaning slightly and appears restless constantly moving his legs. Detailed exam is deferred due to comfort care only measures. Results Impressions: Chest X-Ray 11/20/17 12:17 IMPRESSION: Bibasilar densities as noted above Head CT 11/20/17 12:18 IMPRESSION: CHRONIC CHANGES OF ATROPHY AND MICROVASCULAR ISCHEMIA. NO ACUTE PROCESS. EVIDENCE OF ACUTE STROKE: NO. Assessment & Plan - Diagnosis (1) Acute and chronic respiratory failure with hypoxia Is this a current diagnosis for this admission?: Yes (2) Pneumonia Qualifiers: Pneumonia type: due to unspecified organism Laterality: right Lung location: lower lobe of lung Qualified Code(s): J18.1 - Lobar pneumonia, unspecified organism Is this a current diagnosis for this admission?: Yes (3) Atrial fibrillation Qualifiers: Atrial fibrillation type: persistent Qualified Code(s): I48.1 - Persistent atrial fibrillation Is this a current diagnosis for this admission?: Yes (4) Chronic obstructive pulmonary disease Qualifiers: COPD type: COPD with acute lower respiratory infection Qualified Code(s): J44.0 - Chronic obstructive pulmonary disease with acute lower respiratory infection (5) Need for comfort care Is this a current diagnosis for this admission?: Yes Plan: Change pain medications to every hour. Continue Ativan and comfort measures. - Time Time Spent with patient: 15-24 minutes
[2017-11-25] MEDS: HYDROMORPHONE HCL INJ/PF 2 MG/ML AMPULE IV PRN ×6 (01:48→09:17)
[2017-11-25] MEDS: HEPARIN SOD (PORCINE) 5,000 UNIT/ML 1 ML SYRINGE SUBCUT SCH ×2 (01:50→06:05)
[2017-11-25] MEDS: GABAPENTIN 300 MG CAPSULE PO SCH (01:50)
[2017-11-25] MEDS: LEVETIRACETAM 500 MG TABLET PO SCH ×2 (01:50→09:53)
[2017-11-25] MEDS: ROPINIROLE HCL 0.25 MG TABLET PO SCH (09:53)
[2017-11-25] MEDS: DOCUSATE SODIUM 100 MG CAPSULE PO SCH (09:53)
[2017-11-25] MEDS: METOPROLOL SUCCINATE 50 MG TAB.SR.24H PO SCH (09:53)
--- NOTE | 2017-11-25 12:29 | Death Summary ---
Summary Date : 11/25/17 Time of :: 09:55 Autopsy: No Resuscitation Status: Comfort Measures Only - Final Diagnosis (1) Comfort measures only status Is this a current diagnosis for this admission?: Yes (2) Acute and chronic respiratory failure with hypoxia Is this a current diagnosis for this admission?: Yes (3) Atrial fibrillation Is this a current diagnosis for this admission?: Yes (4) COPD exacerbation Is this a current diagnosis for this admission?: Yes (5) Pneumonia Is this a current diagnosis for this admission?: Yes Hospital Course:: Patient is 86-year-old gentleman that was admitted to our facility due to acute respiratory failure. Patient was found to have nosocomial acquired pneumonia and was placed on treatment. However patient's condition continued to worsen. The decision was made to make patient comfort care. Patient on 2017 at [id number]
== END 2017-11-25 11:45 | DRG 189 ==
LOC: ER 11:56 → EH 15:37 → 4N 18:18
PROVIDERS: ADMIT Family Medicine; ATTEND Family Medicine
PROC: 5A09457 Assistance with Respiratory Ventilation, 24-96 Consecutive Hours, Continuous Positive Airway Pressure (ICD-10-PCS; principal; 2017-11-20)
PROC: 3E0F73Z Introduction of Anti-inflammatory into Respiratory Tract, Via Natural or Artificial Opening (ICD-10-PCS; 2017-11-20)
DX: J96.21 Acute and chronic respiratory failure with hypoxia (principal); J18.1 Lobar pneumonia, unspecified organism; J44.1 Chronic obstructive pulmonary disease with (acute) exacerbation; J44.0 Chronic obstructive pulmonary disease with (acute) lower respiratory infection; I13.0 Hypertensive heart and chronic kidney disease with heart failure and stage 1 through stage 4 chronic kidney disease, or unspecified chronic kidney disease; N17.9 Acute kidney failure, unspecified; I48.1 Persistent atrial fibrillation; Z51.5 Encounter for palliative care; Z66 Do not resuscitate; I25.10 Atherosclerotic heart disease of native coronary artery without angina pectoris; I50.9 Heart failure, unspecified; K21.9 Gastro-esophageal reflux disease without esophagitis; M19.90 Unspecified osteoarthritis, unspecified site; F32.9 Major depressive disorder, single episode, unspecified; E11.22 Type 2 diabetes mellitus with diabetic chronic kidney disease; N18.3 Chronic kidney disease, stage 3 (moderate); D63.1 Anemia in chronic kidney disease; E87.5 Hyperkalemia; I25.2 Old myocardial infarction; Z99.81 Dependence on supplemental oxygen; Z95.1 Presence of aortocoronary bypass graft; Z95.5 Presence of coronary angioplasty implant and graft; Z90.49 Acquired absence of other specified parts of digestive tract; Z87.891 Personal history of nicotine dependence; Z79.01 Long term (current) use of anticoagulants; Z79.899 Other long term (current) drug therapy
CPT/HCPCS: 36415; 51701; 70450; 71045; 80053; 80307; 81001; 82550; 82553; 82803; 82962; 83605; 84484; 85025; 87040; 93005; 93010; 94640; 94660; 96365; 99285; J1170; J1644; J1815; J1956; J2020; J2060; J2543; J7030; J7620